=== PATIENT | female | born 1950 | race Caucasian/White ===

== ENCOUNTER → 2019-02-06 | Outpatient (REF) | payer MEDICARE ==
[~2019-02-06] MED LIST: AMLO-150; IBUP-1022 PO; LOSA50TA5 PO; NAPR-837 PO; OXYB10TA; RANI150T
[2019-02-07 12:49] LABS: PERCENT SATURATION 16.8 % (13.2-45.0)
== END ==
LOC: M LAB REF 11:21
PROVIDERS: ATTEND Internal Medicine
DX: D64.9 Anemia, unspecified (principal)

== ENCOUNTER → 2019-03-15 | Outpatient (REF) | payer MEDICARE ==
[~2019-03-15] MED LIST changes: -OXYB10TA; +OXYB10TA2
[2019-03-15 13:49] LABS: PERCENT SATURATION 17.6 % (13.2-45.0)
== END ==
LOC: M LAB REF 13:24
PROVIDERS: ATTEND Nurse Practitioner Family
DX: N18.3 Chronic kidney disease, stage 3 (moderate) (principal)

== ENCOUNTER → 2019-07-19 | Outpatient (REF) | payer MEDICARE | LOC: M LAB REF 17:18 | PROVIDERS: ATTEND Nurse Practitioner Family | DX: D64.9 Anemia, unspecified (principal) ==

== ENCOUNTER → 2020-09-03 | Outpatient (REF) | payer MEDICARE ==
[~2020-09-03] MED LIST changes: -AMLO-150; +AMLO-179; -OXYB10TA2; +OXYB10TA23
[2020-09-03 13:38] LABS: ALT/SGPT 18 U/L (12-78); BILIRUBIN,TOTAL 0.3 MG/DL (0.2-1.0); BLOOD UREA NITROGEN 45 MG/DL (7-18); C REACTIVE PROTEIN QUANTITATIV 0.36 MG/DL (0.00-0.30); CALCIUM LEVEL 9.8 MG/DL (8.8-10.2); CARBON DIOXIDE LEVEL 28 MEQ/L (21-32); CHLORIDE LEVEL 100 MEQ/L (98-107); COMPLEMENT C3 129 MG/DL (90-180); COMPLEMENT C4 27 MG/DL (10-40); CREATININE FOR GFR 1.46 MG/DL (0.55-1.30); GLUCOSE, FASTING 99 MG/DL (70-100); POTASSIUM SERUM 4.6 MEQ/L (3.5-5.1); RHEUMATOID FACTOR QUANT < 10.0 IU/ML (<15.0); SODIUM LEVEL 137 MEQ/L (136-145); TOTAL PROTEIN 7.7 GM/DL (6.4-8.2); URIC ACID 7.6 MG/DL (2.6-6.0)
[2020-09-03 13:58] LABS: HEPATITIS B SURFACE ANTIGEN NEGATIVE (NEGATIVE)
[2020-09-03 14:27] LABS: HEPATITIS C VIRUS ABY INDEX < 0.0 INDEX (<0.8)
[2020-09-05 23:09] LABS: ANA (HEP2) Positive (.); ANTI DS-DNA AB Negative (Negative); CYCLIC CITRULLINATED PEPTIDE 10 units (0-19); HEPATITIS B CORE ANTIBODY IGG Negative (Negative); SSA SJOGRENS A <0.2 AI (0.0-0.9); SSB SJOGRENS B <0.2 AI (0.0-0.9)
== END ==
LOC: M SFHCRHEU 10:13
PROVIDERS: ATTEND Internal Medicine
DX: L93.0 Discoid lupus erythematosus (principal); M35.01 Sjogren syndrome with keratoconjunctivitis; M25.50 Pain in unspecified joint; N18.32 Chronic kidney disease, stage 3b

== ENCOUNTER → 2020-09-08 | Outpatient (CLI) | payer MEDICARE ==
--- NOTE | 2020-09-09 09:44 | REP ---
INDICATION: POLYARTHRALGIA COMPARISON: None. TECHNIQUE: AP, lateral, bilateral oblique views right and left hand. FINDINGS: Right hand: Moderate arthritic changes primarily noted at the 1st and 2nd carpometacarpal joints includes subchondral sclerosis/heterogeneity with subtle subchondral cystic changes, joint space narrowing, and mild subluxation along with small amount of suspected chondrocalcinosis and heterotopic calcification. Interphalangeal joints demonstrate subchondral sclerosis with minimal joint space narrowing as well as marginal spurring primarily noted at the 1st interphalangeal and 2nd DIP joints. No acute fracture or dislocation. Left hand: Mild/early moderate arthritic changes primarily noted at the 1st and 2nd carpometacarpal joints including subchondral sclerosis, subtle heterogeneity, joint space narrowing and chondrocalcinosis as well as slight chronic subluxation. Early moderate arthritic changes at the interphalangeal joints include subchondral sclerosis with mild joint space narrowing and elements of marginal spurring primarily involving the 1st and 2nd interphalangeal joints. No evidence for acute fracture or dislocation. IMPRESSION: Mild/moderate osteoarthritic degenerative changes. <Electronically signed by Chilango Mclean > 09/09/20 [id number]
== END ==
LOC: M WUC 11:31
PROVIDERS: ATTEND Internal Medicine
DX: M25.50 Pain in unspecified joint (principal)

== ENCOUNTER → 2020-10-23 | Outpatient (REF) | payer MEDICARE ==
[2020-10-23 18:04] LABS: PERCENT SATURATION 15.8 % (13.2-45.0)
== END ==
LOC: M LAB REF 16:49
PROVIDERS: ATTEND Nurse Practitioner Family
DX: D50.9 Iron deficiency anemia, unspecified (principal)

== ENCOUNTER → 2021-03-11 | Outpatient (REF) | payer MEDICARE | LOC: M LAB REF 17:46 | PROVIDERS: ATTEND Nurse Practitioner Family | DX: N39.0 Urinary tract infection, site not specified (principal) ==

== ENCOUNTER 2021-05-18 14:21 | Inpatient (IN) | payer MEDICARE ==
[~2021-05-18] VITALS: Ht 149.9 cm; Wt 93.3 kg
[~2021-05-18 14:21] MED LIST changes: -OXYB10TA23; +OXYB10TA23 PO
[2021-05-18] MEDS ORDERED: NS 1,000 ML IV SCH ×2 (15:30→17:40)
[2021-05-18] MEDS ORDERED: NS 500 ML IV ONE (15:30)
[2021-05-18 16:01] LABS: HEMATOCRIT 30.4 % (36.0-47.0); HEMOGLOBIN 9.6 g/dl (12.0-15.5); LYMPH # 0.4 10^3/uL (1.5-5.0); LYMPH % 4.4 % (24.0-44.0); MEAN CORPUSCULAR HEMOGLOBIN 27.3 pg (27.0-33.0); MEAN CORPUSCULAR HGB CONC 31.6 g/dl (32.0-36.5); MEAN CORPUSCULAR VOLUME 86.4 fl (80.0-96.0); MONO # 0.4 10^3/uL (0.0-0.8); MONO % 4.3 % (2.0-8.0); NEUTROPHILS # 8.4 10^3/uL (1.5-8.5); NEUTROPHILS % 90.7 % (36.0-66.0); PLATELET COUNT, AUTOMATED 216 10^3/uL (150-450); RED BLOOD COUNT 3.52 10^6/uL (4.00-5.40); WHITE BLOOD COUNT 9.3 10^3/uL (4.0-10.0)
--- NOTE | 2021-05-18 16:03 | REP ---
INDICATION: cough COMPARISON: 09/19/2018 TECHNIQUE: Portable AP view of the chest FINDINGS: Considerable areas of opacity and consolidation extending from the right hilum to the right upper lobe as well as left perihilar and lower lobe areas of consolidation are noted. Visualized portions of the cardiac silhouette appears stable. No pneumothorax. No definite effusion. Skeletal structures demonstrate degenerative changes to the thoracic spine and bilateral shoulders. IMPRESSION: Significant bilateral areas of opacity/consolidation. Follow-up to resolution is required. Differential diagnosis cannot exclude malignancy. <Electronically signed by Chilango Mclean > 05/18/21 [id number]
[2021-05-18] MEDS ORDERED: dexameTHASONE 4 MG/ML 1ML VIAL (J1100 PER 1MG) IV ONE (16:10)
[2021-05-18 16:33] LABS: ALBUMIN 2.8 GM/DL (3.2-5.2); BILIRUBIN,TOTAL 0.3 MG/DL (0.2-1.0); CREATININE FOR GFR 2.17 MG/DL (0.55-1.30); POTASSIUM SERUM 3.5 MEQ/L (3.5-5.1); TOTAL PROTEIN 6.9 GM/DL (6.4-8.2)
[2021-05-18 16:58] LABS: ABG BASE EXCESS -8.3 (-2.0-2.0); ABG HCO3 18.3 MEQ/L (22.0-26.0); ABG O2 SATURATION 40.6 % (95.0-99.0); ABG PARTIAL PRESSURE CO2 41.7 mmHg (35.0-45.0); ABG STANDARD HCO3 16.8 MEQ/L (22.0-26.0); ABG TOTAL CO2 19.5 MEQ/L (23.0-31.0); ABG pH (ARTERIAL) 7.259 UNITS (7.350-7.450)
[2021-05-18 16:59] LABS: ABG PARTIAL PRESSURE O2 23.9 mmHg (75.0-100.0)
[2021-05-18] MEDS ORDERED: LOSA25TA14 PO (17:22)
[2021-05-18] MEDS ORDERED: FURO20TA2 PO (17:22)
[2021-05-18] MEDS ORDERED: ERGO500029 PO (17:27)
[2021-05-18] MEDS ORDERED: CHLO125TA PO (17:27)
[2021-05-18] MEDS ORDERED: OMEP-218 PO (17:27)
[2021-05-18] MEDS ORDERED: HOME MED LIST COMPLETE! XX SCH (17:30)
[2021-05-18] MEDS: COMBIVENT RESPIMAT 100-20MCG INHALER 4GM INH SCH ×3 (17:35→17:37)
--- NOTE | 2021-05-18 17:37 | HPEPDOC ---
[facility] Medical History & Physical Date of Admission May 18, 2021 Date of Service: May 18, 2021 History and Physical Chief complaint: Who presented to ER with lightheadedness and blurred vision; possible syncopal episode History of present illness: Patient is a 70-year-old female with a PMHx of HTN, CKD3 (Baseline Cr of 1.6), Hyperactive bladder, Seasonal allergies, who presented to the emergency room by ambulance after she was reported to have a syncopal episode. Patient reported that she was having lightheadedness and felt that she was going to pass out. However, she sat down and the next remembers her daughter mentioning that she called the ambulance. Patient denies any chest pain, shortness of breath. Reports a cough without any significant sputum production. Denies any palpitations. Patient reports that shes been experiencing these symptoms since 05/12. Patient denies any nausea, vomiting, abdominal pain, constipation. She does report some diarrhea that started this morning. Patient denies any fevers, but reports chills. She reports a poor appetite and is unsure of any changes in her weight. Past Medical History: HTN CKD3 (Baseline Cr of 1.6) Hyperactive bladder Seasonal allergies Past Surgical History: Cholecystectomy Hysterectomy Tubal ligation Allergies: See below Medications: See below Family History: - Mother with no significant past medical history - Father with a history of stroke and congestive heart failure Social History: - Denies the use of alcohol, tobacco or illicit drugs - Denies recent travel or sick contacts - Lives with , son and granddaughter - Occupation; patient is retired from [employer] Review of Systems: 10 point review of systems complete, all negative otherwise stated in HPI Physical exam: - Vitals: BP [116/65], HR [67], RR [20], Sat [95%RA], Temp [98.3F] - General: Lying in bed, Speaking in full sentences, AAOx3 - HEENT: NC, AT, PERRLA - CVS: RRR, +S1S2 - Lungs: Fair air entry bilaterally, No appreciable wheezing / rales / rhonchi - Abdomen: Soft, Non-distended, Non-tender - Extremities: LE do not have pitting edema, No calf tenderness - Neuro: 5/5 strength at bilateral LE, RUE with 5/5 strength, LUE with cast in place - Skin: No visible rashes Labs: See below Imaging: CXR 05/18: Significant bilateral areas of opacity/consolidation. Follow-up to resolution is required. Differential diagnosis cannot exclude malignancy. Duplex US 05/18: No evidence for deep venous thrombosis. EKG: See below Assessment and Plan: Elevated Cr with CKD3 - Baseline creatinine of 1.6 - Patients creatinine is 2.1 - Will hold losartan and HCTZ - Will check urine electrolytes / urinalysis - s/p NS 500c in ER - Will start IV fluid hydration Reported syncope - likely 2/2 orthostatic hypotension - 2/2 viral illness - Will check orthostatic vital signs - Will check ECHO / Telemetry - EKG reviewed - Will trend troponins - Will start IV fluids COVID19 - Patient reports a nonproductive cough and myalgia - Has not been vaccinated - Saturating well on room air - Patient has received Levofloxacin / Dexamethasone / Albuterol in the ER - Given the patient is not hypoxic; she is not a candidate for Remdesivir or Dexamethasone HTN - Will check orthostatic blood pressures - Will hold Losartan / HCTZ Left arm fracture - s/p casting at the end of April - Will have outpatient follow up with Orthopedic surgery on discharge Hyperactive bladder - c/w Oxybutynin Seasonal allergies - c/w Ranitidine DVT prophylaxis - Will start Heparin SQ Disposition: - Will keep on observation status for IV fluid hydration - Anticipate that she will require monoclonal antibodies as an outpatient infusion on discharge Vital Signs Vital Signs Date Time Temp Pulse Resp B/P (MAP) Pulse Ox O2 Delivery O2 Flow Rate FiO2 05/18/21 15:55 Room Air 05/18/21 15:54 98.3 67 20 116/65 (82) 95 Laboratory Data Labs 24H Laboratory Tests 2 05/18/21 15:39: Immature Granulocyte % (Auto) 0.6, Neutrophils (%) (Auto) 90.7H, Lymphocytes (%) (Auto) 4.4L, Monocytes (%) (Auto) 4.3, Eosinophils (%) (Auto) 0.0, Basophils (%) (Auto) 0.0, Neutrophils # (Auto) 8.4, Lymphocytes # (Auto) 0.4L, Monocytes # (Auto) 0.4, Eosinophils # (Auto) 0.0, Basophils # (Auto) 0.0, Nucleated Red Blood Cells % (auto) 0.0, Anion Gap 13, Glomerular Filtration Rate 24.0L, Calcium Level 8.0L, Total Bilirubin 0.3, Aspartate Amino Transf (AST/SGOT) 43H, Alanine Aminotransferase (ALT/SGPT) 19, Alkaline Phosphatase 68, Total Protein 6.9, Albumin 2.8L, Albumin/Globulin Ratio 0.7L 05/18/21 16:40: Blood Gas Bicarbonate Standard 16.8L, Arterial Blood pH 7.259L, Arterial Blood Partial Pressure CO2 41.7, Arterial Blood Partial Pressure O2 23.9*L, Arterial Blood Total CO2 19.5L, Arterial Blood HCO3 18.3L, Arterial Blood Base Excess - 8.3L, Arterial Blood Oxygen Saturation 40.6L CBC/BMP Laboratory Tests 05/18/21 15:39 Microbiology Microbiology 05/18/21 Respiratory Virus Panel (PCR) (ABHIJEET) - Final, Complete SARS-CoV-2 (COVID 19) Home Medications Scheduled Chlorthalidone (Chlorthalidone) 25 Mg Tablet, 25 MG PO DAILY Ergocalciferol (Vitamin D2) (Vitamin D2) 50,000 Units Cap, 50,000 UNITS PO 1XWK ON WEDNESDAYS Losartan Potassium (Losartan Potassium) 25 Mg Tablet, 25 MG PO QHS Omeprazole (Omeprazole) 20 Mg Capsule.dr, 20 MG PO DAILY Oxybutynin Chloride (Oxybutynin Chloride ER) 10 Mg Tab, 10 MG PO DAILY Allergies Coded Allergies: cephalexin (Verified Allergy, Intermediate, hives, 11/27/18) TOSHA CALDERON MD May 18, 2021 17:24
--- NOTE | 2021-05-18 17:39 | REP ---
INDICATION: shortness of breath, sedentary COMPARISON: None. TECHNIQUE: Castillo scale and color Doppler evaluation using linear high frequency transducer. FINDINGS: Ultrasound examination of the right and left lower extremity deep venous structures from the common femoral veins through the popliteal veins demonstrates normal compressibility flow and wave patterns in response to respiration and augmentation. There is no evidence for deep venous thrombosis. Evaluation of the calf veins is incomplete due to technical factors and body habitus. IMPRESSION: No evidence for deep venous thrombosis. <Electronically signed by Chilango Mclean > 05/18/21 [id number]
[2021-05-18 19:05] LABS: C REACTIVE PROTEIN QUANTITATIV 5.57 MG/DL (0.00-0.30); CALCIUM LEVEL 8.7 MG/DL (8.8-10.2); CK-MB VALUE MASS 5.5 NG/ML (<3.6); CREATININE FOR GFR 2.11 MG/DL (0.55-1.30); GLOMERULAR FILTRATION RATE 24.8 (>45); MB/CK RELATIVE INDEX 2.63 (< OR =4); POTASSIUM SERUM 3.9 MEQ/L (3.5-5.1); TROPONIN I 0.02 NG/ML (< 0.10)
--- NOTE | 2021-05-18 19:32 | ECGEPIP ---
[facility] - ED Test Date: 2021-05-18 Pat Name: GALINA GREEWNOOD Department: Room: - Gender: Female Enrollment Manager: HA : 1950 Requested By: JEANNA Abreu Order Number: [id number] Reading MD: Shonda Cameron Measurements Intervals Bovey Rate: 105 P: 12 VA: 156 QRS: -51 QRSD: 126 T: 90 QT: 374 QTc: 494 Interpretive Statements Sinus tachycardia Left axis deviation Left ventricular hypertrophy with QRS widening and repolarization abnormality ( R in aVL , Sevier product , Romhilt-Gonzalez ) Nonspecific ST T wave changes IVCD No prior ECG for comparison Electronically Signed on 05-18-2021 19:32:12 EDT by Shonda Cameron
[2021-05-18] MEDS ORDERED: LevoFLOXacin IV 750 MG in IV 1 EA IV ONE (21:00)
[2021-05-18 22:37] LABS: MB/CK RELATIVE INDEX 2.67 (< OR =4); TROPONIN I 0.02 NG/ML (< 0.10)
[2021-05-19] MEDS ORDERED: UNRESOLVED CLARIFICATION ENTRY XX SCH (00:01)
[2021-05-19] MEDS ORDERED: amLODIPine 5 MG TAB PO ONE (02:30)
[2021-05-19 03:00] VITALS: BP 121/58
[2021-05-19] MEDS: guaiFENesin ER 600 MG TAB PO SCH ×3 (03:28→20:13)
[2021-05-19] MEDS: HEPARIN SOD (PORCINE) 5000UNITS/ML 1ML VIAL/SYRINGE SC SCH ×4 (03:29→20:15)
[2021-05-19] MEDS: ACETAMINOPHEN TAB 650MG DOSE (2X325MG) PO PRN ×2 (04:49→09:23)
[2021-05-19 06:33] LABS: HEMOGLOBIN 9.2 g/dl (12.0-15.5); LYMPH # 0.4 10^3/uL (1.5-5.0); LYMPH % 6.3 % (24.0-44.0); MEAN CORPUSCULAR HEMOGLOBIN 27.6 pg (27.0-33.0); MEAN CORPUSCULAR HGB CONC 32.9 g/dl (32.0-36.5); MEAN CORPUSCULAR VOLUME 84.1 fl (80.0-96.0); MONO # 0.2 10^3/uL (0.0-0.8); MONO % 2.4 % (2.0-8.0); NEUTROPHILS # 5.7 10^3/uL (1.5-8.5); NEUTROPHILS % 90.5 % (36.0-66.0); PLATELET COUNT, AUTOMATED 202 10^3/uL (150-450); RED BLOOD COUNT 3.33 10^6/uL (4.00-5.40); WHITE BLOOD COUNT 6.3 10^3/uL (4.0-10.0)
[2021-05-19 06:50] LABS: CALCIUM LEVEL 8.2 MG/DL (8.8-10.2); CREATININE FOR GFR 1.65 MG/DL (0.55-1.30); GLOMERULAR FILTRATION RATE 32.9 (>45); MAGNESIUM LEVEL 1.8 MG/DL (1.8-2.4); POTASSIUM SERUM 3.3 MEQ/L (3.5-5.1)
[2021-05-19 07:03] LABS: CK-MB VALUE MASS 7.5 NG/ML (<3.6); MB/CK RELATIVE INDEX 2.63 (< OR =4); TROPONIN I 0.04 NG/ML (< 0.10)
[2021-05-19 08:00] VITALS: BP 113/59
[2021-05-19] MEDS ORDERED: POTASSIUM CHLORIDE 10MEQ SR TABLET PO ONE (08:05)
[2021-05-19] MEDS: OMEPRAZOLE 20 MG CAP PO SCH (09:21)
[2021-05-19] MEDS: amLODIPine 5 MG TAB PO SCH ×2 (09:21→20:14)
[2021-05-19] MEDS: oxyBUTYnin *DITROPAN XL* 5 MG TABCR PO SCH (09:22)
[2021-05-19 12:00] VITALS: BP 115/60
--- NOTE | 2021-05-19 13:24 | IPNPDOC ---
Date Seen The patient was seen on 05/19/21. Progress Note SUBJECTIVE: seen at bedside. Requires 6L to sat at 92%. Reports fatigue, SOB. Denies CP, palpitations, n/v/d. OBJECTIVE PHYSICAL EXAMINATION: VITAL SIGNS: please see below General: NAD, comfortable HEENT: PERRLA, EOMI, sclerae clear Neck: supple, normal ROM, no JVD Respiratory: fair air entry bilaterally, no crackles, no wheeze CVS: RRR, normal S1, S2, no murmurs Abdo: soft, no masses, no hepatosplenomegaly, BS+, no rebound tenderness Extremities: no edema, pulses 2+ MSK: no joint deformities, normal ROM Neuro: no focal neuro deficits, moving all 4 extremities, CN2-12 intact. Strength 5/5 in all 4 extremities. No nystagmus. Psych: calm, cooperative, AAO x 3 LABORATORY DATA, IMAGING STUDIES, MICROBIOLOGY: Please see below. DVT prophylaxis ordered?: heparin ASSESSMENT AND PLAN: 70-year-old female with a PMHx of HTN, CKD3 (Baseline Cr of 1.6), Hyperactive bladder, Seasonal allergies, who presented to the emergency room by ambulance after she was reported to have a syncopal episode. PROBLEMS: Elevated Cr with CKD3 - Baseline creatinine of 1.6 - Patients creatinine is 2.1 - Will hold losartan and HCTZ - Will check urine electrolytes / urinalysis - s/p NS 500c in ER - Will start IV fluid hydration Reported syncope - likely 2/2 orthostatic hypotension - 2/2 viral illness - Will check orthostatic vital signs - Will check ECHO / Telemetry - EKG reviewed - Will trend troponins - stop IVF COVID19 - Patient reports a nonproductive cough and myalgia - Has not been vaccinated - Patient has received Levofloxacin / Dexamethasone / Albuterol in the ER - requires 6L to maintain saturation. - start remdesivir, dexamethasone 6 mg IV daily. HTN - Will check orthostatic blood pressures - Will hold Losartan / HCTZ Left arm fracture - s/p casting at the end of April - Will have outpatient follow up with Orthopedic surgery on discharge Hyperactive bladder - c/w Oxybutynin Seasonal allergies - c/w Ranitidine DVT prophylaxis - Will start Heparin SQ Disposition: - Will keep on observation status for IV fluid hydration - Anticipate that she will require monoclonal antibodies as an outpatient infusion on discharge VS, I&O, 24H, Opal Vital Signs/I&O Vital Signs Date Time Temp Pulse Resp B/P (MAP) Pulse Ox O2 Delivery O2 Flow Rate FiO2 05/19/21 12:39 90 5.0 05/19/21 12:00 97.5 73 27 115/60 (78) Nasal Cannula I&O- Last 24 Hours up to 6 AM 05/19/21 06:00 Intake Total 700 ml Balance 700 ml Laboratory Data 24H LABS Laboratory Tests 2 05/18/21 15:39: Immature Granulocyte % (Auto) 0.6, Neutrophils (%) (Auto) 90.7H, Lymphocytes (%) (Auto) 4.4L, Monocytes (%) (Auto) 4.3, Eosinophils (%) (Auto) 0.0, Basophils (%) (Auto) 0.0, Neutrophils # (Auto) 8.4, Lymphocytes # (Auto) 0.4L, Monocytes # (Auto) 0.4, Eosinophils # (Auto) 0.0, Basophils # (Auto) 0.0, Nucleated Red Blood Cells % (auto) 0.0, Anion Gap 13, Glomerular Filtration Rate 24.0L, Calcium Level 8.0L, Total Bilirubin 0.3, Aspartate Amino Transf (AST/SGOT) 43H, Alanine Aminotransferase (ALT/SGPT) 19, Alkaline Phosphatase 68, Total Protein 6.9, Albumin 2.8L, Albumin/Globulin Ratio 0.7L 05/18/21 16:40: Blood Gas Bicarbonate Standard 16.8L, Arterial Blood pH 7.259L, Arterial Blood Partial Pressure CO2 41.7, Arterial Blood Partial Pressure O2 23.9*L, Arterial Blood Total CO2 19.5L, Arterial Blood HCO3 18.3L, Arterial Blood Base Excess - 8.3L, Arterial Blood Oxygen Saturation 40.6L 05/18/21 18:10: Anion Gap 12, Glomerular Filtration Rate 24.8L, Calcium Level 8.7L, Osmolality 299, Ferritin 650H, Lactate Dehydrogenase 530H, Total Creatine Kinase 209H, Creatine Kinase MB 5.5H, Creatine Kinase MB Relative Index 2.63, Troponin I 0.02, C-Reactive Protein, Quantitative 5.57H, AC-Bya-F-Type Natriuretic Peptide 3261H, Procalcitonin 0.05 05/18/21 21:37: Total Creatine Kinase 225H, Creatine Kinase MB 6.0H, Creatine Kinase MB Relative Index 2.67, Troponin I 0.02 05/19/21 06:06: Immature Granulocyte % (Auto) 0.8, Neutrophils (%) (Auto) 90.5H, Lymphocytes (%) (Auto) 6.3L, Monocytes (%) (Auto) 2.4, Eosinophils (%) (Auto) 0.0, Basophils (%) (Auto) 0.0, Neutrophils # (Auto) 5.7, Lymphocytes # (Auto) 0.4L, Monocytes # (Auto) 0.2, Eosinophils # (Auto) 0.0, Basophils # (Auto) 0.0, Nucleated Red Blood Cells % (auto) 0.0, Anion Gap 12, Glomerular Filtration Rate 32.9L, Calcium Level 8.2L, Magnesium Level 1.8, Total Creatine Kinase 285H, Creatine Kinase MB 7.5H, Creatine Kinase MB Relative Index 2.63, Troponin I 0.04# CBC/BMP Laboratory Tests 05/18/21 15:39 05/18/21 18:10 05/19/21 06:06 Microbiology Microbiology 05/18/21 Respiratory Virus Panel (PCR) (ABHIJEET) - Final, Complete SARS-CoV-2 (COVID 19) DIANA LLANOS MD May 19, 2021 13:24
[2021-05-19] MEDS: dexameTHASONE 4 MG/ML 1ML VIAL (J1100 PER 1MG) IV SCH (13:37)
[2021-05-19] MEDS: NYSTATIN 100,000 UNITS/GM TOPICAL PWD 15 GM TOP SCH ×2 (15:30→20:14)
[2021-05-19 16:00] VITALS: BP 118/68
[2021-05-19] MEDS ORDERED: REMDESIVIR 200 MG in NS 250 ML IV ONE (16:00)
[2021-05-19] MEDS: REMDESIVIR 100 MG in NS 250 ML IV SCH (17:08)
[2021-05-19] MEDS ORDERED: SODIUM CHLORIDE 0.9% INJ 10 ML SYR IV ONE (18:00)
[2021-05-19 20:00] VITALS: BP 128/72
[2021-05-20] VITALS: BP 122/79
[2021-05-20 04:00] VITALS: BP 118/56
[2021-05-20] MEDS: HEPARIN SOD (PORCINE) 5000UNITS/ML 1ML VIAL/SYRINGE SC SCH (05:49)
[2021-05-20 06:32] LABS: HEMOGLOBIN 9.6 g/dl (12.0-15.5); LYMPH # 0.7 10^3/uL (1.5-5.0); LYMPH % 8.5 % (24.0-44.0); MEAN CORPUSCULAR HEMOGLOBIN 27.4 pg (27.0-33.0); MEAN CORPUSCULAR VOLUME 85.7 fl (80.0-96.0); MONO # 0.6 10^3/uL (0.0-0.8); MONO % 8.1 % (2.0-8.0); NEUTROPHILS # 6.4 10^3/uL (1.5-8.5); NEUTROPHILS % 82.1 % (36.0-66.0); PLATELET COUNT, AUTOMATED 218 10^3/uL (150-450); WHITE BLOOD COUNT 7.8 10^3/uL (4.0-10.0)
[2021-05-20 06:40] LABS: INR 1.03; PROTHROMBIN TIME 13.9 SECONDS (12.7-14.5)
[2021-05-20 06:41] LABS: PARTIAL THROMBOPLASTIN TIME 26.6 SECONDS (25.9-37.0)
[2021-05-20 06:43] LABS: D-DIMER QUANT 1927.3 ng/ml (<500)
[2021-05-20 06:59] LABS: ALBUMIN 2.5 GM/DL (3.2-5.2); ALT/SGPT 21 U/L (12-78); BILIRUBIN,DIRECT < 0.1 MG/DL (0.0-0.2); BILIRUBIN,TOTAL 0.3 MG/DL (0.2-1.0); BLOOD UREA NITROGEN 47 MG/DL (7-18); C REACTIVE PROTEIN QUANTITATIV 3.48 MG/DL (0.00-0.30); CALCIUM LEVEL 8.6 MG/DL (8.8-10.2); CARBON DIOXIDE LEVEL 19 MEQ/L (21-32); CHLORIDE LEVEL 110 MEQ/L (98-107); CPK CREATINE PHOSPHOKINASE 397 U/L (26-192); CREATININE FOR GFR 1.54 MG/DL (0.55-1.30); FERRITIN 804 NG/ML (8-252); GLOMERULAR FILTRATION RATE 35.7 (>45); GLUCOSE, FASTING 109 MG/DL (70-100); LDH LACTATE DEHYDROGENASE 554 U/L (84-246); MAGNESIUM LEVEL 1.8 MG/DL (1.8-2.4); POTASSIUM SERUM 3.8 MEQ/L (3.5-5.1); SODIUM LEVEL 139 MEQ/L (136-145); TOTAL PROTEIN 7.2 GM/DL (6.4-8.2); TROPONIN I 0.02 NG/ML (< 0.10)
[2021-05-20 08:00] VITALS: BP 106/57
[2021-05-20] MEDS ORDERED: COMBIVENT RESPIMAT 100-20MCG INHALER 4GM INH PRN (08:05)
[2021-05-20] MEDS: NYSTATIN 100,000 UNITS/GM TOPICAL PWD 15 GM TOP SCH ×2 (09:03→20:47)
[2021-05-20] MEDS: dexameTHASONE 4 MG/ML 1ML VIAL (J1100 PER 1MG) IV SCH (09:04)
[2021-05-20] MEDS: guaiFENesin ER 600 MG TAB PO SCH ×2 (09:04→20:47)
[2021-05-20] MEDS: OMEPRAZOLE 20 MG CAP PO SCH (09:05)
[2021-05-20] MEDS: amLODIPine 5 MG TAB PO SCH ×2 (09:05→20:47)
[2021-05-20] MEDS: oxyBUTYnin *DITROPAN XL* 5 MG TABCR PO SCH (09:05)
--- NOTE | 2021-05-20 11:47 | REP ---
INDICATION: hypoxia, covid COMPARISON: 05/18/2021 TECHNIQUE: Portable AP view of the chest FINDINGS: Diffuse bilateral airspace disease appears increased from prior examination specifically involving right mid to lower lung zone and left base. Cardiac silhouette is stable. No definite effusion. No pneumothorax. Skeletal structures are stable. IMPRESSION: Increased opacities noted bilaterally. <Electronically signed by Chilango Mclean > 05/20/21 1148
[2021-05-20 11:50] VITALS: BP 111/75
--- NOTE | 2021-05-20 12:26 | IPNPDOC ---
Date Seen The patient was seen on 05/20/21. Progress Note SUBJECTIVE: Patient seen examined at bedside. Oxygen requirement has increased patient is now on Vapotherm. She was started on dexamethasone and remdesivir on 05/19/2021. She appears to be quite comfortable on Vapotherm but desaturates when it is taken off. She denies any chest pain, palpitations, nausea, vomiting and diarrhea. OBJECTIVE PHYSICAL EXAMINATION: VITAL SIGNS: please see below General: NAD, comfortable HEENT: PERRLA, EOMI, sclerae clear Neck: supple, normal ROM, no JVD Respiratory: fair air entry bilaterally, no crackles, no wheeze CVS: RRR, normal S1, S2, no murmurs Abdo: soft, no masses, no hepatosplenomegaly, BS+, no rebound tenderness Extremities: no edema, pulses 2+ MSK: no joint deformities, normal ROM Neuro: no focal neuro deficits, moving all 4 extremities, CN2-12 intact. Strength 5/5 in all 4 extremities. No nystagmus. Psych: calm, cooperative, AAO x 3 LABORATORY DATA, IMAGING STUDIES, MICROBIOLOGY: Please see below. DVT prophylaxis ordered?: Heparin has been switched to weightbase prophylactic dosing of Lovenox per Covid guidelines to 0.5 mg/kg every 12. ASSESSMENT AND PLAN: 70-year-old female with a PMHx of HTN, CKD3 (Baseline Cr of 1.6), Hyperactive bladder, Seasonal allergies, who presented to the emergency room by ambulance after she was reported to have a syncopal episode. She was found to have COVID-19. Patient's oxygen requirements have increased from room air to nasal cannula to now Vapotherm. PROBLEMS: TRINA on CKD3 - Creatinine has now improved to baseline this morning it is 1.54. - BP appropriate, can resume losartan and HCTZ as BP rises. - urine lytes were not sent. Reported syncope - likely 2/2 orthostatic hypotension - 2/2 viral illness - ordered orthostatic vital signs., - 2D echo pending. - no events on telemetry - Troponin remains in normal limits. COVID19 - Patient reports a nonproductive cough and myalgia - Has not been vaccinated - Patient has received Levofloxacin / Dexamethasone / Albuterol in the ER - requires 6L to maintain saturation. - Remdesivir (Day #2), Dexamethasone 6 mg IV (Day #2) - Start Baricitinib. D/w Dr. Medina of pulmonology, agrees with plan. HTN - Will check orthostatic blood pressures - Will hold Losartan / HCTZ Left arm fracture - s/p casting at the end of April - Will have outpatient follow up with Orthopedic surgery on discharge Hyperactive bladder - c/w Oxybutynin Seasonal allergies - c/w Ranitidine DVT prophylaxis - Will start Heparin SQ Disposition: - change to inpatient status, as now on vapotherm - admission will span > 2 midnights. DVT ppx: lovenox 0.5 mg q12h. VS, I&O, 24H, Fishbone Vital Signs/I&O Vital Signs Date Time Temp Pulse Resp B/P (MAP) Pulse Ox O2 Delivery O2 Flow Rate FiO2 05/20/21 12:00 96 HVNI-Vapotherm 40.0 100 05/20/21 11:50 97.5 98 22 111/75 (87) I&O- Last 24 Hours up to 6 AM 05/20/21 05:59 Intake Total 2300 ml Output Total 350 ml Balance 1950 ml Laboratory Data 24H LABS Laboratory Tests 2 05/20/21 06:12: Immature Granulocyte % (Auto) 1.3, Neutrophils (%) (Auto) 82.1H, Lymphocytes (%) (Auto) 8.5L, Monocytes (%) (Auto) 8.1H, Eosinophils (%) (Auto) 0.0, Basophils (%) (Auto) 0.0, Neutrophils # (Auto) 6.4, Lymphocytes # (Auto) 0.7L, Monocytes # (Auto) 0.6, Eosinophils # (Auto) 0.0, Basophils # (Auto) 0.0, Nucleated Red Blood Cells % (auto) 0.0, Prothrombin Time 13.9, Prothromb Time International Ratio 1.03, Activated Partial Thromboplast Time 26.6, Fibrinogen 436, D-Dimer, Quantitative 1927.30H, Anion Gap 10, Glomerular Filtration Rate 35.7L, Calcium Level 8.6L, Magnesium Level 1.8, Ferritin 804H, Total Bilirubin 0.3, Direct Bilirubin < 0.1, Aspartate Amino Transf (AST/SGOT) 52H, Alanine Aminotransferase (ALT/SGPT) 21, Alkaline Phosphatase 67, Lactate Dehydrogenase 554H, Total Creatine Kinase 397H, Troponin I 0.02#, C-Reactive Protein, Quantitative 3.48H, Total Protein 7.2, Albumin 2.5L, Albumin/Globulin Ratio 0.5L CBC/BMP Laboratory Tests 05/20/21 06:12 Microbiology Microbiology 05/18/21 Respiratory Virus Panel (PCR) (ABHIJEET) - Final, Complete SARS-CoV-2 (COVID 19) DIANA LLANOS MD May 20, 2021 12:26
[2021-05-20] MEDS: BARICITINIB 2MG TABLET (OLUMIANT) FOR EUA PO SCH (14:07)
[2021-05-20 16:00] VITALS: BP 106/60
[2021-05-20] MEDS: SODIUM CHLORIDE 0.9% INJ 10 ML SYR IV SCH (16:03)
[2021-05-20 20:00] VITALS: BP 116/69
[2021-05-21] VITALS: BP 109/60
[2021-05-21 04:00] VITALS: BP 137/62
[2021-05-21 06:03] LABS: HEMATOCRIT 30.1 % (36.0-47.0); HEMOGLOBIN 9.6 g/dl (12.0-15.5); LYMPH # 1.1 10^3/uL (1.5-5.0); LYMPH % 15.7 % (24.0-44.0); MEAN CORPUSCULAR HEMOGLOBIN 27.2 pg (27.0-33.0); MEAN CORPUSCULAR HGB CONC 31.9 g/dl (32.0-36.5); MEAN CORPUSCULAR VOLUME 85.3 fl (80.0-96.0); MONO # 0.9 10^3/uL (0.0-0.8); MONO % 12.7 % (2.0-8.0); NEUTROPHILS # 4.9 10^3/uL (1.5-8.5); PLATELET COUNT, AUTOMATED 268 10^3/uL (150-450); RED BLOOD COUNT 3.53 10^6/uL (4.00-5.40)
[2021-05-21 06:23] LABS: CALCIUM LEVEL 8.5 MG/DL (8.8-10.2); CREATININE FOR GFR 1.38 MG/DL (0.55-1.30); GLOMERULAR FILTRATION RATE 40.5 (>45); MAGNESIUM LEVEL 1.9 MG/DL (1.8-2.4)
[2021-05-21] MEDS ORDERED: FLUBLOK(EGG FREE)(QUAD)INFLUENZA VACC 0.5ML SYRINGE 18YRS & OLDER IM ONE (09:00)
[2021-05-21] MEDS: dexameTHASONE 4 MG/ML 1ML VIAL (J1100 PER 1MG) IV SCH (09:29)
[2021-05-21] MEDS: amLODIPine 5 MG TAB PO SCH ×2 (09:30→20:22)
[2021-05-21] MEDS: BARICITINIB 2MG TABLET (OLUMIANT) FOR EUA PO SCH (09:30)
[2021-05-21] MEDS: NYSTATIN 100,000 UNITS/GM TOPICAL PWD 15 GM TOP SCH ×2 (09:30→20:24)
[2021-05-21] MEDS: oxyBUTYnin *DITROPAN XL* 5 MG TABCR PO SCH (09:30)
[2021-05-21] MEDS: guaiFENesin ER 600 MG TAB PO SCH ×2 (09:31→20:23)
[2021-05-21] MEDS: OMEPRAZOLE 20 MG CAP PO SCH (09:31)
[2021-05-21 16:00] VITALS: BP 112/64
[2021-05-21] MEDS: SODIUM CHLORIDE 0.9% INJ 10 ML SYR IV SCH (16:43)
[2021-05-21] MEDS: REMDESIVIR 100 MG in NS 250 ML IV SCH (16:43)
[2021-05-21] MEDS: ENOXAPARIN 60MG/0.6ML SYRINGE (J1650 PER 10MG) SC SCH (17:50)
[2021-05-21] MEDS ORDERED: FUROSEMIDE 40MG/4ML VIAL (J1940) IV ONE (18:30)
[2021-05-21 20:22] VITALS: BP 114/70
[2021-05-22] VITALS (7 sets, daily range): BP systolic 110–128; BP diastolic 57–67
[2021-05-22 06:54] LABS: HEMATOCRIT 31.5 % (36.0-47.0); HEMOGLOBIN 10.1 g/dl (12.0-15.5); MEAN CORPUSCULAR HEMOGLOBIN 27.2 pg (27.0-33.0); MEAN CORPUSCULAR HGB CONC 32.1 g/dl (32.0-36.5); MEAN CORPUSCULAR VOLUME 84.9 fl (80.0-96.0); PLATELET COUNT, AUTOMATED 283 10^3/uL (150-450); RED BLOOD COUNT 3.71 10^6/uL (4.00-5.40); WHITE BLOOD COUNT 7.3 10^3/uL (4.0-10.0)
[2021-05-22] MEDS: ENOXAPARIN 60MG/0.6ML SYRINGE (J1650 PER 10MG) SC SCH ×2 (06:55→18:29)
[2021-05-22 07:17] LABS: CALCIUM LEVEL 8.4 MG/DL (8.8-10.2); CREATININE FOR GFR 1.53 MG/DL (0.55-1.30); GLOMERULAR FILTRATION RATE 35.9 (>45); POTASSIUM SERUM 3.7 MEQ/L (3.5-5.1)
[2021-05-22 08:10] LABS: ATYPICAL LYMPH 1 % (0-5); LYMPHOCYTES 21 % (16-44); METAMYELOCYTES 1 % (0-0); MONOCYTES 3 % (0-5); NEUTROPHILS 73 % (28-66)
[2021-05-22 08:11] LABS: ANISOCYTOSIS 1+; MICROCYTOSIS 1+; PLATELET ESTIMATE NORMAL (NORMAL)
[2021-05-22] MEDS: dexameTHASONE 4 MG/ML 1ML VIAL (J1100 PER 1MG) IV SCH (09:19)
[2021-05-22] MEDS: guaiFENesin ER 600 MG TAB PO SCH ×2 (09:19→20:12)
[2021-05-22] MEDS: amLODIPine 5 MG TAB PO SCH ×2 (09:19→20:13)
[2021-05-22] MEDS: OMEPRAZOLE 20 MG CAP PO SCH (09:19)
[2021-05-22] MEDS: NYSTATIN 100,000 UNITS/GM TOPICAL PWD 15 GM TOP SCH ×2 (09:19→20:14)
[2021-05-22] MEDS: oxyBUTYnin *DITROPAN XL* 5 MG TABCR PO SCH (09:20)
[2021-05-22] MEDS: BARICITINIB 2MG TABLET (OLUMIANT) FOR EUA PO SCH (09:20)
[2021-05-22] MEDS: SODIUM CHLORIDE 0.9% INJ 10 ML SYR IV SCH (17:00)
[2021-05-22] MEDS: REMDESIVIR 100 MG in NS 250 ML IV SCH (18:29)
[2021-05-22] MEDS ORDERED: LOSARTAN 25 MG TAB PO SCH (21:00)
--- NOTE | 2021-05-22 21:06 | IPNPDOC ---
Date Seen The patient was seen on 05/21/21. Progress Note SUBJECTIVE: Patient seen examined at bedside. Oxygen requirement has increased patient is now on Vapotherm. She was started on dexamethasone and remdesivir on 05/19/2021. She appears to be quite comfortable on Vapotherm but desaturates when it is taken off. She denies any chest pain, palpitations, nausea, vomiting and diarrhea. OBJECTIVE PHYSICAL EXAMINATION: VITAL SIGNS: please see below General: NAD, comfortable HEENT: PERRLA, EOMI, sclerae clear Neck: supple, normal ROM, no JVD Respiratory: fair air entry bilaterally, no crackles, no wheeze CVS: RRR, normal S1, S2, no murmurs Abdo: soft, no masses, no hepatosplenomegaly, BS+, no rebound tenderness Extremities: no edema, pulses 2+ MSK: no joint deformities, normal ROM Neuro: no focal neuro deficits, moving all 4 extremities, CN2-12 intact. Strength 5/5 in all 4 extremities. No nystagmus. Psych: calm, cooperative, AAO x 3 LABORATORY DATA, IMAGING STUDIES, MICROBIOLOGY: Please see below. DVT prophylaxis ordered?: Heparin has been switched to weightbase prophylactic dosing of Lovenox per Covid guidelines to 0.5 mg/kg every 12. ASSESSMENT AND PLAN: 70-year-old female with a PMHx of HTN, CKD3 (Baseline Cr of 1.6), Hyperactive bladder, Seasonal allergies, who presented to the emergency room by ambulance after she was reported to have a syncopal episode. She was found to have COVID-19. Patient's oxygen requirements have increased from room air to nasal cannula to now Vapotherm. PROBLEMS: TRINA on CKD3 - Creatinine has now improved to baseline this morning it is 1.54. - BP appropriate, can resume losartan and HCTZ as BP rises. - urine lytes were not sent. Reported syncope - likely 2/2 orthostatic hypotension - 2/2 viral illness - ordered orthostatic vital signs., - 2D echo pending. - no events on telemetry - Troponin remains in normal limits. COVID19 - Patient reports a nonproductive cough and myalgia - Has not been vaccinated - Patient has received Levofloxacin / Dexamethasone / Albuterol in the ER - requires 6L to maintain saturation. - Remdesivir (Day #2), Dexamethasone 6 mg IV (Day #2) - Start Baricitinib. D/w Dr. Medina of pulmonology, agrees with plan. HTN - Will check orthostatic blood pressures - Will hold Losartan / HCTZ Left arm fracture - s/p casting at the end of April - Will have outpatient follow up with Orthopedic surgery on discharge Hyperactive bladder - c/w Oxybutynin Seasonal allergies - c/w Ranitidine DVT prophylaxis - Will start Heparin SQ Disposition: - change to inpatient status, as now on vapotherm - admission will span > 2 midnights. DVT ppx: lovenox 0.5 mg q12h. VS, I&O, 24H, Fishbone Vital Signs/I&O Vital Signs Date Time Temp Pulse Resp B/P (MAP) Pulse Ox O2 Delivery O2 Flow Rate FiO2 05/22/21 20:13 76 128/65 05/22/21 20:11 98.7 20 93 HVNI-Vapotherm 35.0 80 I&O- Last 24 Hours up to 6 AM 05/22/21 06:00 Intake Total 0 ml Output Total 425 ml Balance -425 ml Laboratory Data 24H LABS Laboratory Tests 2 05/22/21 06:36: Neutrophils (%) (Auto) , Nucleated Red Blood Cells % (auto) 0.0, Neutrophils 73H, Band Neutrophils 1, Lymphocytes (Manual) 21, Monocytes (Manual) 3, Metamyelocytes 1H, Atypical Lymphocytes 1, Anisocytosis 1+, Microcytosis 1+, Platelet Estimate NORMAL 05/22/21 06:37: Anion Gap 9, Glomerular Filtration Rate 35.9L, Calcium Level 8.4L, Magnesium Level 2.0 CBC/BMP Laboratory Tests 05/22/21 06:36 05/22/21 06:37 Microbiology Microbiology 05/18/21 Respiratory Virus Panel (PCR) (ABHIJEET) - Final, Complete SARS-CoV-2 (COVID 19) DIANA LLANOS MD May 22, 2021 21:06
--- NOTE | 2021-05-22 21:07 | IPNPDOC ---
Date Seen The patient was seen on 05/22/21. Progress Note SUBJECTIVE: Patient seen examined at bedside. reduced vapotherm settings. FiO2 80% OBJECTIVE PHYSICAL EXAMINATION: VITAL SIGNS: please see below General: NAD, comfortable HEENT: PERRLA, EOMI, sclerae clear Neck: supple, normal ROM, no JVD Respiratory: fair air entry bilaterally, no crackles, no wheeze CVS: RRR, normal S1, S2, no murmurs Abdo: soft, no masses, no hepatosplenomegaly, BS+, no rebound tenderness Extremities: no edema, pulses 2+ MSK: no joint deformities, normal ROM Neuro: no focal neuro deficits, moving all 4 extremities, CN2-12 intact. Strength 5/5 in all 4 extremities. No nystagmus. Psych: calm, cooperative, AAO x 3 LABORATORY DATA, IMAGING STUDIES, MICROBIOLOGY: Please see below. DVT prophylaxis ordered?: Heparin has been switched to weightbase prophylactic dosing of Lovenox per Covid guidelines to 0.5 mg/kg every 12. ASSESSMENT AND PLAN: 70-year-old female with a PMHx of HTN, CKD3 (Baseline Cr of 1.6), Hyperactive bladder, Seasonal allergies, who presented to the emergency room by ambulance after she was reported to have a syncopal episode. She was found to have COVID-19. Patient's oxygen requirements have increased from room air to nasal cannula to now Vapotherm. PROBLEMS: TRINA on CKD3 - Creatinine has now improved to baseline this morning it is 1.54. - resume losartan and HCTZ as BP rises. - urine lytes were not sent. Reported syncope - likely 2/2 orthostatic hypotension - 2/2 viral illness - ordered orthostatic vital signs., - 2D echo pending. - no events on telemetry - Troponin remains in normal limits. COVID19 - Patient reports a nonproductive cough and myalgia - Has not been vaccinated - Patient has received Levofloxacin / Dexamethasone / Albuterol in the ER - requires 6L to maintain saturation. - Remdesivir (Day #4), Dexamethasone 6 mg IV (Day #4) - B aricitinib (Day #2). D/w Dr. Medina of pulmonology, agrees with plan. HTN - Will check orthostatic blood pressures - Will hold Losartan / HCTZ Left arm fracture - s/p casting at the end of April - Will have outpatient follow up with Orthopedic surgery on discharge Hyperactive bladder - c/w Oxybutynin Seasonal allergies - c/w Ranitidine DVT prophylaxis - Will start Heparin SQ Disposition: - change to inpatient status, as now on vapotherm - admission will span > 2 midnights. DVT ppx: lovenox 0.5 mg q12h. VS, I&O, 24H, Fishbone Vital Signs/I&O Vital Signs Date Time Temp Pulse Resp B/P (MAP) Pulse Ox O2 Delivery O2 Flow Rate FiO2 05/22/21 20:13 76 128/65 05/22/21 20:11 98.7 20 93 HVNI-Vapotherm 35.0 80 I&O- Last 24 Hours up to 6 AM 05/22/21 06:00 Intake Total 0 ml Output Total 425 ml Balance -425 ml Laboratory Data 24H LABS Laboratory Tests 2 05/22/21 06:36: Neutrophils (%) (Auto) , Nucleated Red Blood Cells % (auto) 0.0, Neutrophils 73H, Band Neutrophils 1, Lymphocytes (Manual) 21, Monocytes (Manual) 3, Metamyelocytes 1H, Atypical Lymphocytes 1, Anisocytosis 1+, Microcytosis 1+, Platelet Estimate NORMAL 05/22/21 06:37: Anion Gap 9, Glomerular Filtration Rate 35.9L, Calcium Level 8.4L, Magnesium Level 2.0 CBC/BMP Laboratory Tests 05/22/21 06:36 05/22/21 06:37 Microbiology Microbiology 05/18/21 Respiratory Virus Panel (PCR) ([facility]HIJEET) - Final, Complete SARS-CoV-2 (COVID 19) DIANA LLANOS MD May 22, 2021 21:06
[2021-05-22] MEDS ORDERED: FUROSEMIDE 20MG/2ML VIAL (J1940) IV ONE (21:10)
[2021-05-23 04:06] VITALS: BP 115/63
[2021-05-23] MEDS: ENOXAPARIN 60MG/0.6ML SYRINGE (J1650 PER 10MG) SC SCH ×2 (06:27→17:18)
[2021-05-23 08:05] LABS: HEMATOCRIT 31.9 % (36.0-47.0); HEMOGLOBIN 10.4 g/dl (12.0-15.5); MEAN CORPUSCULAR HEMOGLOBIN 27.4 pg (27.0-33.0); MEAN CORPUSCULAR HGB CONC 32.6 g/dl (32.0-36.5); MEAN CORPUSCULAR VOLUME 83.9 fl (80.0-96.0); PLATELET COUNT, AUTOMATED 323 10^3/uL (150-450); WHITE BLOOD COUNT 10.8 10^3/uL (4.0-10.0)
[2021-05-23 08:29] LABS: CREATININE FOR GFR 1.38 MG/DL (0.55-1.30); GLOMERULAR FILTRATION RATE 40.5 (>45); MAGNESIUM LEVEL 1.9 MG/DL (1.8-2.4); POTASSIUM SERUM 3.7 MEQ/L (3.5-5.1)
[2021-05-23 08:42] VITALS: BP 111/67
[2021-05-23] MEDS: dexameTHASONE 4 MG/ML 1ML VIAL (J1100 PER 1MG) IV SCH (08:45)
[2021-05-23] MEDS: oxyBUTYnin *DITROPAN XL* 5 MG TABCR PO SCH (08:45)
[2021-05-23] MEDS: guaiFENesin ER 600 MG TAB PO SCH ×2 (08:45→20:24)
[2021-05-23] MEDS: CHLORTHALIDONE 25 MG TAB PO SCH (08:45)
[2021-05-23] MEDS: OMEPRAZOLE 20 MG CAP PO SCH (08:45)
[2021-05-23] MEDS: BARICITINIB 2MG TABLET (OLUMIANT) FOR EUA PO SCH (08:46)
[2021-05-23] MEDS: NYSTATIN 100,000 UNITS/GM TOPICAL PWD 15 GM TOP SCH ×2 (08:46→20:25)
[2021-05-23] MEDS: amLODIPine 5 MG TAB PO SCH ×2 (08:46→20:24)
[2021-05-23 09:08] LABS: LYMPHOCYTES 14 % (16-44); METAMYELOCYTES 2 % (0-0); MONOCYTES 15 % (0-5); MYELOCYTES 1 % (0-0); NEUTROPHILS 67 % (28-66)
[2021-05-23 09:09] LABS: PLATELET ESTIMATE NORMAL (NORMAL)
[2021-05-23 09:11] LABS: SCHISTOCYTES 1+
[2021-05-23 12:03] VITALS: BP 114/66
[2021-05-23 16:25] VITALS: BP 116/66
[2021-05-23] MEDS: SODIUM CHLORIDE 0.9% INJ 10 ML SYR IV SCH (17:18)
[2021-05-23] MEDS: REMDESIVIR 100 MG in NS 250 ML IV SCH (17:18)
--- NOTE | 2021-05-23 18:39 | IPNPDOC ---
Date Seen The patient was seen on 05/23/21. Progress Note SUBJECTIVE: Patient seen examined at bedside. reduced vapotherm settings. FiO2 80% OBJECTIVE PHYSICAL EXAMINATION: VITAL SIGNS: please see below General: NAD, comfortable HEENT: PERRLA, EOMI, sclerae clear Neck: supple, normal ROM, no JVD Respiratory: fair air entry bilaterally, no crackles, no wheeze CVS: RRR, normal S1, S2, no murmurs Abdo: soft, no masses, no hepatosplenomegaly, BS+, no rebound tenderness Extremities: no edema, pulses 2+ MSK: no joint deformities, normal ROM Neuro: no focal neuro deficits, moving all 4 extremities, CN2-12 intact. Strength 5/5 in all 4 extremities. No nystagmus. Psych: calm, cooperative, AAO x 3 LABORATORY DATA, IMAGING STUDIES, MICROBIOLOGY: Please see below. DVT prophylaxis ordered?: Heparin has been switched to weightbase prophylactic dosing of Lovenox per Covid guidelines to 0.5 mg/kg every 12. ASSESSMENT AND PLAN: 70-year-old female with a PMHx of HTN, CKD3 (Baseline Cr of 1.6), Hyperactive bladder, Seasonal allergies, who presented to the emergency room by ambulance after she was reported to have a syncopal episode. She was found to have COVID-19. Patient's oxygen requirements have increased from room air to nasal cannula to now Vapotherm. PROBLEMS: TRINA on CKD3 - Creatinine has now improved to baseline this morning it is 1.54. - resume losartan and HCTZ as BP rises. - urine lytes were not sent. Reported syncope - likely 2/2 orthostatic hypotension - 2/2 viral illness - ordered orthostatic vital signs., - 2D echo pending. - no events on telemetry - Troponin remains in normal limits. COVID19 - Patient reports a nonproductive cough and myalgia - Has not been vaccinated - Patient has received Levofloxacin / Dexamethasone / Albuterol in the ER - requires 6L to maintain saturation. - Remdesivir (Day #4), Dexamethasone 6 mg IV (Day #4) - B aricitinib (Day #2). D/w Dr. Medina of pulmonology, agrees with plan. HTN - Will check orthostatic blood pressures - Will hold Losartan / HCTZ Left arm fracture - s/p casting at the end of April - Will have outpatient follow up with Orthopedic surgery on discharge Hyperactive bladder - c/w Oxybutynin Seasonal allergies - c/w Ranitidine DVT prophylaxis - Will start Heparin SQ Disposition: - change to inpatient status, as now on vapotherm - admission will span > 2 midnights. DVT ppx: lovenox 0.5 mg q12h. VS, I&O, 24H, Fishbone Vital Signs/I&O Vital Signs Date Time Temp Pulse Resp B/P (MAP) Pulse Ox O2 Delivery O2 Flow Rate FiO2 05/23/21 16:25 95 HVNI-Vapotherm 25.0 70 05/23/21 16:25 98.5 71 20 116/66 (83) I&O- Last 24 Hours up to 6 AM 05/23/21 06:00 Intake Total 840 ml Output Total 550 ml Balance 290 ml Laboratory Data 24H LABS Laboratory Tests 2 05/23/21 06:39: Immature Granulocyte % (Auto) , Neutrophils (%) (Auto) , Nucleated Red Blood Cells % (auto) 0.0, Neutrophils 67H, Band Neutrophils 1, Lymphocytes (Manual) 14L, Monocytes (Manual) 15H, Metamyelocytes 2H, Myelocytes 1H, Schistocytes 1+, Platelet Estimate NORMAL, Anion Gap 9, Glomerular Filtration Rate 40.5L, Calcium Level 9.0, Magnesium Level 1.9 CBC/BMP Laboratory Tests 05/23/21 06:39 Microbiology Microbiology 05/18/21 Respiratory Virus Panel (PCR) ([facility]HIJEET) - Final, Complete SARS-CoV-2 (COVID 19) DIANA LLANOS MD May 23, 2021 18:39
[2021-05-23 19:25] VITALS: BP 120/70
[2021-05-23] MEDS: LOSARTAN 25 MG TAB PO SCH (20:25)
[2021-05-24] VITALS (7 sets, daily range): BP systolic 85–109; BP diastolic 53–91
[2021-05-24] MEDS: ENOXAPARIN 60MG/0.6ML SYRINGE (J1650 PER 10MG) SC SCH ×2 (05:03→17:19)
[2021-05-24 06:40] LABS: HEMATOCRIT 32.4 % (36.0-47.0); HEMOGLOBIN 10.6 g/dl (12.0-15.5); MEAN CORPUSCULAR HEMOGLOBIN 27.5 pg (27.0-33.0); MEAN CORPUSCULAR HGB CONC 32.7 g/dl (32.0-36.5); MEAN CORPUSCULAR VOLUME 84.2 fl (80.0-96.0); PLATELET COUNT, AUTOMATED 351 10^3/uL (150-450); RED BLOOD COUNT 3.85 10^6/uL (4.00-5.40); WHITE BLOOD COUNT 15.2 10^3/uL (4.0-10.0)
[2021-05-24 07:14] LABS: CALCIUM LEVEL 8.3 MG/DL (8.8-10.2); CREATININE FOR GFR 1.37 MG/DL (0.55-1.30); GLOMERULAR FILTRATION RATE 40.8 (>45); MAGNESIUM LEVEL 1.9 MG/DL (1.8-2.4); POTASSIUM SERUM 3.9 MEQ/L (3.5-5.1)
[2021-05-24 08:00] LABS: LYMPHOCYTES 13 % (16-44); METAMYELOCYTES 1 % (0-0); MONOCYTES 13 % (0-5); MYELOCYTES 2 % (0-0); NEUTROPHILS 71 % (28-66)
[2021-05-24 08:02] LABS: PLATELET ESTIMATE NORMAL (NORMAL)
[2021-05-24] MEDS: amLODIPine 5 MG TAB PO SCH (09:00)
[2021-05-24] MEDS: guaiFENesin ER 600 MG TAB PO SCH ×2 (09:35→19:45)
[2021-05-24] MEDS: OMEPRAZOLE 20 MG CAP PO SCH (09:35)
[2021-05-24] MEDS: oxyBUTYnin *DITROPAN XL* 5 MG TABCR PO SCH (09:35)
[2021-05-24] MEDS: BARICITINIB 2MG TABLET (OLUMIANT) FOR EUA PO SCH (09:35)
[2021-05-24] MEDS: CHLORTHALIDONE 25 MG TAB PO SCH (09:36)
[2021-05-24] MEDS: dexameTHASONE 4 MG/ML 1ML VIAL (J1100 PER 1MG) IV SCH (09:36)
[2021-05-24] MEDS: NYSTATIN 100,000 UNITS/GM TOPICAL PWD 15 GM TOP SCH ×2 (09:37→19:45)
--- NOTE | 2021-05-24 14:56 | IPNPDOC ---
Date Seen The patient was seen on 05/24/21. Progress Note SUBJECTIVE: Patient was seen and examined at bedside. Doing better this morning. Weaning down Vapotherm flow rate to 20 L/min and FiO2 down to 50%. Patient is motivated to return home. She denies any chest pain palpitations nausea vomiting diarrhea fevers or chills. OBJECTIVE PHYSICAL EXAMINATION: VITAL SIGNS: please see below General: NAD, comfortable HEENT: PERRLA, EOMI, sclerae clear Neck: supple, normal ROM, no JVD Respiratory: fair air entry bilaterally, no crackles, no wheeze CVS: RRR, normal S1, S2, no murmurs Abdo: soft, no masses, no hepatosplenomegaly, BS+, no rebound tenderness Extremities: 1+ nonpitting edema no cyanosis. Cap refill less than 2 seconds MSK: no joint deformities, normal ROM Neuro: no focal neuro deficits, moving all 4 extremities, CN2-12 intact. Stre ngth 5/5 in all 4 extremities. No nystagmus. Psych: calm, cooperative, AAO x 3 LABORATORY DATA, IMAGING STUDIES, MICROBIOLOGY: Please see below. DVT prophylaxis ordered?: Heparin has been switched to weightbase prophylactic dosing of Lovenox per Covid guidelines to 0.5 mg/kg every 12. ASSESSMENT AND PLAN: 70-year-old female with a PMHx of HTN, CKD3 (Baseline Cr of 1.6), Hyperactive bladder, Seasonal allergies, who presented to the emergency room by ambulance after she was reported to have a syncopal episode. She was found to have COVID-19. Presently on vaportherm. PROBLEMS: TRINA on CKD3 - Cr at baseline 1.37. - resumed chlorthalidone 25 mg PO daily, losartan 25 mg qhs. Amlodipine decreased to 5 mg PO daily. Reported syncope - likely 2/2 orthostatic hypotension - 2/2 viral illness - ordered orthostatic vital signs., - 2D echo pending. - no events on telemetry COVID19 - Patient reports a nonproductive cough and myalgia - Has not been vaccinated - Patient has received Levofloxacin / Dexamethasone / Albuterol in the ER - Remdesivir (Day #6), Dexamethasone 6 mg IV (Day #6) - Baricitinib (Day #5). D/w Dr. Medina of pulmonology, agrees with plan. - weaning down Vapotherm, 25LPM at 50% FiO2 HTN - resumed chlorthalindone, losartan, amlodipine - hold parameters Left arm fracture - s/p casting at the end of April - Will have outpatient follow up with Orthopedic surgery on discharge Hyperactive bladder - c/w Oxybutynin Seasonal allergies - c/w Ranitidine DVT prophylaxis - lovenox 0.5 mg q12h Disposition: - change to inpatient status, as now on vapotherm - admission will span > 2 midnights. DVT ppx: lovenox 0.5 mg q12h. Dispo: PT adria reviewed from 05/22. Patient may need rehab. She is motivated to return home as her granddaughter is home alone. We will ask case management to assist us in this regard. Re-eval by PT to help determine if safe for DC home with services. VS, I&O, 24H, Fishbone Vital Signs/I&O Vital Signs Date Time Temp Pulse Resp B/P (MAP) Pulse Ox O2 Delivery O2 Flow Rate FiO2 05/24/21 14:42 96.9 63 18 94/53 (67) 99 HVNI-Vapotherm 20.0 50 I&O- Last 24 Hours up to 6 AM 05/24/21 05:59 Intake Total 360 ml Balance 360 ml Laboratory Data 24H LABS Laboratory Tests 2 05/24/21 05:59: Immature Granulocyte % (Auto) , Neutrophils (%) (Auto) , Nucleated Red Blood Cells % (auto) 0.0, Neutrophils 71H, Lymphocytes (Manual) 13L, Monocytes (Manual) 13H, Metamyelocytes 1H, Myelocytes 2H, Platelet Estimate NORMAL, Anion Gap 8, Glomerular Filtration Rate 40.8L, Calcium Level 8.3L, Magnesium Level 1.9 CBC/BMP Laboratory Tests 05/24/21 05:59 Microbiology Microbiology 05/18/21 Respiratory Virus Panel (PCR) ([facility]HIJEET) - Final, Complete SARS-CoV-2 (COVID 19) DIANA LLANOS MD May 24, 2021 14:56
[2021-05-24] MEDS: LOSARTAN 25 MG TAB PO SCH (19:45)
[2021-05-25] MEDS: ENOXAPARIN 60MG/0.6ML SYRINGE (J1650 PER 10MG) SC SCH ×2 (04:39→17:50)
[2021-05-25 04:56] VITALS: BP 109/61
[2021-05-25] MEDS: amLODIPine 5 MG TAB PO SCH (09:00)
[2021-05-25] MEDS: dexameTHASONE 4 MG/ML 1ML VIAL (J1100 PER 1MG) IV SCH (09:06)
[2021-05-25] MEDS: OMEPRAZOLE 20 MG CAP PO SCH (09:06)
[2021-05-25] MEDS: guaiFENesin ER 600 MG TAB PO SCH ×2 (09:06→21:31)
[2021-05-25] MEDS: oxyBUTYnin *DITROPAN XL* 5 MG TABCR PO SCH (09:06)
[2021-05-25] MEDS: NYSTATIN 100,000 UNITS/GM TOPICAL PWD 15 GM TOP SCH ×2 (09:07→21:31)
[2021-05-25] MEDS: CHLORTHALIDONE 25 MG TAB PO SCH (09:07)
[2021-05-25] MEDS: BARICITINIB 2MG TABLET (OLUMIANT) FOR EUA PO SCH (11:24)
--- NOTE | 2021-05-25 11:55 | IPNPDOC ---
Date Seen The patient was seen on 05/25/21. Progress Note SUBJECTIVE: Patient was seen and examined at bedside. Respirations are doing better she is off Vapotherm and is now transitioned to high flow cannula at 8 L/min. She is saturating at 94%. Patient denies any chest pain palpitations nausea vomiting diarrhea. Physically she remains deconditioned. Physical therapy recommending rehab prior to discharge. OBJECTIVE PHYSICAL EXAMINATION: VITAL SIGNS: please see below General: NAD, comfortable HEENT: PERRLA, EOMI, sclerae clear Neck: supple, normal ROM, no JVD Respiratory: fair air entry bilaterally, no crackles, no wheeze CVS: RRR, normal S1, S2, no murmurs Abdo: soft, no masses, no hepatosplenomegaly, BS+, no rebound tenderness Extremities: 1+ nonpitting edema no cyanosis. Cap refill less than 2 seconds MSK: no joint deformities, normal ROM Neuro: no focal neuro deficits, moving all 4 extremities, CN2-12 intact. Strength 5/5 in all 4 extremities. No nystagmus. Psych: calm, cooperative, AAO x 3 LABORATORY DATA, IMAGING STUDIES, MICROBIOLOGY: Please see below. DVT prophylaxis ordered?: Heparin has been switched to weightbase prophylactic dosing of Lovenox per Covid guidelines to 0.5 mg/kg every 12. ASSESSMENT AND PLAN: 70-year-old female with a PMHx of HTN, CKD3 (Baseline Cr of 1.6), Hyperactive bladder, Seasonal allergies, who presented to the emergency room by ambulance after she was reported to have a syncopal episode. She was found to have COVID-19. Presently on vaportherm. PROBLEMS: TRINA on CKD3 - Cr at baseline 1.37. - resumed chlorthalidone 25 mg PO daily, losartan 25 mg qhs. Amlodipine decreased to 5 mg PO daily. Reported syncope - likely 2/2 orthostatic hypotension - 2/2 viral illness - ordered orthostatic vital signs., - 2D echo pending. - no events on telemetry COVID19 - Patient reports a nonproductive cough and myalgia - Has not been vaccinated - Patient has received Levofloxacin / Dexamethasone / Albuterol in the ER - Remdesivir (Day #7), Dexamethasone 6 mg IV (Day #7) - Baricitinib (Day #6). D/w Dr. Medina of pulmonology, agrees with plan. - weaned off vapotherm. Now on HF NC at 8L/min saturating 94%. HTN - resumed chlorthalindone, losartan, amlodipine - hold parameters Left arm fracture - s/p casting at the end of April - Will have outpatient follow up with Orthopedic surgery on discharge Hyperactive bladder - c/w Oxybutynin Seasonal allergies - c/w Ranitidine DVT prophylaxis - lovenox 0.5 mg q12h Disposition: - change to inpatient status, as now on vapotherm - admission will span > 2 midnights. DVT ppx: lovenox 0.5 mg q12h. Dispo: PT ambreenres reviewed from 05/22. Patient may need rehab. Patient wishes to return home as soon as possible, as her 15 year old granddonna is at home, currently in quarantine from COVID-19. Her father works two jobs and is home late typically. I spoke to PFS Kyle Stallings, as asked for help in assisting patient in this matter. VS, I&O, 24H, Fishbone Vital Signs/I&O Vital Signs Date Time Temp Pulse Resp B/P (MAP) Pulse Ox O2 Delivery O2 Flow Rate FiO2 05/25/21 09:00 74 97/50 05/25/21 04:56 97.1 20 94 High Flow Cannula 8.0 05/24/21 21:00 55 I&O- Last 24 Hours up to 6 AM 05/25/21 06:00 Intake Total 360 ml Output Total 200 ml Balance 160 ml Laboratory Data Microbiology Microbiology 05/18/21 Respiratory Virus Panel (PCR) ([facility]HIJEET) - Final, Complete SARS-CoV-2 (COVID 19) DIANA LLANOS MD May 25, 2021 11:55
[2021-05-25 13:59] LABS: HEMATOCRIT 35.3 % (36.0-47.0); HEMOGLOBIN 11.2 g/dl (12.0-15.5); MEAN CORPUSCULAR HGB CONC 31.7 g/dl (32.0-36.5); MEAN CORPUSCULAR VOLUME 85.1 fl (80.0-96.0); PLATELET COUNT, AUTOMATED 433 10^3/uL (150-450); RED BLOOD COUNT 4.15 10^6/uL (4.00-5.40); WHITE BLOOD COUNT 23.8 10^3/uL (4.0-10.0)
[2021-05-25 14:00] VITALS: BP 94/55
[2021-05-25 14:13] LABS: INR 1.06; PROTHROMBIN TIME 14.2 SECONDS (12.7-14.5)
[2021-05-25 14:14] LABS: PARTIAL THROMBOPLASTIN TIME 36.7 SECONDS (25.9-37.0)
[2021-05-25 14:17] LABS: D-DIMER QUANT 3529.77 ng/ml (<500)
[2021-05-25 14:27] LABS: ATYPICAL LYMPH 1 % (0-5); LYMPHOCYTES 1 % (16-44); METAMYELOCYTES 5 % (0-0); MONOCYTES 2 % (0-5); NEUTROPHILS 90 % (28-66); PLATELET ESTIMATE NORMAL (NORMAL)
[2021-05-25 14:42] LABS: C REACTIVE PROTEIN QUANTITATIV 0.39 MG/DL (0.00-0.30); CALCIUM LEVEL 8.4 MG/DL (8.8-10.2); CREATININE FOR GFR 1.53 MG/DL (0.55-1.30); GLOMERULAR FILTRATION RATE 35.9 (>45); POTASSIUM SERUM 4.5 MEQ/L (3.5-5.1); TROPONIN I 0.03 NG/ML (< 0.10)
[2021-05-25] MEDS: LOSARTAN 25 MG TAB PO SCH (21:00)
[2021-05-26] MEDS: ENOXAPARIN 60MG/0.6ML SYRINGE (J1650 PER 10MG) SC SCH ×2 (05:56→11:29)
[2021-05-26 06:00] VITALS: BP 101/55
[2021-05-26] MEDS: amLODIPine 5 MG TAB PO SCH (09:00)
[2021-05-26 10:55] LABS: HEMATOCRIT 35.3 % (36.0-47.0); HEMOGLOBIN 10.8 g/dl (12.0-15.5); MEAN CORPUSCULAR HEMOGLOBIN 27.3 pg (27.0-33.0); MEAN CORPUSCULAR HGB CONC 30.6 g/dl (32.0-36.5); MEAN CORPUSCULAR VOLUME 89.4 fl (80.0-96.0); PLATELET COUNT, AUTOMATED 336 10^3/uL (150-450); RED BLOOD COUNT 3.95 10^6/uL (4.00-5.40); WHITE BLOOD COUNT 20.4 10^3/uL (4.0-10.0)
[2021-05-26 11:19] LABS: CALCIUM LEVEL 8.4 MG/DL (8.8-10.2); CREATININE FOR GFR 1.36 MG/DL (0.55-1.30); GLOMERULAR FILTRATION RATE 41.2 (>45); MAGNESIUM LEVEL 1.9 MG/DL (1.8-2.4); POTASSIUM SERUM 4.1 MEQ/L (3.5-5.1)
[2021-05-26] MEDS: NYSTATIN 100,000 UNITS/GM TOPICAL PWD 15 GM TOP SCH ×2 (11:28→20:22)
[2021-05-26] MEDS: guaiFENesin ER 600 MG TAB PO SCH ×2 (11:29→20:22)
[2021-05-26] MEDS: dexameTHASONE 4 MG/ML 1ML VIAL (J1100 PER 1MG) IV SCH (11:29)
[2021-05-26] MEDS: BARICITINIB 2MG TABLET (OLUMIANT) FOR EUA PO SCH (11:30)
[2021-05-26] MEDS: CHLORTHALIDONE 25 MG TAB PO SCH (11:30)
[2021-05-26] MEDS: OMEPRAZOLE 20 MG CAP PO SCH (11:30)
[2021-05-26] MEDS: oxyBUTYnin *DITROPAN XL* 5 MG TABCR PO SCH (11:32)
[2021-05-26 14:00] VITALS: BP 102/52
[2021-05-26 16:24] VITALS: BP 105/78
[2021-05-26 16:25] VITALS: BP 101/71
[2021-05-26 16:27] VITALS: BP 102/74
--- NOTE | 2021-05-26 18:20 | IPNPDOC ---
Text Note Date of Service The patient was seen on 05/26/21. NOTE Subjective: Patient stated that she feels better today, but she continues to have high oxygen requirements up to 10 L via nasal cannula. Objective: GENERAL APPEARANCE: NAD HEENT: no scleral icterus, no JVD, EOMI CARDIOVASCULAR: S1S2 LUNGS: Diminished lung sounds bilaterally ABDOMEN: soft & not tender w palpation MUSCULOSKELETAL: no cyanosis, +1 lower extremity swelling bilaterally INTEGUMENT: no generalized pallor NEUROLOGICAL: cranial nerve function from 2-12 intact, follows commands, speech not dysarthric Assessment and plan 70-year-old female with a PMHx of HTN, CKD3 (Baseline Cr of 1.6), Hyperactive bladder, Seasonal allergies, who presented to the emergency room by ambulance after she was reported to have a syncopal episode. She was found to have COVID-19 Acute hypoxemic respiratory failure/ARDS Secondary COVID-19 Patient continues to have high oxygen requirements I will check BNP and procalcitonin Syncope Vasovagal Patient received IV fluid Telemetry shows sinus rhythm COVID-19 pneumonia Patient completed course of remdesivir Continue with dexamethasone day 8 and baricitinib day 7 Hypertension Blood pressure under control Continue home meds I stopped chlorthalidone due to hypotension in the morning TRINA Improved Continue to monitor Left arm fracture - s/p casting at the end of April - Will have outpatient follow up with Orthopedic surgery on discharge Deconditioning PT/OT Most likely she will need rehab after discharge Hyperactive bladder - c/w Oxybutynin Seasonal allergies - c/w Ranitidine DVT prophylaxis - lovenox 0.5 mg q12h VS,Fishbone, I+O VS, Fishbone, I+O Laboratory Tests 05/26/21 10:31 Vital Signs Date Time Temp Pulse Resp B/P (MAP) Pulse Ox O2 Delivery O2 Flow Rate FiO2 05/26/21 16:57 High Flow Cannula 13.0 05/26/21 16:27 102/74 (83) 05/26/21 14:00 95.8 85 18 91 05/24/21 21:00 55 I&O- Last 24 Hours up to 6 AM 05/26/21 06:00 Intake Total 360 ml Output Total 100 ml Balance 260 ml KARMEN IVERSON DO May 26, 2021 18:19
[2021-05-26] MEDS: LOSARTAN 25 MG TAB PO SCH (20:21)
[2021-05-26 22:00] VITALS: BP 103/60
[2021-05-27 05:26] VITALS: BP 105/66
[2021-05-27] MEDS: ENOXAPARIN 60MG/0.6ML SYRINGE (J1650 PER 10MG) SC SCH ×2 (06:22→17:26)
[2021-05-27 07:17] LABS: HEMATOCRIT 36.7 % (36.0-47.0); HEMOGLOBIN 11.8 g/dl (12.0-15.5); MEAN CORPUSCULAR HEMOGLOBIN 27.1 pg (27.0-33.0); MEAN CORPUSCULAR HGB CONC 32.2 g/dl (32.0-36.5); MEAN CORPUSCULAR VOLUME 84.4 fl (80.0-96.0); PLATELET COUNT, AUTOMATED 252 10^3/uL (150-450); RED BLOOD COUNT 4.35 10^6/uL (4.00-5.40)
[2021-05-27 09:00] VITALS: BP 103/59
[2021-05-27] MEDS: amLODIPine 5 MG TAB PO SCH (09:00)
[2021-05-27] MEDS: NYSTATIN 100,000 UNITS/GM TOPICAL PWD 15 GM TOP SCH ×2 (09:00→20:33)
[2021-05-27] MEDS ORDERED: FUROSEMIDE 40MG/4ML VIAL (J1940) IV SCH (09:00)
[2021-05-27] MEDS: OMEPRAZOLE 20 MG CAP PO SCH (09:46)
[2021-05-27] MEDS: oxyBUTYnin *DITROPAN XL* 5 MG TABCR PO SCH (09:47)
[2021-05-27] MEDS: BARICITINIB 2MG TABLET (OLUMIANT) FOR EUA PO SCH (09:47)
[2021-05-27] MEDS: dexameTHASONE 4 MG/ML 1ML VIAL (J1100 PER 1MG) IV SCH (09:47)
[2021-05-27] MEDS: guaiFENesin ER 600 MG TAB PO SCH ×2 (09:47→20:30)
[2021-05-27 12:51] LABS: CALCIUM LEVEL 8.5 MG/DL (8.8-10.2); CREATININE FOR GFR 1.38 MG/DL (0.55-1.30); GLOMERULAR FILTRATION RATE 40.5 (>45); POTASSIUM SERUM 4.1 MEQ/L (3.5-5.1)
--- NOTE | 2021-05-27 13:25 | IPNPDOC ---
Text Note Date of Service The patient was seen on 05/27/21. NOTE Subjective: Patient stated that she feels better today, but she continues to have high oxygen requirements up to 8 L via nasal cannula. Objective: GENERAL APPEARANCE: NAD HEENT: no scleral icterus, no JVD, EOMI CARDIOVASCULAR: S1S2 LUNGS: Diminished lung sounds bilaterally ABDOMEN: soft & not tender w palpation MUSCULOSKELETAL: no cyanosis, +1 lower extremity swelling bilaterally INTEGUMENT: no generalized pallor NEUROLOGICAL: cranial nerve function from 2-12 intact, follows commands, speech not dysarthric Assessment and plan 70-year-old female with a PMHx of HTN, CKD3 (Baseline Cr of 1.6), Hyperactive bladder, Seasonal allergies, who presented to the emergency room by ambulance after she was reported to have a syncopal episode. She was found to have COVID-19 Acute hypoxemic respiratory failure/ARDS Secondary COVID-19 Patient continues to have high oxygen requirements BNP elevated to 3305 and procalcitonin negative Acute diastolic CHF Most likely secondary to volume overload Lasix 40 mg IV daily I's and O's Fluid restriction to 1500 cc Syncope Vasovagal Patient received IV fluid Telemetry shows sinus rhythm COVID-19 pneumonia Patient completed course of remdesivir Continue with dexamethasone day 9 and baricitinib day 8 Hypertension Blood pressure under control Continue home meds I stopped chlorthalidone due to hypotension in the morning TRINA Improved Continue to monitor Left arm fracture - s/p casting at the end of April - Will have outpatient follow up with Orthopedic surgery on discharge Deconditioning PT/OT Most likely she will need rehab after discharge Hyperactive bladder - c/w Oxybutynin Seasonal allergies - c/w Ranitidine DVT prophylaxis - lovenox 0.5 mg q12h VS,Fishbone, I+O VS, Fishbone, I+O Laboratory Tests 05/27/21 07:06 05/27/21 12:07 Vital Signs Date Time Temp Pulse Resp B/P (MAP) Pulse Ox O2 Delivery O2 Flow Rate FiO2 05/27/21 12:07 8.0 05/27/21 09:00 103/59 05/27/21 06:00 High Flow Cannula 05/27/21 05:26 96.6 70 18 99 05/24/21 21:00 55 I&O- Last 24 Hours up to 6 AM 05/27/21 06:00 Intake Total 780 ml Balance 780 ml KARMEN IVERSON DO May 27, 2021 13:25
[2021-05-27 14:00] VITALS: BP 105/57
[2021-05-27] MEDS: FUROSEMIDE 40MG/4ML VIAL (J1940) IV SCH (20:32)
[2021-05-27 22:00] VITALS: BP 97/56
[2021-05-28 02:00] VITALS: BP 100/58
[2021-05-28 04:49] VITALS: BP 105/65
[2021-05-28] MEDS: ENOXAPARIN 60MG/0.6ML SYRINGE (J1650 PER 10MG) SC SCH ×2 (07:24→17:17)
[2021-05-28] MEDS: guaiFENesin ER 600 MG TAB PO SCH ×2 (08:48→19:57)
[2021-05-28] MEDS: OMEPRAZOLE 20 MG CAP PO SCH (08:48)
[2021-05-28] MEDS: FUROSEMIDE 40MG/4ML VIAL (J1940) IV SCH (08:49)
[2021-05-28] MEDS: BARICITINIB 2MG TABLET (OLUMIANT) FOR EUA PO SCH (08:49)
[2021-05-28] MEDS: predniSONE 20 MG TAB PO SCH (08:49)
[2021-05-28] MEDS: oxyBUTYnin *DITROPAN XL* 5 MG TABCR PO SCH (08:49)
[2021-05-28] MEDS: NYSTATIN 100,000 UNITS/GM TOPICAL PWD 15 GM TOP SCH ×2 (08:50→19:58)
[2021-05-28 10:57] LABS: HEMOGLOBIN 10.9 g/dl (12.0-15.5); MEAN CORPUSCULAR HEMOGLOBIN 27.7 pg (27.0-33.0); MEAN CORPUSCULAR HGB CONC 32.1 g/dl (32.0-36.5); MEAN CORPUSCULAR VOLUME 86.3 fl (80.0-96.0); PLATELET COUNT, AUTOMATED 479 10^3/uL (150-450); RED BLOOD COUNT 3.94 10^6/uL (4.00-5.40); WHITE BLOOD COUNT 23.9 10^3/uL (4.0-10.0)
[2021-05-28 11:17] LABS: CALCIUM LEVEL 8.7 MG/DL (8.8-10.2); CREATININE FOR GFR 1.54 MG/DL (0.55-1.30); GLOMERULAR FILTRATION RATE 35.7 (>45); MAGNESIUM LEVEL 1.8 MG/DL (1.8-2.4); POTASSIUM SERUM 3.9 MEQ/L (3.5-5.1)
--- NOTE | 2021-05-28 13:13 | IPNPDOC ---
Text Note Date of Service The patient was seen on 05/28/21. NOTE Subjective: Patient continues to have high oxygen requirements up to 8 L via nasal cannula. Patient developed dizziness during physical therapy today Objective: GENERAL APPEARANCE: NAD HEENT: no scleral icterus, no JVD, EOMI CARDIOVASCULAR: S1S2 LUNGS: Diminished lung sounds bilaterally ABDOMEN: soft & not tender w palpation MUSCULOSKELETAL: no cyanosis, +1 lower extremity swelling bilaterally INTEGUMENT: no generalized pallor NEUROLOGICAL: cranial nerve function from 2-12 intact, follows commands, speech not dysarthric Assessment and plan 70-year-old female with a PMHx of HTN, CKD3 (Baseline Cr of 1.6), Hyperactive bladder, Seasonal allergies, who presented to the emergency room by ambulance after she was reported to have a syncopal episode. She was found to have COVID-19 Acute hypoxemic respiratory failure/ARDS Secondary COVID-19 Patient continues to have high oxygen requirements up to 8 L via nasal cannula BNP elevated to 3305 and procalcitonin negative Acute diastolic CHF Most likely secondary to volume overload Lasix 40 mg IV daily I's and O's Fluid restriction to 1500 cc Syncope/dizziness Vasovagal Patient received IV fluid Telemetry shows sinus rhythm I stopped oxybutynin COVID-19 pneumonia Patient completed course of remdesivir Stopped dexamethasone, start prednisone taper and baricitinib day 9 Hypertension Blood pressure under control Continue home meds I stopped chlorthalidone due to hypotension in the morning TRINA Improved Continue to monitor Kidney function at baseline Left arm fracture - s/p casting at the end of April - Will have outpatient follow up with Orthopedic surgery on discharge Deconditioning PT/OT Most likely she will need rehab after discharge Hyperactive bladder Stopped oxybutynin due to history syncope and dizziness Seasonal allergies - c/w Ranitidine DVT prophylaxis - lovenox 0.5 mg q12h VS,Fishbone, I+O VS, Fishbone, I+O Laboratory Tests 05/28/21 10:23 Vital Signs Date Time Temp Pulse Resp B/P (MAP) Pulse Ox O2 Delivery O2 Flow Rate FiO2 05/28/21 13:00 99 Nasal Cannula 6.0 05/28/21 04:49 97.0 82 20 105/65 (78) 05/24/21 21:00 55 I&O- Last 24 Hours up to 6 AM 05/28/21 06:00 Intake Total 1200 ml Output Total 525 ml Balance 675 ml KARMEN IVERSON DO May 28, 2021 13:13
[2021-05-28 15:30] VITALS: BP 106/61
[2021-05-28 20:00] VITALS: BP 101/60
[2021-05-28 22:12] VITALS: BP 101/60
[2021-05-29] VITALS (9 sets, daily range): BP systolic 70–96; BP diastolic 48–62
[2021-05-29] MEDS: ENOXAPARIN 60MG/0.6ML SYRINGE (J1650 PER 10MG) SC SCH ×2 (05:45→17:57)
[2021-05-29] MEDS ORDERED: NS 500 ML IV ONE ×3 (06:20→21:35)
[2021-05-29 07:31] LABS: HEMATOCRIT 31.7 % (36.0-47.0); HEMOGLOBIN 9.9 g/dl (12.0-15.5); MEAN CORPUSCULAR HEMOGLOBIN 27.3 pg (27.0-33.0); MEAN CORPUSCULAR HGB CONC 31.2 g/dl (32.0-36.5); MEAN CORPUSCULAR VOLUME 87.6 fl (80.0-96.0); PLATELET COUNT, AUTOMATED 382 10^3/uL (150-450); RED BLOOD COUNT 3.62 10^6/uL (4.00-5.40); WHITE BLOOD COUNT 20.1 10^3/uL (4.0-10.0)
[2021-05-29 07:51] LABS: CALCIUM LEVEL 7.9 MG/DL (8.8-10.2); CREATININE FOR GFR 1.58 MG/DL (0.55-1.30); GLOMERULAR FILTRATION RATE 34.6 (>45); POTASSIUM SERUM 4.4 MEQ/L (3.5-5.1)
[2021-05-29] MEDS: BARICITINIB 2MG TABLET (OLUMIANT) FOR EUA PO SCH (08:43)
[2021-05-29] MEDS: NYSTATIN 100,000 UNITS/GM TOPICAL PWD 15 GM TOP SCH ×2 (08:44→20:16)
[2021-05-29] MEDS: predniSONE 20 MG TAB PO SCH (08:44)
[2021-05-29] MEDS: OMEPRAZOLE 20 MG CAP PO SCH (08:44)
[2021-05-29] MEDS: FUROSEMIDE 40MG/4ML VIAL (J1940) IV SCH ×2 (08:44→09:00)
[2021-05-29] MEDS: guaiFENesin ER 600 MG TAB PO SCH ×2 (08:44→20:16)
[2021-05-29] MEDS: POLYSPORIN TOPICAL OINTMENT 15GM TOP SCH ×2 (14:35→20:16)
--- NOTE | 2021-05-29 17:56 | IPNPDOC ---
Text Note Date of Service The patient was seen on 05/29/21. NOTE Subjective: Patient high oxygen requirements significantly improved to 3 L. Patient developed dizziness and hypotension in the morning Objective: GENERAL APPEARANCE: NAD HEENT: no scleral icterus, no JVD, EOMI CARDIOVASCULAR: S1S2 LUNGS: Diminished lung sounds bilaterally ABDOMEN: soft & not tender w palpation MUSCULOSKELETAL: no cyanosis, +1 lower extremity swelling bilaterally INTEGUMENT: no generalized pallor NEUROLOGICAL: cranial nerve function from 2-12 intact, follows commands, speech not dysarthric Assessment and plan 70-year-old female with a PMHx of HTN, CKD3 (Baseline Cr of 1.6), Hyperactive bladder, Seasonal allergies, who presented to the emergency room by ambulance after she was reported to have a syncopal episode. She was found to have COVID-19 Acute hypoxemic respiratory failure/ARDS Secondary COVID-19 Patient breathing status significantly improved. She currently on the 3 L of oxygen Acute diastolic CHF Most likely secondary to volume overload Patient developed hypotension in the morning of 75/40. I discontinued fluid restriction and IV Lasix, subsequently blood pressure improved to 96/60. Patient could develop hypotension secondary to adrenal insufficiency I transferred patient from dexamethasone to prednisone 40 mg daily. We will give her a trial of hydrocortisone 100 mg once Syncope/dizziness Vasovagal Patient received IV fluid Telemetry shows sinus rhythm I stopped oxybutynin COVID-19 pneumonia Patient completed course of remdesivir Stopped dexamethasone, start prednisone taper and baricitinib day 10 Hypertension Blood pressure under control Continue home meds I stopped chlorthalidone due to hypotension in the morning TRINA Improved Continue to monitor Kidney function at baseline Left arm fracture - s/p casting at the end of April - Will have outpatient follow up with Orthopedic surgery on discharge Deconditioning PT/OT Most likely she will need rehab after discharge Hyperactive bladder Stopped oxybutynin due to history syncope and dizziness Seasonal allergies - c/w Ranitidine DVT prophylaxis - lovenox 0.5 mg q12h VS,Fishbone, I+O VS, Fishbone, I+O Laboratory Tests 05/29/21 06:54 Vital Signs Date Time Temp Pulse Resp B/P (MAP) Pulse Ox O2 Delivery O2 Flow Rate FiO2 05/29/21 14:00 98.2 114 18 96/55 (69) 95 Nasal Cannula 3.0 05/24/21 21:00 55 I&O- Last 24 Hours up to 6 AM 05/29/21 06:00 Intake Total 960 ml Output Total 1300 ml Balance -340 ml KARMEN IVERSON DO May 29, 2021 17:56
[2021-05-29] MEDS ORDERED: HYDROCORTISONE 100 MG/2 ML VIAL (J1720 PER 1) IV ONE (18:00)
[2021-05-30 03:23] VITALS: BP 102/58
[2021-05-30] MEDS: ENOXAPARIN 60MG/0.6ML SYRINGE (J1650 PER 10MG) SC SCH (07:09)
[2021-05-30 07:54] LABS: HEMATOCRIT 24.2 % (36.0-47.0); MEAN CORPUSCULAR HEMOGLOBIN 27.4 pg (27.0-33.0); MEAN CORPUSCULAR HGB CONC 32.2 g/dl (32.0-36.5); MEAN CORPUSCULAR VOLUME 84.9 fl (80.0-96.0); PLATELET COUNT, AUTOMATED 345 10^3/uL (150-450); RED BLOOD COUNT 2.85 10^6/uL (4.00-5.40); WHITE BLOOD COUNT 23.4 10^3/uL (4.0-10.0)
[2021-05-30 08:05] LABS: HEMOGLOBIN 7.8 g/dl (12.0-15.5)
[2021-05-30] MEDS: OMEPRAZOLE 20 MG CAP PO SCH (08:18)
[2021-05-30] MEDS: BARICITINIB 2MG TABLET (OLUMIANT) FOR EUA PO SCH (08:18)
[2021-05-30] MEDS: predniSONE 20 MG TAB PO SCH (08:18)
[2021-05-30] MEDS: guaiFENesin ER 600 MG TAB PO SCH (08:18)
[2021-05-30] MEDS: POLYSPORIN TOPICAL OINTMENT 15GM TOP SCH (08:19)
[2021-05-30] MEDS: NYSTATIN 100,000 UNITS/GM TOPICAL PWD 15 GM TOP SCH (08:19)
[2021-05-30 08:20] LABS: CREATININE FOR GFR 1.49 MG/DL (0.55-1.30); MAGNESIUM LEVEL 1.9 MG/DL (1.8-2.4)
[2021-05-30] MEDS ORDERED: PRED10TA2 PO ×2 (11:03→17:05)
--- NOTE | 2021-05-30 16:02 | DS.PDOC ---
Discharge Summary General Date of Admission May 20, 2021 at 11:50 Date of Discharge 05/30/21 Discharge Summary PROCEDURES PERFORMED DURING STAY: [None]. ADMITTING DIAGNOSES: Acute hypoxemic respiratory failure/ARDS Acute diastolic CHF Syncope/dizziness COVID-19 pneumonia Hypertension ANANTH Left arm fracture Deconditioning Hyperactive bladder Seasonal allergies DISCHARGE DIAGNOSES: Acute hypoxemic respiratory failure/ARDS Acute diastolic CHF Syncope/dizziness COVID-19 pneumonia Hypertension ANANTH Left arm fracture Deconditioning Hyperactive bladder Seasonal allergies COMPLICATIONS/CHIEF COMPLAINT: Ananth, Covid-19. HISTORY OF PRESENT ILLNESS: 70-year-old female with a PMHx of HTN, CKD3 (Baseline Cr of 1.6), Hyperactive bladder, Seasonal allergies, who presented to the emergency room by ambulance after she was reported to have a syncopal episode. She was found to have COVID-19 HOSPITAL COURSE: During her hospital stay the following issue addressed Patient developed acute hypoxemic respiratory failure/ARDS Secondary COVID-19. Patient received course of treatment with remdesivir and, baricitinib, dexamethasone Patient breathing status significantly improved. She currently on the 3 L of oxygen Also patient developed acute diastolic CHF Most likely secondary to volume overload Patient received a course of diuretics. Currently resolved and improved Syncope/dizziness Vasovagal secondary to dehydration and COVID-19 pneumonia COVID-19 pneumonia Patient will be discharged with prednisone taper Left arm fracture - s/p casting at the end of April - Will have outpatient follow up with Orthopedic surgery on discharge Deconditioning PT/OT Patient declined rehab after discharge DISCHARGE MEDICATIONS: Please see below. ALLERGIES: Please see below. PHYSICAL EXAMINATION ON DISCHARGE: VITAL SIGNS: Please see below. GENERAL APPEARANCE: NAD HEENT: no scleral icterus, no JVD, EOMI CARDIOVASCULAR: S1S2 LUNGS: Diminished lung sounds bilaterally ABDOMEN: soft & not tender w palpation MUSCULOSKELETAL: no cyanosis, +1 lower extremity swelling bilaterally INTEGUMENT: no generalized pallor NEUROLOGICAL: cranial nerve function from 2-12 intact, follows commands, speech not dysarthric LABORATORY DATA: Please see below. IMAGING: COMPARISON: 05/18/2021 TECHNIQUE: Portable AP view of the chest FINDINGS: Diffuse bilateral airspace disease appears increased from prior examination specifically involving right mid to lower lung zone and left base. Cardiac silhouette is stable. No definite effusion. No pneumothorax. Skeletal structures are stable. IMPRESSION: Increased opacities noted bilaterally. PROGNOSIS: Fair ACTIVITY: [As tolerated]. DIET: Cardiac DISPOSITION: Home, Self-Care. ITEMS TO FOLLOWUP ON ON OUTPATIENT: Follow-up with PCP in 3 to 5 days DISCHARGE CONDITION: [Stable]. TIME SPENT ON DISCHARGE: 50 minutes. Vital Signs/I&Os Vital Signs Date Time Temp Pulse Resp B/P (MAP) Pulse Ox O2 Delivery O2 Flow Rate FiO2 05/30/21 08:19 3.0 05/30/21 06:35 97.0 78 18 96 Nasal Cannula 05/30/21 03:23 102/58 (73) 05/24/21 21:00 55 I&O- Last 24 Hours up to 6 AM 05/30/21 06:00 Intake Total 840 ml Balance 840 ml Laboratory Data Labs 24H Laboratory Tests 2 05/30/21 07:14: Nucleated Red Blood Cells % (auto) 0.0, Anion Gap 8, Glomerular Filtration Rate 37.0L, Calcium Level 8.0L, Magnesium Level 1.9 CBC/BMP Laboratory Tests 05/30/21 07:14 Discharge Medications Scheduled Ergocalciferol (Vitamin D2) (Vitamin D2) 50,000 Units Cap, 50,000 UNITS PO 1XWK, (Reported) ON WEDNESDAYS Omeprazole (Omeprazole) 20 Mg Capsule.dr, 20 MG PO DAILY, (Reported) Oxybutynin Chloride (Oxybutynin Chloride ER) 10 Mg Tab, 10 MG PO DAILY, (Reported) Prednisone (Prednisone) 10 Mg Tablet, 10 MG PO TAPER Take 4 tabs daily x 3 days, then 3 tabs daily x 3 days, then 2 tabs daily x 3 days, then 1 tab daily x 3 days and stop Allergies Coded Allergies: cephalexin (Verified Allergy, Intermediate, hives, 11/27/18) KARMEN IVERSON DO May 30, 2021 16:02
== END 2021-05-30 12:33 | disposition home or self-care (01) | DRG 177 ==
LOC: M ED 14:21 → M ED INP 14:22 → M 4MAIN 05-19 02:56 → OBSVTOIN 05-20 11:50
PROVIDERS: ADMIT Internal Medicine; ATTEND Internal Medicine
PROC: 3E0333Z Introduction of Anti-inflammatory into Peripheral Vein, Percutaneous Approach (ICD-10-PCS; principal; 2021-05-18)
PROC: XW033E5 Introduction of Remdesivir Anti-infective into Peripheral Vein, Percutaneous Approach, New Technology Group 5 (ICD-10-PCS; 2021-05-19)
DX: U07.1 COVID-19 (principal); J96.01 Acute respiratory failure with hypoxia; J12.82 Pneumonia due to coronavirus disease 2019; I50.31 Acute diastolic (congestive) heart failure; N17.9 Acute kidney failure, unspecified; I13.0 Hypertensive heart and chronic kidney disease with heart failure and stage 1 through stage 4 chronic kidney disease, or unspecified chronic kidney disease; N18.30 Chronic kidney disease, stage 3 unspecified; Z90.49 Acquired absence of other specified parts of digestive tract; Z90.79 Acquired absence of other genital organ(s); S42.302D Unspecified fracture of shaft of humerus, left arm, subsequent encounter for fracture with routine healing; X58.XXXD Exposure to other specified factors, subsequent encounter; Z79.899 Other long term (current) drug therapy; Z88.1 Allergy status to other antibiotic agents; I95.1 Orthostatic hypotension; Z72.3 Lack of physical exercise

== ENCOUNTER 2021-05-30 15:12 | Inpatient (IN) | payer MEDICARE ==
[~2021-05-30] VITALS: Ht 149.9 cm; Wt 102.4 kg
[~2021-05-30 15:12] MED LIST changes: +CHLO125TA PO; +ERGO500029 PO; +FURO20TA2 PO; +LOSA25TA14 PO; +OMEP-218 PO; +PRED10TA2 PO
[2021-05-30] MEDS ORDERED: NS 1,000 ML IV ONE (16:10)
[2021-05-30 16:14] LABS: VENOUS BASE EXCESS -6.7 (-2.0-2.0); VENOUS HCO3 18.4 MEQ/L (23.0-27.0); VENOUS O2 SATURATION 63.6 % (60.0-80.0); VENOUS PARTIAL PRESSURE O2 37.4 mmHg (30.0-50.0); VENOUS PH 7.339 UNITS (7.330-7.430); VENOUS STANDARD HCO3 18.5 MEQ/L; VENOUS TOTAL CO2 19.5 MEQ/L (24.0-28.0)
--- OUTSIDE RECORDS SUMMARY | 2021-05-30 16:14 | CCD ---
Author Author [facility] Organization [facility] Address Unknown Phone Unavailable Care Team Providers Care Manager Building Name Role Phone Ema Patel Unavailable PROBLEMS Type Condition ICD9-CM Code [id number] Code Onset Dates Condition S tatus W/U Status Risk SNOMED Code Notes Problem Lupus erythematosus, unspecified form L93.0 Ac tive confirmed 644174630 Problem Anemia, unspecified type D64.9 Active confirmed 859872280 Problem Non-pressure chronic ulcer o f other part of right lower leg with fat layer exposed L97.812 Active confirmed 829102015 Problem History of systemic lupus erythematosus M32.9 Active confirmed 527434285 Problem Inflammatory arthritis M19.90 Active confirmed 2087055 Problem Chronic venous hypertension (idiopathic) with ulcer of right lower extremity I87.311 Active confirmed 315257876 Problem Primary osteoarthritis involving multiple joints M 89.49 Active confirmed 172711755 Problem Sjogren's syndrome with keratoconjunctivitis sicca M35.01 Active confirmed 17237489 Problem 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 Code:[address]-38) Hives Drug Allergy Active ENCOUNTERS from 1950 to 2021-04-08 Encounter Location Date Provider Diagnosis [facility] Rheumatology [address] [place] [address] [place] [address] Apr, Ema Patel IMMUNIZATIONS No Information SOCIAL HISTORY Tobacco Use: Social History Observation Description Date Details (start date - stop date) Never Smoker Sex Assigned At : Social History Observation Description Sex Assigned At Unknown Alcohol Screening: Question Answer Notes Did you have a drink containing alcohol in the past year? No Points 0 Interpretation Negative Tobacco Use: Question Answer Notes Are you a: never smoker REASON FOR REFERRAL No Information VITAL SIGNS No information MEDICATIONS Medication SIG (Take, Route, Frequency, Duration) Notes Start Da te End Date Status Chlorthalidone 25 MG 1 tablet in the morning with food Orally Once a day for 30 day(s) Active Exforge 5-160 MG 1 tablet Orally Once a day Not-Taking Oxybutynin Chloride 5 MG 1 tablet Orally Twice a day Not-Taking Drisdol 27937 UNIT 1 capsule Orally weekly Active Mupirocin Calcium 2 % 1 application to affected ar ea Externally every other day as directed Active Omeprazole 20 MG 1 capsule 30 minutes before morning meal Oral Once a day Active Tylenol Extra Strength 500 MG 1 tablet as needed Orally ever y 6 hrs Takes 2 tabs daily Active Oxybutynin Chloride ER 10 MG 1 tablet Orally Once a day Active Hydroxychloroquine 200 mg 1 tablet orally Daily for 30 day(s) Jun, Not-Taking Calcium 600+D 600-400 MG-UNIT 1 tablet Orally Twice a day for 30 day( s) Active Acyclovir 200 MG 1 capsule Orally five times a day as needed Not-Taking Plaquenil 200 MG 1 tab Orally Daily for 90 days Aug, Active Losartan Potassium 25 MG 1 tablet Orally Once a day Active PROCEDURES No Information RESULTS No Results REASON FOR VISIT NS appt 04/01/21 MEDICAL (GENERAL) HISTORY Type Description Date Medical History Systemic Lupus Medical History Sjogren's Syndrome Medical History Essential Primary Hypertension Medical History IBS with diarrhea Medical History Kidney Disease Medical History Arthritis Surgical History 1976 Surgical History 1977 Surgical History Hysterectomy 1979 Surgical History Bilateral Oopherectomy 1999 Surgical History Right Knee Replacement 11/2006 Surgical History Cholecystectomy 03/1991 Hospitalization History childbirth Hospitalization History Surgery related only Goals Section No Information Health Concerns No Information MEDICAL EQUIPMENT No Information MENTAL STATUS No Information FUNCTIONAL STATUS No Information ASSESSMENTS No Information PLAN OF TREATMENT Medication Medication Name Sig Start Date Stop Date Plaquenil 200 MG 1 tab Orally Daily for 90 days Aug, Next Appt Details Provider Name:Ema Patel 2021-06- 10:45:00 AM, [address] [place] [address], , [place], [address], Insurance Providers Payer Name Payer Address Payer Phone Insured Name Patient Relati onship to Insured Coverage Start Date Coverage End Date [facility] [address] [address] [facility] [id number] GALINA GREENWOOD self
--- OUTSIDE RECORDS SUMMARY | 2021-05-30 16:14 | CCD | Continuity of Care Document ---
Author Author Dana HALE PA Organization Unknown Address [address] [place] [address], [address] [place] [address] Phone [phone] Care Team Providers Care Leaf Conditioner Helper Name Role Phone Milagro Fonseca MD [facility] [phone] Problems Active Problems Provider Date Sprain of foot Onset: 05/29/1999 Social History Type Date Description Comments Sex Unknown ETOH Use Denies alcohol use Tobacco Use Start: Unknown Denies Smoking Allergies, Adverse Reactions, Alerts Active Allergies Criticality Reaction | Severity Comments Date Keflex Unable to assess criticality 01/23/2018 Medications Active Medications SIG Qnty Indications Ordering Provide r Date Oxybutynin Chloride ER 10mg Tablets ER 24HR take one tablet by mouth every morning for urinary symptoms 30ta bs Anna Kinney MD 07/12/2016 Exforge 5-160mg Tablets take one tablet by mouth every day 30tabs Tom Londono MD 8 Ranitidine HCL 150mg Tablets 1 by mouth twice a day 180tabs Anna Kinney MD Plaquenil 200mg Tablets 1 tab po bid Unknown Immunizations Description No Information Available Vital Signs Date Vital Result Comment 01/23/2018 11:14am Body Temperature 97.3 F Height 59 inches 4'11" Weight 220.00 lb BMI (Body Mass Index) 44.4 kg/m2 Results Description No Information Available Procedures Date Code Description Status 05/04/2021 40295 X-Ray Forearm Ap & Lateral 2 Vie ws Completed 05/04/2021 05771 X-Ray Elbow Complete Completed Medical Devices Description No Information Available Encounters Description No Information Available Assessments Date Code Description Provider 05/04/2021 S52.225A Nondisplaced transve rse fracture of shaft of left ulna, initial encounter for closed fracture CHACHA Herndon Plan of Treatment Future Appointment(s):* 05/15/2021 10:30 am - CHACHA Herndon at [place] 05/04/2021 - CHACHA Herndon* S52.225A Nondisplaced transverse fracture of shaft of left ulna, initial encounter for closed fracture* New Orders:* Long arm fiberglass cast, Ordered: 05/04/21 * Follow up:* 1 week lt forearm xray thru cast with iid Functional Status Description No Information Available Mental Status Description No Information Available Referrals Refer to Dr Reason for Referral Status Appt Date Jose Enrique Hale Pac DME Sh[facility] Shoulder Immobili zer - Left PER CESS @ [facility] NO AUTH REQUIRED REF # [id number]. LS Created [address] [facility] [address] [place] [address] [phone]
--- OUTSIDE RECORDS SUMMARY | 2021-05-30 16:14 | CCD | Continuity of Care Document ---
Author Author Dana Fonseca M.D. Organization Unknown Address [address] [facility] [address] [place] [address] Phone [phone] Care Team Providers Care Loader Name Role Phone Milagro Fonseca MD [facility] [phone] Josephine Strickland MD [facility] [phone] Jack Kang DPM [facility] [phone] [facility] [employer] [facility] [phone] Problems Active Problems Provider Date Hypertensive chronic kidney disease with stage 1 through stage 4 chronic kidney disease, or unspecified chronic kidney disease Milagro Fonseca M.D. Onset: 01/11/2019 Chronic kidney disease stage 3 Milagro Fonseca M.D. Onset : 01/11/2019 Anemia Milagro Fonseca M.D. Onset: 9 Vitamin D deficiency Milagro Fonseca M.D. Onset: 01/12/20 19 Syncope and collapse Milagro Fonseca M.D. Onset: 01/12/20 19 Stress incontinence (female) (male) Milagro Fonseca M.D. Onset: 01/11/2019 Gastroesophageal reflux disease Kimberlee Wilson t: 01/11/2019 Unspecified osteoarthritis, unspecified site Milagro rodriguez M.D. Onset: 01/11/2019 Peripheral venous insufficiency Kimebrlee Wilson t: 01/11/2019 Morbid obesity Milagro Fonseca M.D. Onset: 9 Systemic lupus erythematosus Milagro Fonseca M.D. Onset: 01/11/2019 Sjogren's syndrome Milagro Fonseca M.D. Onset: 9 Social History Type Date Description Comments Sex Unknown ETOH Use Denies alcohol use Tobacco Use Start: Unknown Patient has never smoked Allergies and adverse reactions Active Allergies Criticality Reaction | Severity Comments Date Keflex Unable to assess criticality Hives 07/24/2018 Medications Active Medications SIG Qnty Indications Ordering Provide r Date Losartan Potassium 25mg Tablets 1 by mouth qhs 90tabs Milagro Fonseca M.D. 09/17/19 [address] 1 by mouth every day 90caps Milagro Fonseca M.D. 08/14/19 21 Tums 500mg Chewtabs 2 po qpm Milagro Fonseca M.D. 08/14/2020 Clotrimazole/Betamethasone Dipropionate 1-0.05% Cream twice a day x 14 d as directed, then as needed Bila teral Axilla 30gm Milagro Fonseca M.D. 04/17/2019 Ferrous Sulfate 324(65Fe) mg Table ts DR 1 by mouth every other day 45tabs Milagro Fonseca M.D. 02/12/2019 Chlorthalidone 25mg Tablets take one tablet by mouth every morning 90tabs Milagro Fonseca M.D. 02/01/2019 Oxybutynin Chloride ER 10mg Tablets ER 24HR 1 by mouth every day prn 90tabs Milagro reynolds M.D. 07/24/2018 Acyclovir 200mg Capsules 1 tab 5 times daily prn Sara Munson FNP 07/24/2018 Mupirocin 2% Ointment Apply Every Other Day X1 To Abd Fold 44gm Milagro Fonseca M.D. 07/24 Drisdol 1.25mg (53956 Ut) Capsules 1 tab every week po Unknown Hydroxychloroquine Sulfate 200mg T ablets 1 by mouth every day Unknown Medications Administered in Office Medication SIG Qnty Indications Ordering Provider Date Immunization Adminstration,1 Vaccine/Tox oid Injection Milagro Fonseca M.D. 09/2019 Immunizations CPT Code Status Date Vaccine Lot # [id number] Given 02/07/2020 Tetanus/Diptheria(Td)Toxoids Preservative Free [id number] U-PneuC Given 05/01/2018 Prevnar 13 33261 Given 07/01/2010 Adacel- Tetanus Diphtheria P ertussis U-Pneum Given 04/15/2010 Pneumococcal,Unspecified 92174 Refused 01/11/2019 Shingrix Zoster Vaccine (HZV), Recombinant, Subunit, Adjuvanted 67819 Refused 01/11/2019 Zoster Vaccine 56720 Refused 07/24/2018 Influenza Virus Vaccine, Quadrivalent (Cciiv4), Derived From Cell Vital Signs Date Vital Result Comment 01/15/2021 10:48am BP Systolic 158 mmHg RT Arm BP Diastolic 82 mmHg RT Arm BP Systolic Recheck 144 mmHg BP Diastolic Recheck 84 mmHg Heart Rate 68 /min Height 58.50 inches 4'10.50" Weight 226.38 lb BMI (Body Mass Index) 46.5 kg/m2 09/17/2020 9:44am BP Systolic 148 mmHg RT Arm BP Diastolic 76 mmHg RT Arm BP Systolic Recheck 130 mmHg BP Diastolic Recheck 86 mmHg Heart Rate 60 /min Height 58.50 inches 4'10.50" Weight 219.00 lb BMI (Body Mass Index) 45.0 kg/m2 Results Test Acquired Date Facility Test Result H/L Range Note CBC With Differential 05/18/2021 [place] [id number] [phone] White Blood Count 9.3 10 Normal 4.0-10.0 Red Blood Count 3.52 10 Low 4.00-5.40 Hemoglobin 9.6 g/dL Low 12.0-15.5 Hematocrit 30.4 % Low 36.0-47.0 Mean Corpuscular Volume 86.4 fl Normal 80.0-96.0 Mean Corpuscular Hemoglobin 27.3 pg Normal 27.0-33.0 Mean Corpuscular HGB Conc 31.6 g/dL Low 32.0-36.5 Red Cell Distribution Width 15.1 % High 11.5-14.5 Platelet Count, Automated 216 10 Normal 150-450 Neutrophils % 90.7 % High 36.0-66.0 Lymph % 4.4 % Low 24.0-44.0 [place] % 4.3 % Normal 2.0-8.0 Eos % 0.0 % Normal 0.0-3.0 Baso % 0.0 % Normal 0.0-1.0 Immature Granulocyte % 0.6 % Normal 0-3.0 Nucleated Red Blood Cell % 0.0 % Normal 0-0 Neutrophils # 8.4 10 Normal 1.5-8.5 Lymph # 0.4 10 Low 1.5-5.0 [place] # 0.4 10 Normal 0.0-0.8 Eos # 0.0 10 Normal 0.0-0.5 Baso # 0.0 10 Normal 0.0-0.2 Comprehensive Metabolic Profil 05/18/2021 [facility] [address] [place] [address] [phone] Glucose, Fasting 109 mg/dL High 70-100 Blood Urea Nitrogen 51 mg/dL High 7-18 Creatinine For GFR 2.17 mg/dL High 0.55-1.30 Glomerular Filtration Rate 24.0 Low >45 1 Sodium Level 136 mEq/L Normal 136-145 Potassium Serum 3.5 mEq/L Normal 3.5-5.1 Chloride Level 104 mEq/L Normal 98-107 Carbon Dioxide Level 19 mEq/L Low 21-32 Anion Gap 13 mEq/L Normal 8-16 Calcium Level 8.0 mg/dL Low 8.8-10.2 Ast/Sgot 43 U/L High 7-37 Alt/SGPT 19 U/L Normal 12-78 Alkaline Phosphatase 68 U/L Normal 45-117 Bilirubin,Total 0.3 mg/dL Normal 0.2-1.0 Total Protein 6.9 GM/DL Normal 6.4-8.2 Albumin 2.8 GM/DL Low 3.2-5.2 Albumin/Globulin Ratio 0.7 Low 1.2-2.2 Respiratory Panel 05/18/2021 [facility] nter [address] [place] [address] [phone] Respiratory Panel This respiratory <SEE NOTE> 2 1 Units are mL/min/1.73 m2 Chronic Kidney Disease Staging per NKF: Stage I & II GFR >=60 Normal to Mildly Decreased Stage III GFR 30-59 Moderately Decreased Stage IV GFR 15-29 Severely Decreased Stage V GFR <15 Very Little GFR Left ESRD GFR <15 on HARBOR ENGINEER 2 This respiratory PCR panel d etects Influenza A H1, H3 and 2009 H1 viruses, Influenza B virus, Resp iratory Syncytial Virus, Human metapneumovirus, Parainfluenza virus 1, 2, 3 and 4, Adenovirus, Rhinovirus/Enterovirus, Coronavirus HKU1, NL63, OC43, 229E and SARS-CoV-2 (COVID 19), Bordetella pertussis, Bordetella parapertussis, Mycoplasma pneumoniae and Chlamydia pneumoniae. POSITIVE by MULTIPLEXED NUCLEIC ACID PCR SARS-CoV-2 (COVID 19) POSITIVE - SARS-CoV-2 (COVID19) ORGANISM 1: SARS-CoV-2 (COVID 19) Procedures Date Code Description Status 01/15/2021 08324 Office/Outpatient Established Mo d MDM 30-39 Min Completed 03/16/2018 980874726 Bone Mineral Density Test Comple mee 03/14/2018 05432315 Mammogram Completed 11/29/2014 62626006 Colonoscopy Completed Medical Devices Description No Information Available Encounters Type Date Location Provider Dx Diagnosis Office Visit 01/15/2021 10:45a [facility] Kaiser Fonseca M.D. M06.4 Inflammatory polyarthropathy I13.0 Hyp hrt & chr kdny dis w hrt fail and stg 1-4/unsp chr kdny N18.30 Chronic kidney disease, stag e 3 unspecified I50.32 Chronic diastolic (congestiv e) heart failure D63.1 Anemia in chronic kidney dis ease I87.2 Venous insufficiency (chroni c) (peripheral) N39.46 Mixed incontinence I35.0 Nonrheumatic aortic (valve) stenosis K30 Functional dyspepsia N25.81 Secondary hyperparathyroidis m of renal origin E66.01 Morbid (severe) obesity due to excess calories Z68.42 Body mass index [BMI] 45.0-4 9.9, adult M15.9 Polyosteoarthritis, unspecif ied Assessments Date Code Description Provider 01/15/2021 M06.4 Inflammatory polyarthropathy Kaiser Fonseca M.D. 01/15/2021 I13.0 Hypertensive heart a nd chronic kidney disease with heart failure and stage 1 through stage 4 chronic kidney disease, or unspecified chronic kidney disease Milagro Fonseca M.D. 01/15/2021 N18.30 Chronic kidney disease, stage 3 unspecified Milagro Fonseca M.D. 01/15/2021 I50.32 Chronic diastolic (congestive) h eart failure Milagro Fonseca M.D. 01/15/2021 D63.1 Anemia in chronic kidney disease Milagro Fonseca M.D. 01/15/2021 I87.2 Venous insufficiency (chronic) ( peripheral) Milagro Fonseca M.D. 01/15/2021 N39.46 Mixed incontinence Milagro rogers M.D. 01/15/2021 I35.0 Nonrheumatic aortic (valve) sten osis Milagro Fonseca M.D. 01/15/2021 K30 Functional dyspepsia Milagro Godinez M.D. 01/15/2021 N25.81 Secondary hyperparathyroidism of renal origin Milagro Fonseca M.D. 01/15/2021 E66.01 Morbid (severe) obesity due to e xcess calories Milagro Fonseca M.D. 01/15/2021 Z68.42 Body mass index [BMI] 45.0-49.9, adult Milagro Fonseca M.D. 01/15/2021 M15.9 Polyosteoarthritis, unspecified Milagro Fonseca M.D. Plan of Treatment No Information Available Functional Status Description No Information Available Mental Status Description No Information Available Referrals Refer to Reason for Referral Status Appt Date [facility] CARDIAC ECHO WITH DOPPLER DX : AORTIC VALVE STENOSIS AUTH: [id number] EXP 08/10/21 Scheduled 05/25/[id number] Russ [address] [place] [address] [phone]
--- OUTSIDE RECORDS SUMMARY | 2021-05-30 16:14 | CCD ---
Continuity of Care Document (CCD) Created on: 04/13/2021 Dana Estrella External Reference #: [id number] : [id number] Sex: Female Author Author Dana SIMS DPM Organization Unknown Address [address] [place] [address], [address] [place] [address] Phone [phone] Care Team Providers Care [employer] Name Role Phone Anna Kinney M.D. [phone] Problems Active Problems Provider Date Peripheral vascular disease Jack Sims DPM Onset: 05/08 Onychomycosis Jack Sims DPM Onset: 08/04/2019 Corns and callosities Jack Sims DPM Onset: 08/04/2019 Social History Type Date Description Comments Sex Unknown ETOH Use Denies alcohol use Tobacco Use Start: Unknown Patient has never smoked Allergies, Adverse Reactions, Alerts Active Allergies Criticality Reaction | Severity Comments Date Keflex Unable to assess criticality hives 10/06/2011 Medications Active Medications SIG Qnty Indications Ordering Provide r Date Santyl 250Unit/GM Ointment apply to wound daily 30units Jack Sims DPM 05/04/2018 Exforge Unknown Ranitidine HCL Unknown Mupirocin Unknown Ranitidine HCL 150mg Tablets Nirmal Mohan,Anna Amlodipine Besylate-Valsartan 5-160mg Tablets Sofie Doe RPA 0 Oxybutynin Chloride ER 10mg Tablets ER 24HR Nirmal Mohan,Anna Hydrochlorothiazide 25mg Tablets Nirmal Mohan,Anna Vitamin D (Ergocalciferol) 51228Cgxk Capsules Nirmal Mohan,Anna Clobetasol Propionate 0.05% Cream Apply A Thin Layer To The Affected Area S Two Times A Day Unknown Hydroxychloroquine Sulfate 200mg T ablets Unknown Polymyxin B Sulfate/Trimethoprim Sulfate 00456-1.1Unit/ML-% Solution Instill 1 Drop In Both Eyes Every 4 6 Ho urs For 7 Days Unknown Mometasone Furoate 50mcg/Act Suspe nsion Use 2 Sprays In Each Nostril Once Daily Unknown Amoxicillin 875mg Tablets Take One Tablet By Mouth Every 12 Hours For 10 Days Unknown Celecoxib 200mg Capsules Unknown Immunizations Description No Information Available Vital Signs Date Vital Result Comment 12/26/2017 1:09pm Height 60 inches 5'0" Weight 230.00 lb BP Systolic 128 mmHg BP Diastolic 78 mmHg Heart Rate 80 /min BMI (Body Mass Index) 44.9 kg/m2 05/26/2017 8:56am Height 60 inches 5'0" Weight 220.00 lb BP Systolic 130 mmHg BP Diastolic 78 mmHg Heart Rate 80 /min BMI (Body Mass Index) 43.0 kg/m2 Results Description No Information Available Procedures Date Code Description Status 04/06/2021 17069 Debridement 6-10 Nails Electric Completed 04/06/2021 78284 Paring/Cut Benign Lesion 2 To 4 Completed 12/12/2020 02968 Debridement 6-10 Nails Electric Completed 12/12/2020 76429 Paring/Cut Benign Lesion 2 To 4 Completed Medical Devices Description No Information Available Encounters Description No Information Available Assessments Date Code Description Provider 04/06/2021 B35.1 Tinea unguium Jack Sims, YESSI 04/06/2021 I73.89 Other specified peripheral vascu lar diseases Jack Sims DPM 04/06/2021 L84 Corns and callosities Jack Sims DPM 12/12/2020 B35.1 Tinea unguium Jack Sims, YESSI 12/12/2020 I73.89 Other specified peripheral vascu lar diseases Jack Sims DPM 12/12/2020 L84 Corns and callosities Jack Sims DPM Plan of Treatment Future Appointment(s):* 06/16/2021 3:45 pm - Jack Sims DPM at [facility] Functional Status Description No Information Available Mental Status Description No Information Available Referrals Description No Information Available
--- OUTSIDE RECORDS SUMMARY | 2021-05-30 16:14 | CCD | Continuity of Care Document ---
Author Author Dana HALE PA Organization Unknown Address [address] [place] [address], [facility] [place] [facility] [address] [place] [address] Phone [phone] Care Team Providers Care Rawhide Bone Roller Name Role Phone Milagro Fonseca MD AUTM [phone] Problems Active Problems Provider Date Sprain of foot Onset: 05/29/1999 Social History Type Date Description Comments Sex Unknown ETOH Use Denies alcohol use Tobacco Use Start: Unknown Denies Smoking Allergies and adverse reactions Active Allergies Criticality Reaction | Severity Comments Date Keflex Unable to assess criticality 01/23/2018 Medications Active Medications SIG Qnty Indications Ordering Provide r Date Tramadol HCL 50mg Tablets 1 every 6 hours as needed pain 30tabs Surinder Parada MD 05/05/2021 Oxybutynin Chloride ER 10mg Tablets ER 24HR take one tablet by mouth every morning for urinary symptoms 30ta bs Anna Kinney MD 07/12/2016 Exforge 5-160mg Tablets take one tablet by mouth every day 30tabs Tom Londono MD Ranitidine HCL 150mg Tablets 1 by mouth twice a day 180tabs Anna Kinney MD Plaquenil 200mg Tablets 1 tab po bid Unknown Immunizations Description No Information Available Vital Signs Date Vital Result Comment 01/23/2018 11:14am Body Temperature 97.3 F Height 59 inches 4'11" Weight 220.00 lb BMI (Body Mass Index) 44.4 kg/m2 Results Description No Information Available Procedures Date Code Description Status 05/15/2021 47665 X-Ray Forearm Ap & Lateral 2 Vie ws Completed 05/04/2021 64744 Office/Outpatient New Moderate M DM 45-59 Minutes Completed 05/04/2021 92872 X-Ray Forearm Ap & Lateral 2 Vie ws Completed 05/04/2021 33971 X-Ray Elbow Ap & Lateral 2 Views Completed 05/04/2021 61262 FX Ulnar Shaft W/O Manipulation Completed Medical Devices Description No Information Available Encounters Type Date Location Provider Dx Diagnosis Office Visit 05/15/2021 10:30a [place] CHACHA Herndon S52.225D Nondisp transverse fx shaft of l ulna, 7thD Office Visit 05/04/2021 4:00p [place] CHACHA Herndon S52.225A Nondisplaced transverse fracture of shaft of left ulna, init Assessments Date Code Description Provider 05/15/2021 S52.225D Nondisplaced transve rse fracture of shaft of left ulna, subsequent encounter for closed fracture with routine healing CHACHA Herndon 05/04/2021 S52.225A Nondisplaced transve rse fracture of shaft of left ulna, initial encounter for closed fracture CHACHA Herndon 05/04/2021 S52.225A Nondisplaced transve rse fracture of shaft of left ulna, initial encounter for closed fracture CHACHA Herndon Plan of Treatment 05/15/2021 - CHACHA Herndon* S52.225D Nondisplaced transverse fracture of shaft of left ulna, subsequent encounter for closed fracture with routine healing* Follow up:* left arm recheck with xrays out of cast with IID Functional Status Description No Information Available Mental Status Description No Information Available Referrals Refer to Dr Reason for Referral Status Appt Date Jose Enrique Hale Pac DME Shure Shoulder Immobili zer - Left [facility] NO AUTH REQUIRED REF # [id number]. LS Created [facility] [address] [place] [address] [phone]
--- OUTSIDE RECORDS SUMMARY | 2021-05-30 16:14 | CCD | Continuity of Care Document ---
Author Author Dana HALE PA Organization Unknown Address [address] [place] [address], [facility] [address] [place] [address] Phone [phone] Care Team Providers Care Independent Freight Agent Name Role Phone Milagro Fonseca MD AUTM [phone] Problems Active Problems Provider Date Sprain of [...] Available Procedures Date Code Description Status 05/15/2021 39885 X-Ray Forearm Ap & Lateral 2 Vie ws Completed 05/04/2021 12148 Office/Outpatient New Moderate M DM 45-59 Minutes Completed 05/04/2021 00738 X-Ray Forearm Ap & Lateral 2 Vie ws Completed 05/04/2021 39555 X-Ray Elbow Ap & Lateral 2 Views Completed 05/04/2021 50523 FX Ulnar Shaft W/O Manipulation Completed Medical Devices Description No Information Available Encounters Type Date Location Provider Dx Diagnosis Office Visit 05/15/2021 10:30a [place] CHACHA Herndon S52.225D Nondisp transverse fx shaft of l ulna, 7thD Office Visit 05/04/2021 4:00p [place] CHACHA Herndon S52.225A Nondisplaced transverse fracture of [...] CHACHA Herndon Plan of Treatment Future Appointment(s):* 05/29/2021 10:45 am - CHACHA Herndon at [place] 05/15/2021 - CHACHA Herndon* S52.225D Nondisplaced transverse fracture of shaft of left ulna, subsequent encounter for closed fracture with routine healing* Follow up:* 2 weeks left forearm recheck with xrays out of cast with IID Functional Status Description No Information Available Mental Status Description No Information Available Referrals Refer to Dr Reason for Referral Status Appt Date Jose Enrique Hale Pac DME Shure Shoulder Immobili zer - Left PER CESS @ [facility] NO AUTH REQUIRED REF # [id number]. LS Created [address] [facility] [address] [place] [address] [phone]
--- OUTSIDE RECORDS SUMMARY | 2021-05-30 16:14 | CCD | Continuity of Care Document ---
Author Author Dana HALE PA Organization Unknown Address [address] [place] [address], [address] [place] [address] Phone [phone] Care Team Providers Care Financial Service Professional Name Role Phone Milagro Fonseca MD AUTM [phone] Problems Active Problems Provider Date Sprain of [...] Available Procedures Date Code Description Status 05/04/2021 56574 Office/Outpatient New Moderate M DM 45-59 Minutes Completed 05/04/2021 17274 X-Ray Forearm Ap & Lateral 2 Vie ws Completed 05/04/2021 19075 X-Ray Elbow Ap & Lateral 2 Views Completed 05/04/2021 83086 FX Ulnar Shaft W/O Manipulation Completed Medical Devices Description No Information Available Encounters Type Date Location Provider Dx Diagnosis Office Visit 05/04/2021 4:00p [place] CHACHA Herndon S52.225A Nondisplaced transverse fracture of shaft of left ulna, init Assessments Date Code Description Provider 05/04/2021 S52.225A Nondisplaced transve rse fracture of shaft of left ulna, initial encounter for closed fracture CHACHA Herndon 05/04/2021 S52.225A Nondisplaced transve rse fracture of shaft of left ulna, initial encounter for closed fracture CHACHA Herndon Plan of Treatment Future Appointment(s):* 05/15/2021 10:30 am - CHACHA Herndon at [place] 05/04/2021 - CHACHA Herndon* S52.225A Nondisplaced transverse fracture of shaft of left ulna, initial encounter for closed fracture* Follow up:* 1 week lt forearm xray thru cast with IID Functional Status Description No Information Available Mental Status Description No Information Available Referrals Refer to Dr Reason for Referral Status Appt Date Jose Enrique Hale Pac DME Shure Shoulder Immobili zer - Left PER CESS @ [facility] NO AUTH REQUIRED REF # [id number]. LS Created [address] [facility] [address] [place] [address] [phone]
--- OUTSIDE RECORDS SUMMARY | 2021-05-30 16:14 | CCD | Continuity of Care Document ---
Author Author Dana HALE PA Organization Unknown Address [address] [place] [address], [address] [place] [address] Phone [phone] Care Team Providers Care Callisthenics Instructor Name Role Phone Milagro Fonseca MD AUTM [phone] Problems Active Problems Provider Date Sprain of [...] Available Procedures Date Code Description Status 05/04/2021 39576 Office/Outpatient New Moderate M DM 45-59 Minutes Completed 05/04/2021 46232 X-Ray Forearm Ap & Lateral 2 Vie ws Completed 05/04/2021 67916 X-Ray Elbow Ap & Lateral 2 Views Completed 05/04/2021 08728 FX Ulnar Shaft W/O Manipulation Completed Medical Devices Description No Information Available Encounters Type Date Location Provider Dx Diagnosis Office Visit 05/04/2021 4:00p [place] CHACHA Herndon S52.225A Nondisplaced transverse fracture of [...] 05/15/2021 10:30 am - CHACHA Herndon at [place] 05/04/2021 - CHACHA Herndon* S52.225A Nondisplaced transverse [...] Immobili zer - Left PER CESS @ [facility] NO AUTH REQUIRED REF # [id number]. LS Created [address] [facility] [address] [place] [address] [phone]
--- OUTSIDE RECORDS SUMMARY | 2021-05-30 16:14 | CCD | Continuity of Care Document ---
Author Author Dana Fonseca M.D. Organization Unknown Address [address] [facility] [address] [place] [address] Phone [phone] Care Team Providers Care Soft Shoe Dancer Name Role Phone Milagro Fonseca MD AUTM [phone] Josephine Strickland MD AUTM [phone] Jack Kang DPM AUTM [phone] [facility] [employer] AUTM [phone] Problems Active Problems Provider Date Hypertensive chronic [...] rodriguez M.D. Onset: 01/11/2019 Peripheral venous insufficiency Kimberlee Wilson t: 01/11/2019 Morbid obesity Milagro Fonseca [...] 44gm Milagro Fonseca M.D. 07/24 Drisdol 1.25mg (15274 Ut) Capsules 1 tab every week po Unknown Hydroxychloroquine Sulfate 200mg T ablets 1 by mouth every day Unknown Medications Administered in Office Medication SIG Qnty Indications Ordering Provider Date Immunization Adminstration,1 Vaccine/Tox oid Injection Milagro Fonseca M.D. 09/2019 Immunizations CPT Code Status Date Vaccine Lot # [id number] Given 02/07/2020 Tetanus/Diptheria(Td)Toxoids Preservative Free [id number] U-PneuC Given 05/01/2018 Prevnar 13 22333 Given 07/01/2010 Adacel- Tetanus Diphtheria P ertussis U-Pneum Given 04/15/2010 Pneumococcal,Unspecified 68345 Refused 01/11/2019 Shingrix Zoster Vaccine (HZV), Recombinant, Subunit, Adjuvanted 53622 Refused 01/11/2019 Zoster Vaccine 11802 Refused 07/24/2018 Influenza Virus Vaccine, Quadrivalent (Cciiv4), [...] H/L Range Note CBC With Differential 05/18/2021 [place] [id number] [phone] White Blood Count 9.3 10 Normal 4.0-10.0 [...] 36.0-66.0 Lymph % 4.4 % Low 24.0-44.0 [place] % 4.3 % Normal 2.0-8.0 Eos % 0.0 % Normal 0.0-3.0 Baso % 0.0 % Normal 0.0-1.0 Immature Granulocyte % 0.6 % Normal 0-3.0 Nucleated Red Blood Cell % 0.0 % Normal 0-0 Neutrophils # 8.4 10 Normal 1.5-8.5 Lymph # 0.4 10 Low 1.5-5.0 [place] # 0.4 10 Normal 0.0-0.8 Eos # 0.0 10 Normal 0.0-0.5 Baso # 0.0 10 Normal 0.0-0.2 Comprehensive Metabolic Profil 05/18/2021 [facility] [address] [place] [address] [phone] Glucose, Fasting 109 mg/dL High 70-100 Blood [...] Ratio 0.7 Low 1.2-2.2 Respiratory Panel 05/18/2021 [facility] [address] [place] [address] [phone] Respiratory Panel This respiratory <SEE NOTE> 2 1 Units are mL/min/1.73 m2 Chronic Kidney Disease Staging per NKF: Stage I & II GFR >=60 Normal to Mildly Decreased Stage III GFR 30-59 Moderately Decreased Stage IV GFR 15-29 Severely Decreased Stage V GFR <15 Very Little GFR Left ESRD GFR <15 on RAMP JOCKEY 2 This respiratory PCR panel d etects [...] 19) Procedures Date Code Description Status 01/15/2021 78232 Office/Outpatient Established Mo d MDM 30-39 Min Completed 03/16/2018 131500164 Bone Mineral Density Test Comple mee 03/14/2018 58598437 Mammogram Completed 11/29/2014 [id number] Colonoscopy Completed Medical Devices Description No Information Available Encounters Type Date Location Provider Dx Diagnosis Office Visit 01/15/2021 10:45a [facility] Kaiser Fonseca M.D. M06.4 Inflammatory [...] to Reason for Referral Status Appt Date [facility] CARDIAC ECHO WITH DOPPLER DX : AORTIC VALVE STENOSIS AUTH: [id number] EXP 08/10/21 Scheduled 05/25/[address] Russ [address] [place] [address] [phone]
--- OUTSIDE RECORDS SUMMARY | 2021-05-30 16:14 | CCD | Continuity of Care Document ---
Author Author Dana HALE PA Organization Unknown Address [address] [place] [address], [address] [place] [address] Phone [phone] Care Team Providers Care Paper Cup Machine Operator Name Role Phone Milagro Fonseca MD [facility] [phone] Problems Active Problems Provider Date Sprain of [...] Available Procedures Date Code Description Status 05/04/2021 82684 X-Ray Forearm Ap & Lateral 2 Vie ws Completed 05/04/2021 28063 X-Ray Elbow Complete Completed Medical Devices Description No Information Available Encounters Description No Information Available Assessments Date Code Description Provider 05/04/2021 S52.225A Nondisplaced transve rse fracture of shaft of left ulna, initial encounter for closed fracture CHACHA Herndon Plan of Treatment Future Appointment(s):* 05/15/2021 10:30 am - CHACHA Herndon at [place] 05/04/2021 - CHACHA Herndon* S52.225A Nondisplaced transverse [...] Immobili zer - Left PER CESS @ [facility] NO AUTH REQUIRED REF # [id number]. LS Created [address] [facility] [address] [place] [address] [phone]
--- OUTSIDE RECORDS SUMMARY | 2021-05-30 16:15 | CCD ---
Author Author [facility] Organization [facility] Address Unknown Phone Unavailable Care Team Providers Care Extrusion Bender Name Role Phone Asad SIMS DPM Unavailable Unavailable Asad SIMS DPM Unavailable Unavailable Asad SIMS DPM Unavailable Unavailable Asad SIMS DPM Unavailable Unavailable Asad SIMS DPM Unavailable Unavailable Asad SIMS DPM Unavailable Unavailable Asad SIMS DPM Unavailable Unavailable Asad SIMS DPM Unavailable Unavailable Asad SIMS DPM Unavailable Unavailable Asad SIMS DPM Unavailable Unavailable Asad SIMS DPM Unavailable Unavailable Asad SIMS DPM Unavailable Unavailable Asad SIMS DPM Unavailable Unavailable Asad SIMS DPM Unavailable Unavailable Asad SIMS DPM Unavailable Unavailable Asad SIMS DPM Unavailable Unavailable Asad SIMS DPM Unavailable Unavailable Asad SIMS DPM Unavailable Unavailable Asad SIMS DPM Unavailable Unavailable Asad SIMS DPM Unavailable Unavailable Asad SIMS DPM Unavailable Unavailable Asad SIMS DPM Unavailable Unavailable Asad SIMS DPM Unavailable Unavailable Asad SIMS DPM Unavailable Unavailable Asad SIMS DPM Unavailable Unavailable Asad SIMS DPM Unavailable Unavailable Asad SIMS DPM Unavailable Unavailable Asad SIMS DPM Unavailable Unavailable Asad SIMS DPM Unavailable Unavailable Asad SIMS DPM Unavailable Unavailable Asad SIMS DPM Unavailable Unavailable Erna Blackmon MD Unavailable Unavailable Erna Blackmon MD Unavailable Unavailable Erna Blackmon MD Unavailable Unavailable Erna Blackmon MD Unavailable Unavailable Erna Blackmon MD Unavailable Unavailable Erna Blackmon MD Unavailable Unavailable Erna Blackmon MD Unavailable Unavailable Erna Blackmon MD Unavailable Unavailable Erna Blackmon MD Unavailable Unavailable Erna Blackmon MD Unavailable Unavailable Erna Blackmon MD Unavailable Unavailable Erna Blackmon MD Unavailable Unavailable Erna Blackmon MD Unavailable Unavailable Erna Blackmon MD Unavailable Unavailable Erna Blackmon MD Unavailable Unavailable Erna Blackmon MD Unavailable Unavailable Erna Blackmon MD Unavailable Unavailable Erna Blackmon MD Unavailable Unavailable Erna Blackmon MD Unavailable Unavailable Erna Blackmon MD Unavailable Unavailable Erna Blackmon MD Unavailable Unavailable Erna Blackmon MD Unavailable Unavailable Erna Blackmon MD Unavailable Unavailable Erna Blackmon MD Unavailable Unavailable Erna Blackmon MD Unavailable Unavailable Rosas Fonseca MD Unavailable Unavailable Rosas Fonseca MD Unavailable Unavailable Rosas Fonseca MD Unavailable Unavailable Rosas Fonseca MD Unavailable Unavailable Rosas Fonseca MD Unavailable Unavailable Rosas Fonseca MD Unavailable Unavailable Rosas Fonseca MD Unavailable Unavailable Rosas Fonseca MD Unavailable Unavailable Rosas Fonseca MD Unavailable Unavailable Rosas Fonseca MD Unavailable Unavailable Rosas Fonseca MD Unavailable Unavailable Rosas Fonseca MD Unavailable Unavailable Rosas Fonseca MD Unavailable Unavailable Rosas Fonseca MD Unavailable Unavailable Rosas Fonseca MD Unavailable Unavailable Rosas Fonseca MD Unavailable Unavailable Rosas Fonseca MD Unavailable Unavailable Rosas Fonseca MD Unavailable Unavailable Rosas Fonseca MD Unavailable Unavailable Rosas Fonseca MD Unavailable Unavailable Rosas Fonseca MD Unavailable Unavailable Rosas Fonseca MD Unavailable Unavailable Rosas Fonseca MD Unavailable Unavailable Rosas Fonseca MD Unavailable Unavailable Rosas Fonseca MD Unavailable Unavailable Rosas Fonseca MD Unavailable Unavailable Rosas Fonseca MD Unavailable Unavailable Rosas Fonseca MD Unavailable Unavailable Rosas Fonseca MD Unavailable Unavailable RaymundoRosas MD Unavailable Unavailable RaymundoRosas reynolds MD Unavailable Unavailable RaymundoRosas MD Unavailable Unavailable RaymundoRosas MD Unavailable Unavailable RaymundoRosas MD Unavailable Unavailable RaymundoRosas MD Unavailable Unavailable RaymundoRosas MD Unavailable Unavailable RaymundoRosas MD Unavailable Unavailable RaymundoRosas MD Unavailable Unavailable RaymundoRosas felix MD Unavailable Unavailable RaymundoRosas MD Unavailable Unavailable RaymundoRosas MD Unavailable Unavailable RaymundoRosas MD Unavailable Unavailable RaymundoRosas MD Unavailable Unavailable RaymundoRosas MD Unavailable Unavailable RaymundoRosas MD Unavailable Unavailable RaymundoRosas MD Unavailable Unavailable RaymundoRosas reynolds MD Unavailable Unavailable RaymundoRosas MD Unavailable Unavailable Rosas Fonseca MD Unavailable Unavailable Rosas Fonseca MD Unavailable Unavailable Rosas Fonseca MD Unavailable Unavailable RaymundoRosas reynolds MD Unavailable Unavailable Rosas Fonseca MD Unavailable Unavailable Rosas Fonseca MD Unavailable Unavailable Rosas Fonseca MD Unavailable Unavailable Rosas Fonseca MD Unavailable Unavailable Rosas Fonseca MD Unavailable Unavailable Rosas Fonseca MD Unavailable Unavailable Rosas Fonseca MD Unavailable Unavailable Rosas Fonseca MD Unavailable Unavailable Rosas Fonseca MD Unavailable Unavailable Rosas Fonseca MD Unavailable Unavailable Rosas Fonseca MD Unavailable Unavailable Rosas Fonseca MD Unavailable Unavailable Rosas Fonseca MD Unavailable Unavailable Rosas Fonseca MD Unavailable Unavailable Rosas Fonseca MD Unavailable Unavailable Rosas Fonseca MD Unavailable Unavailable Rosas Fonseca MD Unavailable Unavailable Rosas Fonseca MD Unavailable Unavailable Rosas Fonseca MD Unavailable Unavailable Rosas Fonseca MD Unavailable Unavailable Rosas Fonseca MD Unavailable Unavailable Rosas Fonseca MD Unavailable Unavailable Rosas Fonseca MD Unavailable Unavailable Rosas Fonseca MD Unavailable Unavailable Rosas Fonseca MD Unavailable Unavailable Rosas Fonseca MD Unavailable Unavailable Rosas Fonseca MD Unavailable Unavailable Raymundo M Milagro MD Unavailable Unavailable Rosas Fonseca MD Unavailable Unavailable Rosas Fonseca MD Unavailable Unavailable Rosas Fonseca MD Unavailable Unavailable Rosas Fonseca MD Unavailable Unavailable DRAZEK, I GUERRERO PA Unavailable Unavailable DRAZEK, I GUERRERO PA Unavailable Unavailable DRAZEK, I GUERRERO PA Unavailable Unavailable DRAZEK, I GUERRERO PA Unavailable Unavailable DRAZEK, I GUERRERO PA Unavailable Unavailable DRAZEK, I GUERRERO PA Unavailable Unavailable DRAZEK, I GUERRERO PA Unavailable Unavailable DRAZEK, I GUERRERO PA Unavailable Unavailable DRAZEK, I GUERRERO PA Unavailable Unavailable DRAZEK, I GUERRERO PA Unavailable Unavailable DRAZEK, I GUERRERO PA Unavailable Unavailable DRAZEK, I GUERRERO PA Unavailable Unavailable DRAZEK, I GUERRERO PA Unavailable Unavailable DRAZEK, I GUERRERO PA Unavailable Unavailable DRAZEK, I GUERRERO PA Unavailable Unavailable DRAZEK, I GUERRERO PA Unavailable Unavailable DRAZEK, I GUERRERO PA Unavailable Unavailable DRAZEK, I GUERRERO PA Unavailable Unavailable DRAZEK, I GUERRERO PA Unavailable Unavailable DRAZEK, I GUERRERO PA Unavailable Unavailable DRAZEK, I GUERRERO PA Unavailable Unavailable DRAZEK, I GUERRERO PA Unavailable Unavailable DRAZEK, I GUERRERO PA Unavailable Unavailable DRAZEK, I GUERRERO PA Unavailable Unavailable DRAZEK, I GUERRERO PA Unavailable Unavailable DRAZEK, I GUERRERO PA Unavailable Unavailable DRAZEK, I GUERRERO PA Unavailable Unavailable DRAZEK, I GUERRERO PA Unavailable Unavailable DRAZEK, I GUERRERO PA Unavailable Unavailable DRAZEK, I GUERRERO PA Unavailable Unavailable Re-disclosure Warning The records that you are about to access may contain information from federally-assisted alcohol or drug abuse programs. If such information is present, then the following federally mandated warning applies: This information has been disclosed to you from records protected by federal confidentiality rules (42 CFR part 2). The federal rules prohibit you from making any further disclosure of this information unless further disclosure is expressly permitted by the written consent of the person to whom it pertains or as otherwise permitted by 42 CFR part 2. A general authorization for the release of medical or other information is NOT sufficient for this purpose. The Federal rules restrict any use of the information to criminally investigate or prosecute any alcohol or drug abuse patient.The records that you are about to access may contain highly sensitive health information, the redisclosure of which is protected by Article 27-F of the [facility] Public Health law. If you continue you may have access to information: Regarding HIV / AIDS; Provided by facilities licensed or operated by the [facility] Office of Mental Health; or Provided by the [facility] Office for People With Developmental Disabilities. If such information is present, then the following [facility] mandated warning applies: This information has been disclosed to you from confidential records which are protected by state law. State law prohibits you from making any further disclosure of this information without the specific written consent of the person to whom it pertains, or as otherwise permitted by law. Any unauthorized further disclosure in violation of state law may result in a fine or group home sentence or both. A general authorization for the release of medical or other information is NOT sufficient authorization for further disc losure. Family History Family Member Name Family Member Gender Family Member Status Date o f Status Description Data Source(s) Unknown Unknown Problem [facility] ([facility]) Unknown Unknown Problem [facility] ([facility] Alcohol issues and drugs. No known famil y hx. of mental illness Unknown Male Problem [facility] ([facility]) Unknown Male Problem [facility] ([facility] () - at 70 Unknown Unknown Problem [facility] ([facility]) Encounters Encounter Providers Location Date Indications Data Source(s ) Office Visit Attender: GUERRERO BURNHAM Physical Therapy 2020 10:30:00 AM EDT [facility] ([facility]) Outpatient Attender: GUERRERO BURNHAM Physical Therapy 05/04/2021 0 4:00:00 PM EDT [facility] ([facility]) Unknown [address] [facility] [address] 04/08/2021 12:00:00 AM EDT eCW1 ([facility]) Outpatient Attender: Milagro Taylor 10:45:00 AM EDT MED[facility] ([facility] ) Office Visit, Est Pt., Level 4 PC [address] [place] [address] 09/23/2020 12:00:00 AM EST eCW1 ([facility]) Outpatient Attender: Milagro Taylor 08:45:00 AM EST MED[facility] ([facility] ) Office Visit, Est Pt., Level [address] [place] [address] 09/03/2020 12:00:00 AM EST eCW1 ([facility]) Outpatient Attender: Milagro Taylor 09:30:00 AM EST [facility] ([facility] ) Outpatient Attender: Jelly Blackmon MD 07/09/2020 12:00:00 AM [facility] Outpatient Attender: Jelly Blackmon MDReferrer: YAMINI SIMS DPM [id number] 05/21/2020 12:00:00 AM EDT - 05/21/2020 11:24:05 AM EDT Non-pressure chronic ulcer of left calf with fat layer exposed [facility] Non-pressure chronic ulcer of left calf with fat layer exposed Outpatient Attender: Milagro Taylor 10:30:00 AM EDT MED[facility] ([facility] ) Outpatient Attender: Jelly Blackmon MDReferrer: YAMINI SIMS DPM [id number] 04/10/2020 12:00:00 AM EDT - 04/10/2020 11:49:05 AM [facility] Outpatient Attender: Jelly Blackmon MD 04/03/2020 12:00:00 AM [facility] Medications Medication Brand Name Start Date Product Form Dose Route Admi nistrative Instructions Pharmacy Instructions Status Indications Reaction Description Data Source(s) 50 mg 05/06/2021 12:00:00 AM EDT tablet 30 TAKE ONE TABLET BY MOUTH EVERY 6 HOURS NEEDED FOR PAIN MAXIMUM DAILY DOSE = 4 TAKE ONE TABLET BY MOUTH EVERY 6 HOURS NEEDED FOR PAIN MAXIMUM DAILY DOSE = 4 SOLD: 05/17/2021 Eunice Kumar tramadol hydrochloride 50 MG Oral Tablet Tramadol HCL 05/05/2021 12:00:00 AM EDT active [facility] ([facility] ) 1,250 mcg (50,000 unit) 03/14/2021 12:00:00 AM EDT capsule 6 TAKE 1 CAPSULE BY MOUTH ONCE A WEEK FOR 6 WEEKS TAKE 1 CAPSULE BY MOUTH ONCE A WEEK FOR 6 WEEKS SOLD: 03/22/2021 [facility] 20 mg 03/12/2021 12:00:00 AM EDT tablet 90 TAKE ONE TABLET BY MOUTH EVERY DAY TAKE ONE TABLET BY MOUTH EVERY DAY SOLD: 03/13/2021 [facility] NITROFURANTOIN, MACROCRYSTALS 25 MG / Ni trofurantoin, Monohydrate 75 MG Oral Capsule 100 mg NITROFURANTOIN MONOHYD/M-CRYST 03/11/2021 12:00:00 AM EDT ca psule 10 TAKE ONE CAPSULE BY MOUTH TWICE A DAY FOR 5 DAYS TAKE ONE CAPSULE BY MOUTH TWICE A DAY FOR 5 DAYS SOLD: 03/13/2021 [facility] 20 mg 02/19/2021 12:00:00 AM EDT capsule,delayed release (DR/EC) 90 TAKE ONE CAPSULE BY MOUTH EVERY DAY TAKE ONE CAPSULE BY MOUTH EVERY DAY SOLD: 02/19/2021 [facility] 25 mg 01/15/2021 12:00:00 AM EDT tablet 90 TAKE ONE TABLET BY MOUTH EVERY MORNING TAKE ONE TABLET BY MOUTH EVERY MORNING SOLD: 01/28/2021 [facility] Hydroxychloroquine Sulfate 200 MG Oral Tablet HYDROXYCHLOROQ UINE SULFATE 09/26/2020 12:00:00 AM EST tablet 90 TAKE ONE TABLE T BY MOUTH EVERY DAY TAKE ONE TABLET BY MOUTH EVERY DAY SOLD: 10/03/2020 [facility] 25 mg 09/17/2020 12:00:00 AM EST tablet 90 TAKE ONE TABLET BY MOUTH AT BEDTIME TAKE ONE TABLET BY MOUTH AT BEDTIME SOLD: 09/25/2020 [facility] Losartan Potassium 25 MG Oral Tablet Losartan Potassium 05/2021 12:00:00 AM EST ORAL active [facility] ([facility]) 25 mg 09/17/2020 12:00:00 AM EST tablet 90 TAKE ONE TABLET BY MOUTH AT BEDTIME TAKE ONE TABLET BY MOUTH AT BEDTIME SOLD: 01/06/2021 [facility] 10 mg 09/17/2020 12:00:00 AM EST tablet extended release 24hr 90 TAKE ONE TABLET BY MOUTH EVERY DAY NEEDED TAKE ONE TABLET BY MOUTH EVERY DAY NE EDED SOLD: 12/27/2020 [facility] 25 mg 09/17/2020 12:00:00 AM EST tablet 90 TAKE ONE TABLET BY MOUTH AT BEDTIME TAKE ONE TABLET BY MOUTH AT BEDTIME SOLD: 04/09/2021 [facility] 10 mg 09/17/2020 12:00:00 AM EST tablet extended release 24hr 90 TAKE ONE TABLET BY MOUTH EVERY DAY NEEDED TAKE ONE TABLET BY MOUTH EVERY DAY NE EDED SOLD: 04/02/2021 [facility] 10 mg 09/17/2020 12:00:00 AM EST tablet extended release 24hr 90 TAKE ONE TABLET BY MOUTH EVERY DAY NEEDED TAKE ONE TABLET BY MOUTH EVERY DAY NE EDED SOLD: 09/25/2020 [facility] Hydroxychloroquine Sulfate 200 MG Oral Tablet HYDROXYCHLOROQ UINE SULFATE 09/04/2020 12:00:00 AM EST tablet 30 TAKE ONE TABLET BY MOUTH ONCE DAILY DIRECTED TAKE ONE TABLET BY MOUTH ONCE DAILY DIRECTED SOLD: 09/06/2020 [facility] Hydroxychloroquine Sulfate 200 MG Oral Tablet [Plaquen il] Plaquenil 200 MG Plaquenil 200 MG 09/03/2020 12:00:00 AM EST a ctive Plaquenil 200 MG eCW1 ([facility]) Hydroxychloroquine Sulfate 200 MG Oral Tablet [Plaquen il] Plaquenil 200 MG Plaquenil 200 MG 09/03/2020 12:00:00 AM EST a ctive Plaquenil 200 MG eCW1 ([facility]) Hydroxychloroquine Sulfate 200 MG Oral Tablet [Plaquen il] Plaquenil 200 MG Plaquenil 200 MG 09/03/2020 12:00:00 AM EST a ctive Plaquenil 200 MG eCW1 ([facility]) 20 mg 08/15/2020 12:00:00 AM EST capsule,delayed release (DR/EC) 90 TAKE ONE CAPSULE BY MOUTH EVERY DAY TAKE ONE CAPSULE BY MOUTH EVERY DAY SOLD: 08/27/2020 [facility] 20 mg 08/15/2020 12:00:00 AM EST capsule,delayed release (DR/EC) 90 TAKE ONE CAPSULE BY MOUTH EVERY DAY TAKE ONE CAPSULE BY MOUTH EVERY DAY SOLD: 11/20/2020 [facility] Calcium Carbonate 500 MG Chewable Tablet [Tums] Tums 08/14/2020 12:00:00 AM EST ORAL active [facility] ( [facility]) Omeprazole 20 MG Delayed Release Oral Capsule Omeprazole 08/14/2020 12:00:00 AM EST ORAL active [facility] ([facility]) Mupirocin 0.02 MG/MG Topical Ointment mupirocin (BACTR OBAN) 2 % ointment mupirocin (BACTROBAN) 2 % ointment 05/21/2020 11:00:00 AM EDT Topical completed Ulcer of calf, right, with fat layer exposed Topical, Once, 05/21/20 at 1100, For 1 dose
Apply to affected area as per [facility] instruction
[facility] System Ulcer of calf, right, with fat layer exp osed Medication administered onsite 40 mg 05/13/2020 12:00:00 AM EDT tablet 90 TAKE ONE TABLET BY MOUTH EVERY DAY TAKE ONE TABLET BY MOUTH EVERY DAY SOLD: 05/30/2020 [facility] Famotidine 40 MG Oral Tablet Famotidine 40 MG Oral Tab let (PEPCID) Famotidine 40 MG Oral Tablet (PEPCID) 05/12/2020 12:00:00 AM EDT 40 mg Oral active Take 40 mg by mouth daily [facility] 25 mg 03/28/2020 12:00:00 AM EDT tablet 90 TAKE ONE TABLET BY MOUTH EVERY DAY TAKE ONE TABLET BY MOUTH EVERY DAY SOLD: 04/03/2020 [facility] 25 mg 03/28/2020 12:00:00 AM EDT tablet 90 TAKE ONE TABLET BY MOUTH EVERY DAY TAKE ONE TABLET BY MOUTH EVERY DAY SOLD: 07/01/2020 [facility] 25 mg 01/29/2020 12:00:00 AM EDT tablet 90 TAKE ONE TABLET BY MOUTH EVERY DAY IN THE MORNING TAKE ONE TABLET BY MOUTH EVERY DAY IN THE MORNING SOLD : 08/07/2020 [facility] 25 mg 01/29/2020 12:00:00 AM EDT tablet 90 TAKE ONE TABLET BY MOUTH EVERY DAY IN THE MORNING TAKE ONE TABLET BY MOUTH EVERY DAY IN THE MORNING SOLD : 05/03/2020 [facility] 25 mg 01/29/2020 12:00:00 AM EDT tablet 90 TAKE ONE TABLET BY MOUTH EVERY DAY IN THE MORNING TAKE ONE TABLET BY MOUTH EVERY DAY IN THE MORNING SOLD : 11/01/2020 [facility] 2 % 10/18/2019 12:00:00 AM EDT ointment 22 APPLY TOPICALLY TO AFFECTED AREA DIRECTED BY WOUND CARE PHYSICIAN APPLY TOPICALLY TO AFFECTED AREA DIRE CTED BY WOUND CARE PHYSICIAN SOLD: 07/01/2020 [facility] 2 % 10/18/2019 12:00:00 AM EDT ointment 22 APPLY TOPICALLY TO AFFECTED AREA DIRECTED BY WOUND CARE PHYSICIAN APPLY TOPICALLY TO AFFECTED AREA DIRE CTED BY WOUND CARE PHYSICIAN SOLD: 10/03/2020 [facility] 10 mg 09/13/2019 12:00:00 AM EST tablet extended release 24hr 90 TAKE ONE TABLET BY MOUTH EVERY DAY NEEDED TAKE ONE TABLET BY MOUTH EVERY DAY NE EDED SOLD: 07/01/2020 [facility] 10 mg 09/13/2019 12:00:00 AM EST tablet extended release 24hr 90 TAKE ONE TABLET BY MOUTH EVERY DAY NEEDED TAKE ONE TABLET BY MOUTH EVERY DAY NE EDED SOLD: 04/03/2020 [facility] Insurance Providers Payer name Policy type / Coverage type Policy ID Covered democrat ID Covered democrat's relationship to werner Policy Werner Plan Information [facility] [place] FEDERAL [id number] SP [id number] [facility] Federal Plan Commercial [id number] Self [id number] EXCELLUS [facility] FEDERAL [id number] SP [id number] EXCELLUS [id number] Self [id number] [facility] FEDERAL EMPLOYEE PROGRAM [id number] SP [id number] [facility] FEDERAL EMPLOYEE PROGRAM [id number] SP [id number] [place] Federal Employee Program J [id number] SELF [id number] [facility] Plan Commercial [id number] Self [id number] Medicare [place] Medigap Part B [id number] Self [id number] Medicare [place] Medigap Part B [id number] Self [id number] [facility] O G Self Medicare [place] Medigap Part B [id number] Self [id number] [employer] Commercial [id number] Self [id number] [employer] Commercial [id number] Self [employer] Commercial [id number] Self [facility] Commercial [id number] Self ANS-Medicare Part B [id number] ANS-Medicare Part B [id number] ANS-Medicare Part B [id number] TODAYS OPTIONS [id number] ANS-Medicare Part B [id number] [facility] Part B [id number] Self [id number] Today's Option Commercial [id number] Self [id number] [facility]-Medicare Part B [id number] Today's Option Commercial [id number] Self [id number] [facility] [id number] MEDICARE [id number] SP [id number] [facility] Commercial [id number] Self [id number] WELLCARE [id number] SP [id number] [facility] Medigap Part B [id number] .[id number] [id number] [facility] [id number] .[id number] Self [id number] Medicare [place] Medicare Primary [id number] [id number] Self [id number] [facility] Health Maintenance Organization (HMO) [id number] Self [id number] BS [place] [facility] B [id number] S [id number] [facility] Health Maintenance Organization (HMO) [id number] Self [id number] BS [facility] Health Maintenance Organization ([facility]) [id number] Self [id number] BS [facility] Health Maintenance [facility] ([facility]) [id number] Self [id number] BS [place] FEDERAL B [id number] S [id number] BS [facility] Health Maintenance Organization ([facility]) [id number] Self [id number] BS [facility] Health Maintenance [facility] ([facility]) [id number] S [id number] [employer] [place] FEDERAL PLN O [id number] S [id number] BS [facility] Medigap Part B [id number] .[id number] Self [id number] [employer] [place] Medigap Part B [id number] Self [id number] [employer] [place] [employer] Medigap Part B [id number] Self [id number] [employer] Commercial [id number] Self [id number] [employer] [place] [employer] Medigap Part B [id number] Self [id number] [employer] Commercial [id number] Self [id number] [employer] [place] [employer] Medigap Part B [id number] Self [id number] MEDICARE [id number] [employer] [place] [employer] Medigap Part B [id number] Self [id number] [employer] [place] [employer] Medigap Part B [id number] Self [id number] TODAYS OPTIONS [id number] MEDICARE [id number] A ANSI-Medicare Part B [id number] Todays Option Medicare Commercial [id number] Self [id number] [employer] [place] [employer] Commercial [id number] Self [id number] ANSI-Medicare Part B [id number] ANSI-Medicare Part B [id number] Problems, Conditions, and Diagnoses Code Display Name Description Problem Type Effective Dates Data Source(s) L30.9 Dermatitis, unspecified Dermatitis, unspecified Diagno sis 05/21/2020 10:00:09 AM [facility] L97.212 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 Diagnosis 05/21/2020 10:00:09 AM [facility] L97.222 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 Diagnosis 05/21/2020 10:00:09 AM [facility] M19.90 [id number] Inflammatory arthritis Problem 09/23/2020 12 :00:00 AM EST eCW1 ([facility]) M32.9 [id number] History of systemic lupus erythematosus P roblem 09/23/2020 12:00:00 AM EST eCW1 ([facility]) M35.00 [id number] Sicca syndrome Problem 09/03/2020 12:00:00 A M EST eCW1 ([facility]) M35.01 [id number] Sjogren's syndrome with keratoconjunctivi tis sicca Problem 09/03/2020 12:00:00 AM EST eCW1 ([facility]) M89.49 [id number] Primary osteoarthritis involving multiple joints Problem 09/03/2020 12:00:00 AM EST eCW1 ([facility]) Surgeries/Procedures Procedure Description Date Indications Data Source(s) RADEX FOREARM 2 VIEWS 05/15/2021 12:00:00 AM EDT MEDENT ([facility] ) FX Ulnar Shaft W/O Manipulation 05/04/2021 12:00:00 AM EDT MEDENT ([facility] ) X-Ray Elbow Ap & Lateral 2 Views 05/04/2021 12:00:00 A M EDT MEDENT ([facility] ) RADEX FOREARM 2 VIEWS 05/04/2021 12:00:00 AM EDT MEDENT ([facility] ) OFFICE OUTPATIENT NEW 45 MINUTES 05/04/2021 12:00:00 A M EDT MEDENT ([facility] ) RADEX ELBOW COMPLETE MINIMUM 3 VIEWS 05/04/2021 12:00: 00 AM EDT MEDENT ([facility]) PARING/CUTTING BENIGN HYPERKERATOTIC LESION 2-4 2020 12:00:00 AM EDT MED[facility] ([facility] DEBRIDEMENT NAIL ANY METHOD 04/06/2021 12:00:00 AM EDT MEDENT ([facility] OFFICE OUTPATIENT VISIT 25 MINUTES 01/15/2021 12:00:00 AM EDT MEDENT ([facility]) PARING/CUTTING BENIGN HYPERKERATOTIC LESION 2-4 2020 12:00:00 AM EDT MEDENT ([facility] DEBRIDEMENT NAIL ANY METHOD 12/12/2020 12:00:00 AM EDT MEDENT ([facility] PARING/CUTTING BENIGN HYPERKERATOTIC LESION 2-4 2020 12:00:00 AM EST MEDENT ([facility] DEBRIDEMENT NAIL ANY METHOD 09/18/2020 12:00:00 AM EST MEDENT ([facility] PARING/CUTTING BENIGN HYPERKERATOTIC LESION 2-4 2019 12:00:00 AM EST MEDENT ([facility] DEBRIDEMENT NAIL ANY METHOD 07/11/2020 12:00:00 AM EST MEDENT ([facility] WOUND CARE <td>WOUND CARE</td><td>Routi ne</td><td>05/21/2020</td><td> Ulcer of calf, right, with fat layer exposed Ulcer of calf, left, with fat layer exposed Lymphedema of both lower extremities Dermatitis</td><td></td> 05/21/2020 12:00:00 AM EDT DermatitisLymphedema of bot h lower extremitiesUlcer of calf, left, with fat layer exposedUlcer of calf, right, with fat layer exposed [facility] Dermatitis Lymphedema of both lower extremities Ulcer of calf, left, with fat layer expo sed Ulcer of calf, right, with fat layer exp osed PARING/CUTTING BENIGN HYPERKERATOTIC LESION 2-4 2019 12:00:00 AM EDT MEDENT ([facility] DEBRIDEMENT NAIL ANY METHOD 6/> 05/02/2020 12:00:00 AM EDT MEDENT ([facility] Results ID Date Data Source [id number] 05/18/2021 03:39:00 PM EDT [facility] Name Value Range Interpretation Code Description Data Sheba rce(s) Supporting Document(s) Respiratory pathogens identified [Type] in Nasopharynx by Probe and target amplification method SARS-CoV-2 (COVID 19) [facility] This lab was ordered by [facility] a nd reported by [facility]. ID Date Data Source [id number] 05/18/2021 03:39:00 PM EDT MEDENT ([facility]) Name Value Range Interpretation Code Description Data Sheba rce(s) Supporting Document(s) Respiratory Panel Laboratory test result [facility] ([facility] This respiratory PCR panel detects Influ [place] A H1, H3 and 2009 H1 viruses, Influenza B virus, Resp iratory Syncytial Virus, Human metapneumovirus, Parainfluenza virus 1, 2, 3 and 4, Adenovirus, Rhinovirus/Enterovirus, Coronavirus HKU1, NL63, OC43, 229E and SARS-CoV-2 (COVID 19), Bordetella pertussis, Bordetella parapertussis, Mycoplasma pneumoniae and Chlamydia pneumoniae. POSITIVE by MULTIPLEXED NUCLEIC ACID PCR SARS-CoV-2 (COVID 19) POSITIVE - SARS-CoV-2 (COVID19) ORGANISM 1: SARS-CoV-2 (COVID 19) ID Date Data Source [id number] 05/18/2021 03:39:00 PM EDT MEDENT ([facility]) Name Value Range Interpretation Code Description Data Sheba rce(s) Supporting Document(s) Glucose, Fasting 109 mg/dL 70-100 MEDENT ([facility]) Blood Urea Nitrogen 51 mg/dL 7-18 [facility] Creatinine For GFR 2.17 mg/dL 0.55-1.30 MEDENT ([facility]) Glomerular Filtration Rate 24.0 MED ENT ([facility]) <content>Units are mL/min/1.73 m2</content>
<content></content>
<content>Chronic Kidney Disease Staging per NKF:</content>
<content></content>
<content>Stage I & II GFR >=60 Normal to Mildly Decreased</content>
<content>Stage III GFR 30- 59 Moderately Decreased</content>
<content>Stage IV GFR 15-29 Severely Decreased</content>
<content>Stage V GFR <15 Very Little GFR Left</content>
<content>ESRD GFR <15 on SENIOR PROJECT LEADER/TEAM LEAD</content>
<content></content> Sodium Level 136 meq/L 136-145 MEDENT ([facility]) Potassium Serum 3.5 meq/L 3.5-5.1 MEDENT ([facility]) Chloride Level 104 meq/L 98-107 MEDENT ([facility]) Carbon Dioxide Level 19 meq/L 21-32 MEDENT ([facility]) Anion Gap 13 meq/L 8-16 MEDENT ([facility]) Calcium Level 8.0 mg/dL 8.8-10.2 MEDENT ([facility]) Alt/SGPT 19 U/L 12-78 MEDENT ([facility]) Ast/Sgot 43 U/L 7-37 MEDENT ([facility]) Bilirubin,Total 0.3 mg/dL 0.2-1.0 MEDENT ([facility]) Alkaline Phosphatase 68 U/L 45-117 [facility] Albumin 2.8 GM/DL 3.2-5.2 MEDENT ([facility]) Total Protein 6.9 GM/DL 6.4-8.2 MEDENT ([facility]) Albumin/Globulin Ratio 0.7 1.2-2.2 MEDENT ([facility]) ID Date Data Source [id number] 05/18/2021 03:39:00 PM EDT MEDENT ([facility]) Name Value Range Interpretation Code Description Data Sheba rce(s) Supporting Document(s) White Blood Count 9.3 10 4.0-10.0 MEDENT ([facility]) Red Blood Count 3.52 10 4.00-5.40 MEDENT ([facility]) Hemoglobin 9.6 g/dL 12.0-15.5 [facility] Hematocrit 30.4 % 36.0-47.0 MEDENT ([facility]) Mean Corpuscular Volume 86.4 fl 80.0-96.0 MEDENT ([facility]) Mean Corpuscular Hemoglobin 27.3 pg 27.0-33.0 ME DENT ([facility]) Red Cell Distribution Width 15.1 % 11.5-14.5 ME DENT ([facility]) Mean Corpuscular HGB Conc 31.6 g/dL 32.0-36.5 MEDE NT ([facility]) Neutrophils % 90.7 % 36.0-66.0 MEDENT ([facility]) Platelet Count, Automated 216 10 150-450 MEDE NT ([facility]) Lymph % 4.4 % 24.0-44.0 [facility]) [place] % 4.3 % 2.0-8.0 [facility] Eos % 0.0 % 0.0-3.0 [facility] Immature Granulocyte % 0.6 % 0-3.0 MED[facility] ([facility]) Baso % 0.0 % 0.0-1.0 [facility] Nucleated Red Blood Cell % 0.0 % 0-0 MED ENT ([facility]) Neutrophils # 8.4 10 1.5-8.5 MEDENT ([facility]) [place] # 0.4 10 0.0-0.8 [facility]) Lymph # 0.4 10 1.5-5.0 [facility]) Eos # 0.0 10 0.0-0.5 [facility]) Baso # 0.0 10 0.0-0.2 [facility]) ID Date Data Source NAYELI TITER & PATTERN 09/03/2020 12:00:00 AM EST eCW1 ([facility]) Name Value Range Interpretation Code Description Data Sheba rce(s) Supporting Document(s) Positive . eCW1 ([facility]) ID Date Data Source ANTI-SJOGRENS A&B ANTIBODIES 09/03/2020 12:00:00 AM EST eCW1 ([facility]) Name Value Range Interpretation Code Description Data Sheba rce(s) Supporting Document(s) <0.2 0.0-0.9 eCW1 ([facility]) <0.2 0.0-0.9 eCW1 ([facility]) ID Date Data Source CYCLIC CITRULLINATED PEPTIDE 09/03/2020 12:00:00 AM EST eCW1 ([facility]) Name Value Range Interpretation Code Description Data Sheba rce(s) Supporting Document(s) 10 0-19 eCW1 ([facility]) ID Date Data Source HEPATITIS B CORE ANTIBODY IGG 09/03/2020 12:00:00 AM EST eCW 1 ([facility]) Name Value Range Interpretation Code Description Data Sheba rce(s) Supporting Document(s) Negative Negative eCW1 ([facility]) ID Date Data Source ANTI DOUBLE STRAND DNA TREY 09/03/2020 12:00:00 AM EST eCW1 ( [facility]) Name Value Range Interpretation Code Description Data Sheba rce(s) Supporting Document(s) eCW1 ([facility]) ID Date Data Source RHEUMATOID FACTOR QUANT 09/03/2020 12:00:00 AM EST eCW1 ([facility]) Name Value Range Interpretation Code Description Data Sheba rce(s) Supporting Document(s) < 10.0 <15.0 eCW1 ([facility]) ID Date Data Source URIC ACID 09/03/2020 12:00:00 AM EST eCW1 ([facility]) Name Value Range Interpretation Code Description Data Sheba rce(s) Supporting Document(s) 7.6 2.6-6.0 eCW1 ([facility]) ID Date Data Source HEPATITIS C ANTIBODY INDEX 09/03/2020 12:00:00 AM EST eCW1 ( [facility]) Name Value Range Interpretation Code Description Data Sheba rce(s) Supporting Document(s) < 0.0 <0.8 eCW1 ([facility]) ID Date Data Source ERYTHROCYTE SEDIMENTATION RATE 09/03/2020 12:00:00 AM EST eC W1 ([facility]) Name Value Range Interpretation Code Description Data Sheba rce(s) Supporting Document(s) 60 0-30 eCW1 ([facility]) ID Date Data Source HEPATITIS B SURFACE ANTIGEN 09/03/2020 12:00:00 AM EST eCW1 ([facility]) Name Value Range Interpretation Code Description Data Sheba rce(s) Supporting Document(s) NEGATIVE NEGATIVE eCW1 ([facility]) ID Date Data Source C REACTIVE PROTEIN QUANTITATIV (At [facility]) 09/03/2020 12:00 :00 AM EST eCW1 ([facility]) Name Value Range Interpretation Code Description Data Sheba rce(s) Supporting Document(s) 0.36 0.00-0.30 eCW1 ([facility]) ID Date Data Source Comprehensive Metabolic Profile (CMP) 09/03/2020 12:00:00 AM EST eCW1 ([facility]) Name Value Range Interpretation Code Description Data Sheba rce(s) Supporting Document(s) 99 70-100 eCW1 ([facility]) 45 7-18 eCW1 ([facility]) 137 136-145 eCW1 ([facility]) 1.46 0.55-1.30 eCW1 ([facility]) 38.0 >45 eCW1 ([facility]) 4.6 3.5-5.1 eCW1 ([facility]) 100 98-107 eCW1 ([facility]) 18 12-78 eCW1 ([facility]) 9.8 8.8-10.2 eCW1 ([facility]) 16 7-37 eCW1 ([facility]) 28 21-32 eCW1 ([facility]) 74 45-117 eCW1 ([facility]) 4.0 3.2-5.2 eCW1 ([facility]) 7.7 6.4-8.2 eCW1 ([facility]) 0.3 0.2-1.0 eCW1 ([facility]) 1.1 1.2-2.2 eCW1 ([facility]) ID Date Data Source COMPLEMENT C4 09/03/2020 12:00:00 AM EST eCW1 ([facility]) Name Value Range Interpretation Code Description Data Sheba rce(s) Supporting Document(s) 27 10-40 eCW1 ([facility]) ID Date Data Source COMPLEMENT C3 09/03/2020 12:00:00 AM EST eCW1 ([facility]) Name Value Range Interpretation Code Description Data Sheba rce(s) Supporting Document(s) 129 90-180 eCW1 ([facility]) ID Date Data Source [id number] 05/21/2020 05:40:59 PM [facility] Name Value Range Interpretation Code Description Data Sheba rce(s) Supporting Document(s) Progress Note [facility] BUEBDd1uTbENRmKy80/FFJpmZKZfg1LrVKrdOTe2HZxdNKDqR2PdAMH7kC2dXAY9JZbNZvUnQjXbTUC5 [facility] [file] AxOTgxNyAwMDAwMCBuDQowMDAwMDIwMDIzIDAwMDAw ES0UEjPoFKTfSkG9FYMpEQTfYSYqpq1BVAJjBOOnEBS7TZRsRGWuRPWxJWnwWTPhYUYoXmKjIWZwZWPz JA9JLzPzYLYcCwYcZnJuXHUcNFMwwa2QRJYjJUJgTlFgKWFbEEGwFAHePBouWLTdMHPnFjPtJTBzEYOp GT0PFsRaSFDkFJN1EMHfESQwCQPjhl2ETRGgGGC4QG T3BJIoMTDxTLBpSYlcUAIsDLD1Tgm4KUPcHDHaVR2EIxIpYDUhBUP6KTEnCTXjTYCfvc7BPYHtPSV0QO VsFiVkQHIiWFGyCKgtAEGqJZT5QTh0PYZxQNPiVM7YBeYsFJFxTWR9BeHsXIYsIPLbxm4MHALjCYC4Ni p2JwTvWUFwNNDsCTjkOSKqDCD3QjN4BUTvPKXbJA6E ZhMkWQWyWHo0GxvxLWCzYPSwlv1XKUMiPFZ5JSvrEVAtNZOuGPYsRMzoOEUyCKX4XYP6XDTiZOPrVM0D XqMnYWgiKESEJtl8GYroL0u0BEUmYk6AC7Eil3LmQyPmMZNEWLctFE7bbgDiFESxTk6EJ1dGDor8WZLo EDD2WqGiNqU4KmMbCWYzFqKqJMFbLudaTDinCA6bIZ StT2H8CUwiROVdAwRnCdZkH2LzZeY4MVAnO4R7GXBfIhIqWV3UMt6KIkS2CMG4ySXkZg2YBRokLPLQKa QyYD3DDHh= ID Date Data Source [id number] 04/10/2020 02:35:15 PM EDT [facility] Name Value Range Interpretation Code Description Data Sheba rce(s) Supporting Document(s) Progress Note [facility] BXADPw1vAnMCKnFt50/ENDxiANDub2AbDWvxFEp7RUhdPBIzO9TqPPT0oF5uRYH1EUgSPvOdJkAbJKDm lbm [file] Rg4QYvM1PXR1gLUmZh0NTCliCWGQQcWeKL1WQAo= Procedure Social History Code Duration Value Status Description Data Source(s ) Smoking 09/23/2020 12:00:00 AM EST Never Smoker completed Never S moker eCW1 ([facility]) Smoking 09/23/2020 12:00:00 AM EST Never Smoker completed Never S moker eCW1 ([facility]) Smoking 09/03/2020 12:00:00 AM EST Never Smoker completed Never S moker eCW1 ([facility]) Alcohol intake 05/21/2020 12:00:00 AM EDT Current non-d maggi of alcohol (finding) completed Current non-drinker of alcohol (finding) [facility] Tobacco use and exposure 05/21/2020 12:00:00 AM EDT Never used co mpleted Never used [facility] Smoking 05/21/2020 12:00:00 AM EDT Never smoker completed Never s [facility] Alcohol intake 04/10/2020 12:00:00 AM EDT Current non-d maggi of alcohol (finding) completed Current non-drinker of alcohol (finding) [facility] Vital Signs ID Date Data Source UNK Name Value Range Interpretation Code Description Data Source(s) Systolic blood pressure 158 mm[Hg] 158 mm[Hg] M EDENT ([facility]) RT Arm Systolic blood pressure 144 mm[Hg] 144 mm[Hg] M EDENT ([facility]) Diastolic blood pressure 84 mm[Hg] 84 mm[Hg] MEDENT ([facility]) Heart rate 68 /min 68 /min MEDENT ([facility]) Body height 58.50 [in_i] 58.50 [in_i] MED[facility] ([facility]) " Body weight 226.38 [lb_av] 226.38 [lb_av] MEDEN T ([facility]) Body mass index (BMI) [Ratio] 46.5 kg/m2 46.5 k g/m2 MEDENT ([facility]) Diastolic blood pressure 82 mm[Hg] 82 mm[Hg] MEDENT ([facility]) RT Arm Body weight 218.8 [lb_av] 218.8 [lb_av] W1 ([facility]) Body weight 99.2 kg 99.2 kg W1 ([facility]) Body height 59 [in_i] 59 [in_i] eCW1 ([facility]) Body mass index (BMI) [Ratio] 44.19 kg/m2 44.19 kg/m2 [facility] ([facility]) Heart rate 86 /min 86 /min eCW1 ([facility]) Respiratory rate 18 /min 18 /min eCW1 ([facility]) Body temperature 96.1 [degF] 96.1 [degF] eCW1 ( [facility]) Systolic blood pressure 122 mm[Hg] 122 mm[Hg] e CW1 ([facility]) Diastolic blood pressure 62 mm[Hg] 62 mm[Hg] eCW1 ([facility]) Systolic blood pressure 148 mm[Hg] 148 mm[Hg] M EDENT ([facility]) RT Arm Heart rate 60 /min 60 /min MEDENT ([facility]) Body height 58.50 [in_i] 58.50 [in_i] MEDENT ([facility]) 4'10.50" Body weight 219.00 [lb_av] 219.00 [lb_av] MEDEN T ([facility]) Diastolic blood pressure 86 mm[Hg] 86 mm[Hg] MEDENT ([facility]) Body mass index (BMI) [Ratio] 45.0 kg/m2 45.0 k g/m2 MEDENT ([facility]) Diastolic blood pressure 76 mm[Hg] 76 mm[Hg] MEDENT ([facility]) RT Arm Systolic blood pressure 130 mm[Hg] 130 mm[Hg] M EDENT ([facility]) Body weight 216.6 [lb_av] 216.6 [lb_av] eCW1 ([facility]) Body weight 98.2 kg 98.2 kg W1 ([facility]) Heart rate 87 /min 87 /min eCW1 ([facility]) Body temperature 96.7 [degF] 96.7 [degF] eCW1 ( [facility]) Respiratory rate 18 /min 18 /min eCW1 ([facility]) Body height 59 [in_i] 59 [in_i] eCW1 ([facility]) Body mass index (BMI) [Ratio] 43.74 kg/m2 43.74 kg/m2 W1 ([facility]) Diastolic blood pressure 68 mm[Hg] 68 mm[Hg] eCW1 ([facility]) Systolic blood pressure 126 mm[Hg] 126 mm[Hg] e CW1 ([facility]) Body mass index (BMI) [Ratio] 44.2 kg/m2 44.2 k g/m2 MEDENT ([facility]) Systolic blood pressure 122 mm[Hg] 122 mm[Hg] M EDENT ([facility]) RT Arm Diastolic blood pressure 82 mm[Hg] 82 mm[Hg] MEDENT ([facility]) RT Arm Heart rate 76 /min 76 /min MEDENT ([facility]) Body height 58.50 [in_i] 58.50 [in_i] MEDENT ( [facility]) '10.50" Body weight 215.38 [lb_av] 215.38 [lb_av] AMINAHEN T ([facility]) Heart rate 56 /min 56 /min [facility] ([facility]) Diastolic blood pressure 60 mm[Hg] 60 mm[Hg] [facility] ([facility]) RT Arm Systolic blood pressure 140 mm[Hg] 140 mm[Hg] M [facility] ([facility]) Systolic blood pressure 164 mm[Hg] 164 mm[Hg] M [facility] ([facility]) RT Arm Diastolic blood pressure 70 mm[Hg] 70 mm[Hg] [facility] ([facility]) Body height 58.50 [in_i] 58.50 [in_i] [facility] ( [facility] 4'10.50" Body mass index (BMI) [Ratio] 44.8 kg/m2 44.8 k g/m2 [facility] ([facility]) Body weight 218.00 [lb_av] 218.00 [lb_av] KATLYN Hand ([facility]) Patient Treatment Plan of Care Planned Activity Planned Date Details Description Data Source (s) Hydroxychloroquine Sulfate 200 MG Oral Tablet [[place]] 09/03/2020 12:00:00 AM EST eCW1 ([facility]) Hydroxychloroquine Sulfate 200 MG Oral Tablet [[place]] 09/03/2020 12:00:00 AM EST eCW1 ([facility]) Hydroxychloroquine Sulfate 200 MG Oral Tablet [[place]] 09/03/2020 12:00:00 AM EST eCW1 ([facility]) Mupirocin 0.02 MG/MG Topical Ointment 05/21/2020 11:00:00 AM [facility] Famotidine 40 MG Oral Tablet 05/12/2020 12:00:00 AM [facility]
--- OUTSIDE RECORDS SUMMARY | 2021-05-30 16:15 | CCD | Continuity of Care Document ---
Author Author Dana SIMS DPM Organization Unknown Address [address] [place] [address], [address] [place] [address] Phone [phone] Care Team Providers Care Core Inspector Name Role Phone Anna Kinney M.D. [phone] Problems Active Problems Provider Date Peripheral vascular [...] 25mg Tablets Nirmal Mohan,Anna Vitamin D (Ergocalciferol) 99715Kwgi Capsules Nirmal Mohan,Anna Clobetasol Propionate 0.05% Cream Apply A Thin Layer To The Affected Area S Two Times A Day Unknown Hydroxychloroquine Sulfate 200mg T ablets Unknown Polymyxin B Sulfate/Trimethoprim Sulfate 73924-5.1Unit/ML-% Solution Instill 1 Drop In Both Eyes [...] Information Available Procedures Date Code Description Status 12/12/2020 62595 Debridement 6-10 Nails Electric Completed 12/12/2020 06322 Paring/Cut Benign Lesion 2 To 4 Completed Medical Devices Description No Information Available Encounters Description No Information Available Assessments Date Code Description Provider 12/12/2020 B35.1 Tinea unguium Jack Sims DPM 12/12/2020 I73.89 Other specified peripheral vascu lar diseases Jack Sims DPM 12/12/2020 L84 Corns and callosities Jack Sims DPM Plan of Treatment Future Appointment(s):* 06/16/2021 3:45 pm - Jack Sims DPM at [place] [facility] Functional Status Description No Information Available Mental Status Description No Information Available Referrals Description No Information Available
--- OUTSIDE RECORDS SUMMARY | 2021-05-30 16:15 | CCD | Continuity of Care Document ---
Author Author Dana SIMS DPM Organization Unknown Address [address] [place] [address], [facility] [address] [place] [address] Phone [phone] Care Team Providers Care Photo Finish Photographer Name Role Phone Anna Kinney M.D. [phone] Problems Active Problems Provider Date Peripheral vascular [...] 25mg Tablets Nirmal Mohan,Anna Vitamin D (Ergocalciferol) 48460Slar Capsules Nirmal Mohan,Anna Clobetasol Propionate 0.05% Cream Apply A Thin Layer To The Affected Area S Two Times A Day Unknown Hydroxychloroquine Sulfate 200mg T ablets Unknown Polymyxin B Sulfate/Trimethoprim Sulfate 25282-3.1Unit/ML-% Solution Instill 1 Drop In Both Eyes [...] Available Procedures Date Code Description Status 12/12/2020 48743 Debridement 6-10 Nails Electric Completed 12/12/2020 97573 Paring/Cut Benign Lesion 2 To 4 Completed Medical Devices Description No Information Available Encounters Description No Information Available Assessments Date Code Description Provider 12/12/2020 B35.1 Tinea unguium Jack Sims DPM 12/12/2020 I73.89 Other specified peripheral vascu lar diseases Jack Sims DPM 12/12/2020 L84 Corns and callosities Jack Sims DPM Plan of Treatment Future Appointment(s):* 06/16/2021 3:45 pm - Jack Sims DPM at [place] [facility] Functional Status Description No Information Available Mental Status Description No Information Available Referrals Description No Information Available
[2021-05-30 16:25] LABS: BASO % 0.1 % (0.0-1.0); HEMATOCRIT 23.4 % (36.0-47.0); HEMOGLOBIN 7.6 g/dl (12.0-15.5); LYMPH # 1.3 10^3/uL (1.5-5.0); LYMPH % 5.3 % (24.0-44.0); MEAN CORPUSCULAR HEMOGLOBIN 27.3 pg (27.0-33.0); MEAN CORPUSCULAR HGB CONC 32.5 g/dl (32.0-36.5); MEAN CORPUSCULAR VOLUME 84.2 fl (80.0-96.0); MONO # 0.9 10^3/uL (0.0-0.8); MONO % 3.5 % (2.0-8.0); NEUTROPHILS # 21.5 10^3/uL (1.5-8.5); NEUTROPHILS % 86.8 % (36.0-66.0); RED BLOOD COUNT 2.78 10^6/uL (4.00-5.40); WHITE BLOOD COUNT 24.8 10^3/uL (4.0-10.0)
[2021-05-30 16:26] LABS: PLATELET COUNT, AUTOMATED 468 10^3/uL (150-450)
[2021-05-30 16:30] LABS: INR 1.08; PROTHROMBIN TIME 14.4 SECONDS (12.7-14.5)
[2021-05-30] MEDS ORDERED: LevoFLOXacin IV 750 MG in IV 1 EA IV ONE (16:40)
[2021-05-30] MEDS ORDERED: NS 2,790 ML in IV 1 EA IV ONE (16:40)
[2021-05-30 16:46] LABS: CALCIUM LEVEL 7.9 MG/DL (8.8-10.2); CK-MB VALUE MASS 7.8 NG/ML (<3.6); CREATININE FOR GFR 1.81 MG/DL (0.55-1.30); FREE T4 1.27 NG/DL (0.76-1.46); GLOMERULAR FILTRATION RATE 29.6 (>45); POTASSIUM SERUM 4.6 MEQ/L (3.5-5.1); THYROID STIMULATING HORMONE 1.09 uIU/ML (0.358-3.740); TROPONIN I 0.17 NG/ML (< 0.10)
--- NOTE | 2021-05-30 16:53 | REP ---
INDICATION: trauma. COMPARISON: None. TECHNIQUE: 5 mm contiguous transaxial sections were obtained from the skull base to the cerebral convexities. FINDINGS: The ventricles and sulci are consistent with the patient's age. There are no extra-axial fluid collections. There is no mass effect. The deep cerebral white matter is consistent with the patient's age. The orbital and petrous structures, cerebellopontine angles, and posterior fossa are unremarkable. The sella turcica, cavernous, and paracavernous structures are essentially unremarkable. The visualized portions of the paranasal sinuses shows soft tissue densities in the imaged portion of the left maxillary sinus and in multiple left ethmoid bulla. Soft tissue density is also seen in the sphenoid sinuses. The right mastoid air cells are clear. There is evidence of chronic change seen in the left mastoid air cells which appear chronically opacified. Images of the skull base show no gross abnormality. IMPRESSION: Paranasal sinus soft tissue densities and other chronic changes as described above. There is no evidence of acute intracranial pathology. <Electronically signed by Iban Sierra > 05/30/21 [id number]
[2021-05-30] MEDS ORDERED: PRED10TA2 PO (17:05)
--- NOTE | 2021-05-30 17:23 | REP ---
INDICATION: leukocytosis. COMPARISON: 05/20/2021 the latest prior also portable TECHNIQUE: Portable FINDINGS: The technique utilized in obtaining the radiograph has magnified the cardiac silhouette and attenuated the interstitial markings. The cardiomediastinal silhouette is unchanged. The bilateral airspace opacities have improved. There are no new abnormal opacities. The pleural angles remain sharp. IMPRESSION: Improved lung olson <Electronically signed by Iban Sierra > 05/30/21 [id number]
[2021-05-30] MEDS ORDERED: MIRALAX *UNIT DOSE* 17GM PACKET PO PRN (17:40)
--- OUTSIDE RECORDS SUMMARY | 2021-05-30 18:20 | CCD ---
Author Author [facility] Organization [facility] Address Unknown Phone Unavailable Care Team Providers Care Hyperion Developer Name Role Phone Asad SIMS DPM Unavailable [...] Unavailable Rosas Fonseca MD Unavailable Unavailable Rosas Fonseac MD Unavailable Unavailable Rosas Fonseca MD Unavailable [...] is protected by Article 27-F of the [facility] Public Health law. If you continue you may have access to information: Regarding HIV / AIDS; Provided by facilities licensed or operated by the [facility] Office of Mental Health; or Provided by the [facility] Office for People With Developmental Disabilities. If such information is present, then the following [facility] mandated warning applies: This information has [...] law may result in a fine or senior living sentence or both. A general authorization for [...] of mental illness Unknown Male Problem MEDENT ([facility]) Unknown Male Problem MEDENT ([facility] () - at 70 Unknown Unknown Problem MEDENT ([facility]) Encounters Encounter Providers Location Date Indications Data Source(s ) Office Visit Attender: GUERRERO BURNHAM Physical Therapy 2020 10:30:00 AM EDT MEDENT ([facility]) Outpatient Attender: GUERRERO BURNHAM Physical Therapy 05/04/2021 0 4:00:00 PM EDT MEDENT ([facility]) [place] [address] [facility] [address] 04/08/2021 12:00:00 AM EDT eCW1 ([facility]) Outpatient Attender: Milagro Taylor 10:45:00 AM EDT MEDENT ([facility] ) Office Visit, Est Pt., Level 4 PC [address] [place] [address] 09/23/2020 12:00:00 AM EST eCW1 ([facility]) Outpatient Attender: Milagro Taylor 08:45:00 AM EST MEDENT ([facility] ) Office Visit, Est Pt., Level [address] PC [address] [place] [address] 09/03/2020 12:00:00 AM EST eCW1 ([facility]) Outpatient Attender: Milagro Taylor 09:30:00 AM EST MEDENT ([facility] ) Outpatient Attender: Jelly Blackmon MD 07/09/2020 12:00:00 AM [facility] Outpatient Attender: Jelly Blackmon MDReferrer: YAMINI SIMS DPM [id number] 05/21/2020 12:00:00 AM EDT - 05/21/2020 11:24:05 AM EDT Non-pressure chronic ulcer of left calf with fat layer exposed [facility] Non-pressure chronic ulcer of left calf with fat layer exposed Outpatient Attender: Milagro Taylor 10:30:00 AM EDT MEDENT ([facility] ) Outpatient Attender: Jelly Blackmon MDReferrer: YAMINI SIMS DPM [id number] 04/10/2020 12:00:00 AM EDT - 04/10/2020 11:49:05 AM [facility] Outpatient Attender: Jelly Blackmon MD 04/03/2020 12:00:00 AM [facility] Medications Medication Brand Name Start Date [...] 05/05/2021 12:00:00 AM EDT active MEDENT ([facility] ) 1,250 mcg (50,000 unit) [...] EST a ctive Plaquenil 200 MG eCW1 ([facility]) Hydroxychloroquine Sulfate 200 MG Oral Tablet [Plaquen il] Plaquenil 200 MG Plaquenil 200 MG 09/03/2020 12:00:00 AM EST a ctive Plaquenil 200 MG eCW1 ([facility]) Hydroxychloroquine Sulfate 200 MG Oral Tablet [Plaquen il] Plaquenil 200 MG Plaquenil 200 MG 09/03/2020 12:00:00 AM EST a ctive Plaquenil 200 MG eCW1 ([facility]) 20 mg 08/15/2020 12:00:00 AM EST [...] dose
Apply to affected area as per [facility] instruction
[facility] Ulcer of calf, right, with fat layer [...] active Take 40 mg by mouth daily [facility] 25 mg 03/28/2020 12:00:00 AM EDT tablet [...] type / Coverage type Policy ID Covered green party ID Covered green party's relationship to werner Policy Werner Plan Information [facility] [place] FEDERAL [id number] SP [id number] [facility] Federal Plan Commercial [id number] Self [id number] EXCELLUS [facility] FEDERAL [id number] SP [id number] EXCELLUS [id number] Self [id number] [facility] FEDERAL EMPLOYEE PROGRAM [id number] SP [id number] [facility] FEDERAL EMPLOYEE PROGRAM [id number] SP [id number] [employer] Federal Employee Program J [id number] SELF [id number] [facility] Plan Commercial [id number] Self [id number] Medicare [place] Medigap Part B [id number] Self [id number] Medicare [place] Medigap Part B [id number] Self [id number] [facility] O G Self Medicare [place] Medigap Part B [id number] Self [id number] [employer] Commercial [id number] Self [id number] [employer] Commercial [id number] [id number] Self [employer] Commercial [id number] Self [facility] Commercial [id number] Self ANS-Medicare Part B [id number] ANS-Medicare Part B [id number] ANS-Medicare Part B [id number] TODAYS OPTIONS [id number] ANS-Medicare Part B [id number] [facility] Part B [id number] Self [id number] Today's Option Commercial [id number] Self [id number] [facility]-Medicare Part B [id number] Today's Option Commercial [id number] [facility] [id number] MEDICARE [id number] SP [id number] [facility] Commercial [id number] [id number] Self [id number] WELLCARE [id number] SP [id number] [facility] Medigap Part B [id number] [id number] .[id number] Self [id number] [facility] [id number] [id number] .[id number] Self [id number] Medicare [place] Medicare Primary [id number] [id number] Self [id number] [facility] Health Maintenance Organization (HMO) [id number] Self [id number] BS [place] [facility] B [id number] S [id number] [facility] Health Maintenance Organization (HMO) [id number] [id number] Self [id number] BS [facility] Health Maintenance Organization ([facility]) [id number] [id number] Self [id number] BS [facility] Health Maintenance [facility] ([facility]) [id number] [id number] Self [id number] BS [place] [employer] B [id number] S [id number] BS [facility] Health Maintenance Organization ([facility]) [id number] [id number] Self [id number] BS [facility] Health Maintenance [facility] ([facility]) [id number] S elf [id number] [employer] [place] FEDERAL PLN O [id number] S [id number] BS [facility] Medigap Part B [id number] [id number] .2809.72390.0 Self [id number] [place] Medigap Part B [id number] Self [id number] [place] Medigap Part B [id number] Self [id number] [employer] Commercial [id number] Self [id number] [place] Medigap Part B [id number] Self [id number] [employer] Commercial [id number] [id number] Self [id number] [place] Medigap Part B [id number] Self [id number] MEDICARE [id number] [place] Medigap Part B [id number] Self [id number] [place] Medigap Part B [id number] Self [id number] TODAYS OPTIONS [id number] MEDICARE [id number] A ANSI-Medicare Part B [id number] Todays Option Medicare Commercial [id number] Self [id number] [place] Commercial [id number] Self [id number] ANSI-Medicare Part B [id number] ANSI-Medicare Part B [id number] Problems, Conditions, and Diagnoses Code Display Name Description Problem Type Effective Dates Data Source(s) L30.9 Dermatitis, unspecified Dermatitis, unspecified Diagno sis 05/21/2020 10:00:09 AM [facility] L97.212 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 Diagnosis 05/21/2020 10:00:09 AM [facility] L97.222 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 Diagnosis 05/21/2020 10:00:09 AM [facility] M19.90 [id number] Inflammatory arthritis Problem 09/23/2020 12 :00:00 AM EST eCW1 ([facility]) M32.9 [id number] History of systemic lupus erythematosus P roblem 09/23/2020 12:00:00 AM EST eCW1 ([facility]) M35.00 [id number] Sicca syndrome Problem 09/03/2020 12:00:00 A M EST eCW1 ([facility]) M35.01 [id number] Sjogren's syndrome with keratoconjunctivi tis sicca Problem 09/03/2020 12:00:00 AM EST eCW1 ([facility]) M89.49 [id number] Primary osteoarthritis involving multiple joints Problem 09/03/2020 12:00:00 AM EST eCW1 ([facility]) Surgeries/Procedures Procedure Description Date Indications Data Source(s) RADEX FOREARM 2 VIEWS 05/15/2021 12:00:00 AM EDT MEDENT ([facility] ) FX Ulnar Shaft W/O Manipulation 05/04/2021 12:00:00 AM EDT MEDENT ([facility] ) X-Ray Elbow Ap & Lateral 2 Views 05/04/2021 12:00:00 A M EDT MEDENT ([facility] ) RADEX FOREARM 2 VIEWS 05/04/2021 12:00:00 AM EDT MEDENT ([facility] ) OFFICE OUTPATIENT NEW 45 MINUTES 05/04/2021 12:00:00 A M EDT MEDENT ([facility] ) RADEX ELBOW COMPLETE MINIMUM 3 VIEWS 05/04/2021 12:00: 00 AM EDT MEDENT ([facility]) PARING/CUTTING BENIGN HYPERKERATOTIC LESION 2-4 2020 [...] of calf, right, with fat layer exposed [facility] Dermatitis Lymphedema of both lower extremities Ulcer of calf, left, with fat layer expo sed Ulcer of calf, right, with fat layer exp osed PARING/CUTTING BENIGN HYPERKERATOTIC LESION 2-4 2019 12:00:00 AM EDT MEDENT ([facility] DEBRIDEMENT NAIL ANY METHOD 6/> 05/02/2020 12:00:00 AM EDT MEDENT ([facility] Results ID Date Data Source [id number] 05/18/2021 03:39:00 PM EDT [facility] Name Value Range Interpretation Code Description Data Sheba rce(s) Supporting Document(s) Respiratory pathogens identified [Type] in Nasopharynx by Probe and target amplification method SARS-CoV-2 (COVID 19) [facility] This lab was ordered by [facility] a nd reported by [facility]. ID Date Data Source [id number] 05/18/2021 03:39:00 PM EDT MEDENT ([facility]) Name Value Range Interpretation Code Description Data Sheba rce(s) Supporting Document(s) Respiratory Panel Laboratory test result [email or web address] This respiratory PCR panel detects Influ pho[place] [...] SARS-CoV-2 (COVID 19) ID Date Data Source [id number] 05/18/2021 03:39:00 PM EDT MEDENT ([facility]) Name Value Range Interpretation Code Description Data Sheba rce(s) Supporting Document(s) Glucose, Fasting 109 mg/dL 70-100 MEDENT ([facility]) Blood Urea Nitrogen 51 mg/dL 7-18 MED[facility] ([email or web address] Creatinine For GFR 2.17 mg/dL 0.55-1.30 MEDENT ([facility]) Glomerular Filtration Rate 24.0 MED ENT ([facility]) <content>Units are mL/min/1.73 m2</content>
<content></content>
<content>Chronic Kidney Disease Staging per NKF:</content>
<content></content>
<content>Stage I & II GFR >=60 Normal to Mildly Decreased</content>
<content>Stage III GFR 30- 59 Moderately Decreased</content>
<content>Stage IV GFR 15-29 Severely Decreased</content>
<content>Stage V GFR <15 Very Little GFR Left</content>
<content>ESRD GFR <15 on BODY TECHNICIAN</content>
<content></content> Sodium Level 136 meq/L 136-145 MEDENT ([facility]) Potassium Serum 3.5 meq/L 3.5-5.1 MEDENT ([facility]) Chloride Level 104 meq/L 98-107 MEDENT ([facility]) Carbon Dioxide Level 19 meq/L 21-32 MEDENT ([facility]) Anion Gap 13 meq/L 8-16 [facility] Calcium Level 8.0 mg/dL 8.8-10.2 MEDENT ([facility]) Alt/SGPT 19 U/L 12-78 MED[facility] ([facility] Ast/Sgot 43 U/L 7-37 MEDENT ([facility] Bilirubin,Total 0.3 mg/dL 0.2-1.0 MEDENT ([facility]) Alkaline Phosphatase 68 U/L 45-117 MEDENT ([email or web address] Albumin 2.8 GM/DL 3.2-5.2 MEDENT ([facility] Total Protein 6.9 GM/DL 6.4-8.2 MEDENT ([facility]) Albumin/Globulin Ratio 0.7 1.2-2.2 MEDENT ([facility]) ID Date Data Source [id number] 05/18/2021 03:39:00 PM EDT MEDENT ([facility]) Name Value Range Interpretation Code Description Data Sheba rce(s) Supporting Document(s) White Blood Count 9.3 10 4.0-10.0 MEDENT ([facility]) Red Blood Count 3.52 10 4.00-5.40 MEDENT ([facility]) Hemoglobin 9.6 g/dL 12.0-15.5 [facility] Hematocrit 30.4 % 36.0-47.0 MEDENT ([facility]) Mean Corpuscular Volume 86.4 fl 80.0-96.0 MEDENT ([facility]) Mean Corpuscular Hemoglobin 27.3 pg 27.0-33.0 ME DENT ([facility]) Red Cell Distribution Width 15.1 % 11.5-14.5 ME DENT ([facility]) Mean Corpuscular HGB Conc 31.6 g/dL 32.0-36.5 MEDE NT ([facility]) Neutrophils % 90.7 % 36.0-66.0 MEDENT ([facility]) Platelet Count, Automated 216 10 150-450 MEDE NT ([facility]) Lymph % 4.4 % 24.0-44.0 [facility] Eddy % 4.3 % 2.0-8.0 [facility] Eos % 0.0 % 0.0-3.0 [facility] Immature Granulocyte % 0.6 % 0-3.0 MEDENT ([facility]) Baso % 0.0 % 0.0-1.0 [facility] Nucleated Red Blood Cell % 0.0 % 0-0 MED ENT ([facility]) Neutrophils # 8.4 10 1.5-8.5 MEDENT ([facility]) Eddy # 0.4 10 0.0-0.8 [facility] Lymph # 0.4 10 1.5-5.0 [facility] Eos # 0.0 10 0.0-0.5 [facility]) Baso # 0.0 10 0.0-0.2 [facility]) ID Date Data Source NAYELI TITER & PATTERN 09/03/2020 12:00:00 AM EST eCW1 ([facility]) Name Value Range Interpretation Code Description Data Sheba rce(s) Supporting Document(s) Positive . eCW1 ([facility]) ID Date Data Source ANTI-SJOGRENS A&B ANTIBODIES 09/03/2020 12:00:00 AM EST eCW1 ([facility]) Name Value Range Interpretation Code Description Data Sheba rce(s) Supporting Document(s) <0.2 0.0-0.9 eCW1 ([facility]) <0.2 0.0-0.9 eCW1 ([facility]) ID Date Data Source CYCLIC CITRULLINATED PEPTIDE 09/03/2020 12:00:00 AM EST eCW1 ([facility]) Name Value Range Interpretation Code Description Data Sheba rce(s) Supporting Document(s) 10 0-19 eCW1 ([facility]) ID Date Data Source HEPATITIS B CORE ANTIBODY IGG 09/03/2020 12:00:00 AM EST eCW 1 ([facility]) Name Value Range Interpretation Code Description Data Sheba rce(s) Supporting Document(s) Negative Negative eCW1 ([facility]) ID Date Data Source ANTI DOUBLE STRAND DNA TREY 09/03/2020 12:00:00 AM EST eCW1 ( [facility]) Name Value Range Interpretation Code Description Data Sheba rce(s) Supporting Document(s) eCW1 ([facility]) ID Date Data Source RHEUMATOID FACTOR QUANT 09/03/2020 12:00:00 AM EST eCW1 [facility] Name Value Range Interpretation Code Description Data Sheba rce(s) Supporting Document(s) < 10.0 <15.0 eCW1 ([facility]) ID Date Data Source URIC ACID 09/03/2020 12:00:00 AM EST eCW1 ([facility]) Name Value Range Interpretation Code Description Data Sheba rce(s) Supporting Document(s) 7.6 2.6-6.0 eCW1 ([facility]) ID Date Data Source HEPATITIS C ANTIBODY INDEX 09/03/2020 12:00:00 AM EST eCW1 ( [facility]) Name Value Range Interpretation Code Description Data Sheba rce(s) Supporting Document(s) < 0.0 <0.8 eCW1 ([facility]) ID Date Data Source ERYTHROCYTE SEDIMENTATION RATE 09/03/2020 12:00:00 AM EST eC W1 ([facility]) Name Value Range Interpretation Code Description Data Sheba rce(s) Supporting Document(s) 60 0-30 eCW1 ([facility]) ID Date Data Source HEPATITIS B SURFACE ANTIGEN 09/03/2020 12:00:00 AM EST eCW1 ([facility]) Name Value Range Interpretation Code Description Data Sheba rce(s) Supporting Document(s) NEGATIVE NEGATIVE eCW1 ([facility]) ID Date Data Source C REACTIVE PROTEIN QUANTITATIV (At [facility]) 09/03/2020 12:00 :00 AM EST eCW1 ([facility]) Name Value Range Interpretation Code Description Data Sheba rce(s) Supporting Document(s) 0.36 0.00-0.30 eCW1 ([facility]) ID Date Data Source Comprehensive Metabolic Profile (CMP) 09/03/2020 12:00:00 AM EST eCW1 ([facility]) Name Value Range Interpretation Code Description Data Sheba rce(s) Supporting Document(s) 99 70-100 eCW1 ([facility]) 45 7-18 eCW1 ([facility]) 137 136-145 eCW1 ([facility]) 1.46 0.55-1.30 eCW1 ([facility]) 38.0 >45 eCW1 ([facility]) 4.6 3.5-5.1 eCW1 ([facility]) 100 98-107 eCW1 ([facility]) 18 12-78 eCW1 ([facility]) 9.8 8.8-10.2 eCW1 ([facility]) 16 7-37 eCW1 ([facility]) 28 21-32 eCW1 ([facility]) 74 45-117 eCW1 ([facility]) 4.0 3.2-5.2 eCW1 ([facility]) 7.7 6.4-8.2 eCW1 ([facility]) 0.3 0.2-1.0 eCW1 ([facility]) 1.1 1.2-2.2 eCW1 ([facility]) ID Date Data Source COMPLEMENT C4 09/03/2020 12:00:00 AM EST eCW1 ([facility]) Name Value Range Interpretation Code Description Data Sheba rce(s) Supporting Document(s) 27 10-40 eCW1 ([facility]) ID Date Data Source COMPLEMENT C3 09/03/2020 12:00:00 AM EST eCW1 ([facility]) Name Value Range Interpretation Code Description Data Sheba rce(s) Supporting Document(s) 129 90-180 eCW1 ([facility]) ID Date Data Source [id number] 05/21/2020 05:40:59 PM [facility] Name Value Range Interpretation Code Description Data Sheba rce(s) Supporting Document(s) Progress Note [facility] MBYVQn9wBxUCMkUv11/IDTxoZHTab8MmFYkaXDd6QBkeRTDdU1OvHXE5pU8gVDR5ISnAQgUdXyEjPCU8 [facility] [file] AxOTgxNyAwMDAwMCBuDQowMDAwMDIwMDIzIDAwMDAw CB4WIbKhDUPkSkF9KRQnSOWaWLGiag0KICXkNTAjFJM6HLZxVTSwJNXuXIzoJNMrSSGhOoReEWDoRGPi JO9CXpIxTNTzUzWkEaBlNIOsJSPvkj4VOJVkGMZnYrHkKIDdSGJrAMNmZBjdCPAsVPMjErYeHPBoXQFg SR5DJsGyQJMzVSX9PHGiEDKnISNfhl8IWMXpZQM3HM U0QRAtGMZoSTGcYWezWRTuUSI9Psb4KSPrPWKcGB9MZpIdGSRgHLO6YIOgFMYyFLEgkd0TIITuNTX6XG QgGaUcUUCfSKXySUrqQJNpUHR6WJm8FGMtYLUmBX0KEzOwKAJzQRU9QpIyOZRzZZTosa5XUPIxWRN3Fk v1SyCoWEUdNMYzCSjqQICgZLQ1VkA1SJWqQSMgUR6W XsPpZPUdZVu8RtxiOGIvKWOncp5GGYWkIYF4KHymNRUlSIHwUTQtDNnyKUEkQYB5GGI5ATWxSCYfMY0L ClMwMSkbYODKQxc0KXieU7z0WMCdZj4KE7Lzo9GaJoOtSIYHASmdPO6clfNjKNDeZe4JA5zSOyz3JZVd MKP7XzNvViP2SvLsLDXaFeLyXIUpHhjyEVrnPO9mCE YnM5Z4CYylQMOeAqPrHrAxD9ZsLjS4ABDwX1S5OEJzRxAqCK2WUt3HTnI6KDT3gVYjCm7CPFsbJPMEAs HcMW2HXNw= ID Date Data Source [id number] 04/10/2020 02:35:15 PM EDT [facility] Name Value Range Interpretation Code Description Data Sheba rce(s) Supporting Document(s) Progress Note [facility] CABZGd4vSoGTTwVk54/OCHhyCKTwv8OnMBvtBZb8ZKahHUWgD9RdKBS2eM0cQUI4WDaMPyYdCxFoHTWs lbm [file] ICAgICAgICAgICAgICAgICAgICAgICAgICAgICAgICAgICAgICAgICAgICAgICAgICAgICAgICAgICAg ICAgICAgICAgICAgICAgICAgICAgICAgICAgDQogICAgICAgICAgICAgICAgICAgICAgICAgICAgICAg ICAgICAgICAgICAgICAgICAgICAgICAgICAgICAgIC AgICAgICAgICAgICAgICAgICAgICAgICAgICAgICAgICAgICAgDQogICAgICAgICAgICAgICAgICAgIC AgICAgICAgICAgICAgICAgICAgICAgICAgICAgICAgICAgICAgICAgICAgICAgICAgICAgICAgICAgIC AgICAgICAgICAgICAgICAgICAgDQogICAgICAgICAg ICAgICAgICAgICAgICAgICAgICAgICAgICAgICAgICAgICAgICAgICAgICAgICAgICAgICAgICAgICAg ICAgICAgICAgICAgICAgICAgICAgICAgICAgICAgDQogICAgICAgICAgICAgICAgICAgICAgICAgICAg ICAgICAgICAgICAgICAgICAgICAgICAgICAgICAgIC AgICAgICAgICAgICAgICAgICAgICAgICAgICAgICAgICAgICAgICAgDQogICAgICAgICAgICAgICAgIC AgICAgICAgICAgICAgICAgICAgICAgICAgICAgICAgICAgICAgICAgICAgICAgICAgICAgICAgICAgIC AgICAgICAgICAgICAgICAgICAgICAgDQogICAgICAg ICAgICAgICAgICAgICAgICAgICAgICAgICAgICAgICAgICAgICAgICAgICAgICAgICAgICAgICAgICAg ICAgICAgICAgICAgICAgICAgICAgICAgICAgICAgICAgDQogICAgICAgICAgICAgICAgICAgICAgICAg ICAgICAgICAgICAgICAgICAgICAgICAgICAgICAgIC AgICAgICAgICAgICAgICAgICAgICAgICAgICAgICAgICAgICAgICAgICAgDQogICAgICAgICAgICAgIC AgICAgICAgICAgICAgICAgICAgICAgICAgICAgICAgICAgICAgICAgICAgICAgICAgICAgICAgICAgIC AgICAgICAgICAgICAgICAgICAgICAgICAgDQogICAg ICAgICAgICAgICAgICAgICAgICAgICAgICAgICAgICAgICAgICAgICAgICAgICAgICAgICAgICAgICAg CUMgTHBiIRSyUXQpJPIzOJLdYNSuTNGjHQEvWONvBTMsMXWjBWm4K4bgBWJyXCJnBI2iCKt6Te9+DQoN KmTfMHM3smOlaZ7RUC3vt4XlEFfnPGKpz6JnCZn7HM 6RHLGlOHqbAZ3DXQlreu9FNQWfKULbhCXZf7shXxXmECX0MLNtGoycSP3ZLURkD6wrigIyEFZkPPWOKE smFBSDDQkjEEHNOKLjHMWtRxAoZyWnHHTqQCIoUYJCZC0EFdZtT7KphV53SONYBa3+DQplbmRvYmoNCj XwERQqc5FiEUs4HD8EZNYeZcrzg2MlTeXvCMDKTCbu [id number]XQ2VLp3FDzTtUU8vue8KPkVfPIHpWuuELcn4HPygFT6DeFHj MInHpj6tvhXeibSPf4HouaPtlNEMu97cR8QjWCPLf6NsZS2oOP8MQYH6PXvaSp4qLUFvRCEfOhZrSMCB JH3BRFFeJNQkqJMaKCSkNVGMSR2NLRfuLRC4PSHias UerVJbFSjcGX8VULLfasBdOaFyFUOSOHe+Mi0UNX9py3GmJKopBBNfSG9upt8TZYlDPsSpX3V0eDOwS8 Q0HCmeGk9PKOQiUVSyOyMsIQCOSLupKR6FJT4qppB1BI1RzYDzTAIgCFYttCLtQId1X78krVXmNKvtLY 0KICA+Bob+Pw7ZTVCkMDQjLNVmLsOqSPKUQbKzG2Kf U7FCd8KcO6QmOG58pVlhnzWqHAoeRK2PSU9hPLWtACQYOY4DsXBvyJ6lllRcFlDeYXWMCkYdT20sjWAx JMQiWSVhLHFjRa7OUNQuW5FxsoXzoMujyhJySTYqZCEAGD2BGKtxilOydXYzwYbqJF99wLimPV3ZJh7P UmIxER4jdh7RqEBkGa2AGINoEN4ISJDoQUDkARTzXW Y3GEJmTfKfUKkwVFEaLIWiXIS4IKFfEESyUY2YAiBuPRDtUOAsSiAdFDVyYVOfxu5LOOBxRLS5ZnyhOM MyKQOzVLZqEIheQHErITInDLL0NKCaWUOpUQ8QAmUkHVAbOCN2MIVwCWUtSGUrnn3TBGWlCKEiMuJ9Wl BmGBKmVFOrLPugMERhKBB8YhuqXEIlOGTwPP3PMtZb HIFtOAC2XlZzUWZaPJXygl7YXZNuMJXeOKF1MIAoRIIwHKUjQAcbCGNvGTK0IYuhQKMvXSUmBD8VOzMp KUVxHEC3PijlIFEuHSUead2PBTIoXBOqZop9HdRyJHJvPHMiJEuaYFUbOHT6IqX2KXNoSXRiPW9RGzXz USXyYSW5MGFiUCHvKLEoot2XJYQeNFTuLauyEOHdSN WbZRAdRKplMSOwAFU3TWA9IBCkRQQsAO0IHxTfFWIjONnlHIVvMWQvOSXipk0KPCIfAFAuCBQ0NtDyRB WyVUPuJQqdAOJyJQS8CSJ4ADIqDVFlGV8SVgUkUIYiCzP3PxEyQSEbTKVeev0GHAFeSREpZQGwAvZvIY GnRHKtDEajDBLcLXSsTFX5JUVdVTYeAZ8WBnPhTFDz CZT8FGwvMOWoDOPbsn7BSIXmSYC4NaG5DbFuACEsUJIjIZuwHGSaFLGyElqwTORlCJDyHU8LQlByFXTn XRV2QTlgFRHmBYMyup0XXYEeZCG3DqklDLGsTEDbCFKaDZdmMWLwJGW4Xhy5JQOcUTXjHC7LZaFjJYPx YRQ9QrYyUSJpHSBlmr8SPHAvTUD8SKL3IYWxNRTuWJ BiRDefCPZlQRK5EBUmNRQaJJBuER3ZApTqSTKtCCX4PvOjAAUpLVJwij4YHQWzYSX4VhFsLaVhFLOrQG PoAPiaFZAvPVU1OEFsQEFdVPGnGF3QEeBoAOehNJBRKlg8XEjjR2z8MRSwJE9WA9Wmf8RwZuJqMKJHHF wxAC9ybdNnECWsCd0WF2jGZes0ANF9UQAiCBPxWPI0 EOK9T9EeKCTkHQjnULCuIMdrHv7oWHFkMzxwBUR9GnWxGTf3LKllSEF0JtT5YFE7OPUiAbLiKcMnXI5B Xl5BTxN0RTT7lDFmVv7WTHxbSYWNUbLvNN0BCCa= Procedure Social History Code Duration Value Status Description Data Source(s ) Smoking 09/23/2020 12:00:00 AM EST Never Smoker completed Never S moker eCW1 ([facility]) Smoking 09/23/2020 12:00:00 AM EST Never Smoker completed Never S moker eCW1 ([facility]) Smoking 09/03/2020 12:00:00 AM EST Never Smoker completed Never S moker eCW1 ([facility]) Alcohol intake 05/21/2020 12:00:00 AM EDT Current non-d maggi of alcohol (finding) completed Current non-drinker of alcohol (finding) [facility] Tobacco use and exposure 05/21/2020 12:00:00 AM EDT Never used co mpleted Never used [facility] Smoking 05/21/2020 12:00:00 AM EDT Never smoker completed Never s [facility] Alcohol intake 04/10/2020 12:00:00 AM EDT Current non-d maggi of alcohol (finding) completed Current non-drinker of alcohol (finding) [facility] Vital Signs ID Date Data Source UNK Name Value Range Interpretation Code Description Data Source(s) Systolic blood pressure 158 mm[Hg] 158 mm[Hg] M EDENT ([facility]) RT Arm Systolic blood pressure 144 mm[Hg] 144 mm[Hg] M EDENT ([facility]) Diastolic blood pressure 84 mm[Hg] 84 mm[Hg] MEDENT ([facility]) Heart rate 68 /min 68 /min MEDENT ([facility]) Body height 58.50 [in_i] 58.50 [in_i] MEDENT ( [facility]) 4'10.50" Body weight 226.38 [lb_av] 226.38 [lb_av] MEDEN T ([facility]) Body mass index (BMI) [Ratio] 46.5 kg/m2 46.5 k g/m2 MEDENT ([facility]) Diastolic blood pressure 82 mm[Hg] 82 mm[Hg] MEDENT ([facility]) RT Arm Body weight 218.8 [lb_av] 218.8 [lb_av] eCW1 ([facility]) Body weight 99.2 kg 99.2 kg W1 ([facility]) Body height 59 [in_i] 59 [in_i] eCW1 ([facility]) Body mass index (BMI) [Ratio] 44.19 kg/m2 44.19 kg/m2 [facility] ([facility]) Heart rate 86 /min 86 /min eCW1 ([facility]) Respiratory rate 18 /min 18 /min eCW1 ([facility]) Body temperature 96.1 [degF] 96.1 [degF] eCW1 ( [facility]) Systolic blood pressure 122 mm[Hg] 122 mm[Hg] e CW1 ([facility]) Diastolic blood pressure 62 mm[Hg] 62 mm[Hg] eCW1 ([facility]) Systolic blood pressure 148 mm[Hg] 148 mm[Hg] M EDENT ([facility]) RT Arm Diastolic blood pressure 76 mm[Hg] 76 mm[Hg] MEDENT ([facility]) RT Arm Systolic blood pressure 130 mm[Hg] 130 mm[Hg] M EDENT ([facility]) Heart rate 60 /min 60 /min MEDENT ([facility]) Body height 58.50 [in_i] 58.50 [in_i] MEDENT ([facility]) 4'10.50" Body weight 219.00 [lb_av] 219.00 [lb_av] MEDEN T ([facility]) Body mass index (BMI) [Ratio] 45.0 kg/m2 45.0 k g/m2 MEDENT ([facility]) Diastolic blood pressure 86 mm[Hg] 86 mm[Hg] MEDENT ([facility]) Body weight 98.2 kg 98.2 kg eCW1 ([facility]) Heart rate 87 /min 87 /min eCW1 ([facility]) Respiratory rate 18 /min 18 /min eCW1 ([facility]) Body height 59 [in_i] 59 [in_i] eCW1 ([facility]) Body mass index (BMI) [Ratio] 43.74 kg/m2 43.74 kg/m2 W1 ([facility]) Body weight 216.6 [lb_av] 216.6 [lb_av] eCW1 ([facility]) Diastolic blood pressure 68 mm[Hg] 68 mm[Hg] eCW1 ([facility]) Body temperature 96.7 [degF] 96.7 [degF] eCW1 ( [facility]) Systolic blood pressure 126 mm[Hg] 126 mm[Hg] e CW1 ([facility]) Body mass index (BMI) [Ratio] 44.2 kg/m2 44.2 k g/m2 MEDENT ([facility]) Systolic blood pressure 122 mm[Hg] 122 mm[Hg] M EDENT ([facility]) RT Arm Diastolic blood pressure 82 mm[Hg] 82 mm[Hg] MEDENT ([facility]) RT Arm Heart rate 76 /min 76 /min MEDENT ([facility]) Body height 58.50 [in_i] 58.50 [in_i] MEDENT ([facility]) 4'10.50" Body weight 215.38 [lb_av] 215.38 [lb_av] MEDEN T ([facility]) Heart rate 56 /min 56 /min [facility] ([facility]) Body weight 218.00 [lb_av] 218.00 [lb_av] MEDEN T ([facility]) Diastolic blood pressure 60 mm[Hg] 60 mm[Hg] [facility] ([facility]) RT Arm Systolic blood pressure 140 mm[Hg] 140 [facility] Diastolic blood pressure 70 mm[Hg] 70 mm[Hg] [facility] ([facility]) Body height 58.50 [in_i] 58.50 [in_i] [facility] ( [facility]) 4'10.50" Body mass index (BMI) [Ratio] 44.8 kg/m2 44.8 k g/m2 [facility] ([facility]) Systolic blood pressure 164 mm[Hg] 164 mm[Hg] [facility] ([facility]) RT Arm Patient Treatment Plan of Care Planned Activity Planned Date Details Description Data Source (s) Hydroxychloroquine Sulfate 200 MG Oral Tablet [[place]] 09/03/2020 12:00:00 AM EST eCW1 ([facility]) Hydroxychloroquine Sulfate 200 MG Oral Tablet [[place]] 09/03/2020 12:00:00 AM EST eCW1 ([facility]) Hydroxychloroquine Sulfate 200 MG Oral Tablet [[place]] 09/03/2020 12:00:00 AM EST eCW1 ([facility]) Mupirocin 0.02 MG/MG Topical Ointment 05/21/2020 11:00:00 AM [facility] Famotidine 40 MG Oral Tablet 05/12/2020 12:00:00 AM [facility]
--- NOTE | 2021-05-30 18:24 | ECGEPIP ---
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: jp : 1950 Requested By: Florence Coles Order Number: [id number] Reading MD: Florence Coles Measurements Intervals [place] Rate: 119 P: 81 KS: 72 QRS: -65 QRSD: 166 T: 123 QT: 396 QTc: 557 Interpretive Statements Sinus tachycardia with short KS Left axis deviation NSTTW abnormalities Nonspecific intraventricular block Left ventricular hypertrophy with repolarization abnormality ( R in aVL , Nguyễn product , Romhilt-Gonzalez ) Lateral infarct , age undetermined Inferior infarct , age undetermined prolonged qtc, clinical correlation increased rate 05/18/21 Electronically Signed on 05-30-2021 18:24:26 EDT by Florence Coles
[2021-05-30] MEDS ORDERED: VANCOMYCIN HCL 1,000 MG, VIAL MATE ADAPTER 1 EACH in NS 250 ML IV ONE (18:30)
--- NOTE | 2021-05-30 18:48 | HPEPDOC ---
General Date of Admission May 30, 2021 at 17:36 Date of Service: May 30, 2021 Chief Complaint The patient is a 70-year-old female admitted with a reason for visit of Acute Kidney Injury,Hypotension,Syncope. Source: Patient, RN/MD History of Present Illness Mrs. Estrella is a 70 year old female who was recently admitted for COVID pneumonia and syncope returns for syncope 2/2 hypotension and symptomatic anemia. During hospitalization, patient received 11 doses of baricitinib and she had already completed a course of remdesivir. She was put on a prednisone taper to go home. At home, she is resting in bed. Her daughter helped her to get up to go to the commode, and she passed out. She was brought back to the ED for evaluation. While here she has been hypotensive. Supine pressure was 73/40. Patient has a slowly worsening hemoglobin. When I saw the patient, she denied shortness of breath but does report lightheadedness and dizziness and constipation. Denies any fever, chest pain, abdominal pain, or dysuria. She does report poor oral intake which may be the cause of her hypokalemia. On physical exam, her lungs sounded clear. She had abdominal tenderness, but this may be secondary to her constipation. We discussed the risk and benefits of blood transfusions, and she agreed to blood transfusions. She signed consent. Patient will be admitted for syncope secondary to hypotension and symptomatic anemia. Home Medications Scheduled Ergocalciferol (Vitamin D2) (Vitamin D2) 50,000 Units Cap, 50,000 UNITS PO 1XWK, (Reported) ON WEDNESDAYS Omeprazole (Omeprazole) 20 Mg Capsule.dr, 20 MG PO DAILY, (Reported) Oxybutynin Chloride (Oxybutynin Chloride ER) 10 Mg Tab, 10 MG PO DAILY, (Reported) Prednisone (Prednisone) 10 Mg Tablet, 10 MG PO TAPER, (Reported) Take 4 tabs daily x 3 days, then 3 tabs daily x 3 days, then 2 tabs daily x 3 days, then 1 tab daily x 3 days and stop Allergies Coded Allergies: cephalexin (Verified Allergy, Intermediate, hives, 11/27/18) Past Medical History Medical History 1. Hypertension 2. CKD stage III 3. Hyperactive bladder 4. Seasonal allergies 5. Covid pneumonia Surgical History 1. Cholecystectomy 2. 3. Hysterectomy 4. Tubal ligation Family History Father: History of stroke and CHF Mother: No significant past medical history Social History * Smoker: Denies Alcohol: Denies Drugs: denies A-FIB/CHADSVASC A-FIB History Current/History of A-Fib/PAF?: No Review of Systems Constitutional: Reports: Weakness; Denies: Chills, Fever Eyes: Denies: Vision change ENT: Denies: Sore Throat Skin: Denies: Rash Pulmonary: Denies: Dyspnea Cardiovascular: Reports: Lt Headedness; Denies: Chest Pain Gastrointestinal: Denies: Abdominal Pain Genitourinary: Denies: Dysuria Hematologic: Denies: Bruising Neurological: Denies: Numbness Psych: Denies: Anxiety, Depression Physical Examination General Exam: Positive: Alert, Cooperative Eye Exam: Positive: EOMI; Negative: Sclera icteric ENT Exam: Positive: Atraumatic Neck Exam: Positive: Supple Chest Exam: Positive: Clear to auscultation Heart Exam: Positive: Tachycardic, Regular Rhythm Abdomen Exam: Positive: Normal bowel sounds, Soft, Tenderness (Mild) Extremity Exam: Positive: Edema (Very mild pitting edema) Neuro Exam: Positive: Normal Speech, Cranial Nerves 3-12 NL Psych Exam: Positive: Mental status NL, Mood NL Vital Signs Vital Signs Date Time Temp Pulse Resp B/P (MAP) Pulse Ox O2 Delivery O2 Flow Rate FiO2 05/30/21 16:12 119 73/48 (56) 05/30/21 16:10 96.6 28 96 Nasal Cannula 3.0 Laboratory Data Labs 24H Laboratory Tests 2 05/30/21 16:00: Bedside Glucose (Misc Panel) 155H 05/30/21 16:03: Immature Granulocyte % (Auto) 4.3H, Neutrophils (%) (Auto) 86.8H, Lymphocytes (%) (Auto) 5.3L, Monocytes (%) (Auto) 3.5, Eosinophils (%) (Auto) 0.0, Basophils (%) (Auto) 0.1, Neutrophils # (Auto) 21.5H, Lymphocytes # (Auto) 1.3L, Monocytes # (Auto) 0.9H, Eosinophils # (Auto) 0.0, Basophils # (Auto) 0.0, Nucleated Red Blood Cells % (auto) 0.0, Prothrombin Time 14.4H, Prothromb Time International Ratio 1.08, Blood Gas Bicarbonate Standard 18.5, Venous Blood pH 7.339, Venous Blood Partial Pressure CO2 35.0L, Venous Blood Partial Pressure O2 37.4, Venous Blood Total Carbon Dioxide 19.5L, Venous Blood HCO3 18.4L, Venous Blood Oxygen Saturation 63.6, Venous Blood Base Excess -6.7L, Anion Gap 11, Glomerular Filtr ation Rate 29.6L, Calcium Level 7.9L, Magnesium Level 2.0, Total Creatine Kinase 156, Creatine Kinase MB 7.8H, Creatine Kinase MB Relative Index 5.00H, Troponin I 0.17H, Thyroid Stimulating Hormone (TSH) 1.090, Free Thyroxine 1.27 CBC/BMP Laboratory Tests 05/30/21 16:03 Assessment/Plan Mrs. Estrella is a 70 year old female who was recently admitted for COVID pneumonia and syncope returns for syncope 2/2 hypotension and symptomatic anemia. Hypotension may be secondary to poor oral intake versus blood loss anemia versus sepsis. She does have leukocytosis and tachycardia. The tachycardia may be secondary to hypovolemia and leukocytosis may be secondary to steroids. Patient will be transfused with 1 unit of blood. She will be given 30 mg/kg of fluid. Since she was recently hospitalized, patient be put on Zosyn and vancomycin. Plan / VTE VTE Prophylaxis Ordered?: Yes Plan Plan 1. Syncope secondary to hypotension -Unclear etiology, may be multifactorial. Possibly secondary to anemia vs poor oral intake vs sepsis -Patient receiving blood, fluid, and antibiotics 2. Symptomatic anemia Patient reports lightheadedness and dizziness Hemoglobin has been slowly declining Patient was on enoxaparin on previous admission Unlikely GI source as she is constipated Anemia work-up initiated Patient be transfused with 1 unit of blood 3. SIRS versus sepsis Patient has sinus tachycardia and leukocytosis Sinus tachycardia may be secondary to hypotension Leukocytosis may be secondary to steroid use Blood cultures will be obtained. UA ordered. Patient was given levofloxacin in the ED. 30 mg/kg of fluid ordered Due to recent hospitalization, patient will be started on Zosyn and vancomycin day 1 4. Covid pneumonia Patient was recently hospitalized for Covid pneumonia Completed course of remdesivir Had 11 days of baricitinib Patient was discharged home with p.o. prednisone Continue with prednisone taper Supplemental oxygen Isolation precautions 5. Recent left arm fracture Left arm is in cast Patient to see orthopedic surgery on Tuesday for readjustment of cast 6. GERD Continue omeprazole 7. DVT prophylaxis SCDs and teds due to anemia Disposition: Pending clinical improvement CROW FITZGERALD DO May 30, 2021 18:48
[2021-05-30] MEDS ORDERED: MEROPENEM INJ 1 GM in IV 1 EA IV SCH (21:00)
[2021-05-30] MEDS: DOCUSATE SODIUM 100MG CAPSULE PO SCH (21:00)
[2021-05-31] VITALS (34 sets, daily range): BP systolic 88–137; BP diastolic 56–91; O2SAT 91–100
[2021-05-31 08:16] LABS: C REACTIVE PROTEIN QUANTITATIV 0.48 MG/DL (0.00-0.30); CALCIUM LEVEL 7.2 MG/DL (8.8-10.2); CREATININE FOR GFR 1.51 MG/DL (0.55-1.30); GLOMERULAR FILTRATION RATE 36.5 (>45); POTASSIUM SERUM 4.3 MEQ/L (3.5-5.1); TROPONIN I 0.69 NG/ML (< 0.10)
[2021-05-31 08:57] LABS: HEMATOCRIT 21.9 % (36.0-47.0); HEMOGLOBIN 7.4 g/dl (12.0-15.5); MEAN CORPUSCULAR HEMOGLOBIN 28.6 pg (27.0-33.0); MEAN CORPUSCULAR HGB CONC 33.8 g/dl (32.0-36.5); MEAN CORPUSCULAR VOLUME 84.6 fl (80.0-96.0); RED BLOOD COUNT 2.59 10^6/uL (4.00-5.40); WHITE BLOOD COUNT 27.8 10^3/uL (4.0-10.0)
[2021-05-31 09:12] LABS: PLATELET COUNT, AUTOMATED 272 10^3/uL (150-450)
[2021-05-31 09:31] LABS: ERYTHROCYTE SEDIMENTATION RATE 40 mm/hr (0-30)
[2021-05-31] MEDS: oxyBUTYnin *DITROPAN XL* 5 MG TABCR PO SCH (10:19)
[2021-05-31] MEDS: DOCUSATE SODIUM 100MG CAPSULE PO SCH ×2 (10:19→22:09)
[2021-05-31] MEDS: VANCOMYCIN HCL 1,000 MG, VIAL MATE ADAPTER 1 EACH in NS 250 ML IV SCH (10:19)
[2021-05-31] MEDS: predniSONE 10 MG TAB PO SCH (10:19)
[2021-05-31] MEDS: OMEPRAZOLE 20 MG CAP PO SCH (10:20)
[2021-05-31] MEDS ORDERED: ACETAMINOPHEN TAB 650MG DOSE (2X325MG) PO PRN (10:50)
[2021-05-31] MEDS ORDERED: traMADol 50 MG TAB PO PRN (10:55)
[2021-05-31] MEDS: LIDOCAINE 5% (LIDODERM) PATCH TD SCH (11:46)
--- NOTE | 2021-05-31 16:44 | IPNPDOC ---
Subjective Date Seen The patient was seen on 05/31/21. Subjective Chief Complaint/HPI Mrs. Estrella is a 70 year old female who was recently admitted for COVID pneumonia and syncope returns for syncope 2/2 hypotension and symptomatic anemia. This morning she denies any chest pain, dyspnea, or lightheadedness/dizziness. Hemoglobin did not respond to single unit transfusion. Hemoglobin has not responded due to dilution effects of fluid boluses. We will transfuse 2 more units. Blood pressure did respond, and her blood pressure is now stable. Objective Physical Examination General Exam: Positive: Alert, Cooperative Eye Exam: Positive: EOMI; Negative: Sclera icteric ENT Exam: Positive: Atraumatic Neck Exam: Positive: Supple Chest Exam: Positive: Clear to auscultation Heart Exam: Positive: Rate Normal, Regular Rhythm Abdomen Exam: Positive: Normal bowel sounds, Soft Extremity Exam: Positive: Edema (Very mild pitting edema) Neuro Exam: Positive: Normal Speech, Cranial Nerves 3-12 NL Psych Exam: Positive: Mental status NL, Mood NL Assessment /Plan Assessment Mrs. Estrella is a 70 year old female who was recently admitted for COVID pneumonia and syncope returns for syncope 2/2 hypotension and symptomatic anemia. Hypotension may be secondary to poor oral intake versus blood loss anemia versus sepsis. She does have leukocytosis and tachycardia. The tachycardia may be secondary to hypovolemia and leukocytosis may be secondary to steroids. Patient will be transfused with blood. She will be given 30 mg/kg of fluid. Since she was recently hospitalized, patient be put on Zosyn and vancomycin. Plan/VTE VTE Prophylaxis Ordered?: Yes Plan 1. Syncope secondary to hypotension -Unclear etiology, may be multifactorial. Possibly secondary to anemia vs poor oral intake vs sepsis -Patient receiving blood, fluid, and antibiotics Hypotension improved 2. Symptomatic anemia Patient reports lightheadedness and dizziness Hemoglobin has been slowly declining Patient was on enoxaparin on previous admission Unlikely GI source as she is constipated Patient has received 3 units of blood 3. SIRS versus sepsis Patient has sinus tachycardia and leukocytosis Sinus tachycardia may be secondary to hypotension Leukocytosis may be secondary to steroid use Blood cultures will be obtained. UA ordered. Patient was given levofloxacin in the ED. 30 mg/kg of fluid ordered Due to recent hospitalization, patient will be started on Zosyn and vancomycin day 2 4. Covid pneumonia Patient was recently hospitalized for Covid pneumonia Completed course of remdesivir Had 11 days of baricitinib Patient was discharged home with p.o. prednisone Continue with prednisone taper Supplemental oxygen Isolation precautions 5. Recent left arm fracture Left arm is in cast Patient to see orthopedic surgery on Tuesday for readjustment of cast 6. GERD Continue omeprazole 7. DVT prophylaxis SCDs and teds due to anemia Disposition: Pending clinical improvement VS, I&O, 24H, Fishbone Vital Signs/I&O Vital Signs Date Time Temp Pulse Resp B/P (MAP) Pulse Ox O2 Delivery O2 Flow Rate FiO2 05/31/21 15:15 82 123/80 (94) 98 Nasal Cannula 3.0 05/31/21 14:35 97.7 17 I&O- Last 24 Hours up to 6 AM 05/31/21 06:00 Intake Total 4317 ml Balance 4317 ml Laboratory Data 24H LABS Laboratory Tests 2 05/31/21 03:39: 05/31/21 07:44: Anion Gap 11, Glomerular Filtration Rate 36.5L, Calcium Level 7.2L, Troponin I 0.69#H, C-Reactive Protein, Quantitative 0.48H 05/31/21 08:41: Nucleated Red Blood Cells % (auto) 0.0, Erythrocyte Sedimentation Rate 40H, Lactate Dehydrogenase 617H CBC/BMP Laboratory Tests 05/31/21 07:44 05/31/21 08:41 CROW FITZGERALD DO May 31, 2021 16:44
[2021-05-31] MEDS: MEROPENEM INJ 1 GM in IV 1 EA IV SCH (17:00)
[2021-05-31] MEDS: **NOTE PATIENT COMMENT** MISC XX SCH (21:00)
[2021-06-01] VITALS (8 sets, daily range): BP systolic 99–101; BP diastolic 62–67; O2SAT 93–96
[2021-06-01 01:03] LABS: HEMOGLOBIN 9.5 g/dl (12.0-15.5); MEAN CORPUSCULAR HEMOGLOBIN 28.3 pg (27.0-33.0); MEAN CORPUSCULAR HGB CONC 33.9 g/dl (32.0-36.5); MEAN CORPUSCULAR VOLUME 83.3 fl (80.0-96.0); PLATELET COUNT, AUTOMATED 260 10^3/uL (150-450); RED BLOOD COUNT 3.36 10^6/uL (4.00-5.40)
[2021-06-01 01:06] LABS: WHITE BLOOD COUNT 34.3 10^3/uL (4.0-10.0)
[2021-06-01] MEDS: MEROPENEM INJ 1 GM in IV 1 EA IV SCH ×2 (05:16→16:56)
[2021-06-01] MEDS: DOCUSATE SODIUM 100MG CAPSULE PO SCH ×2 (09:28→20:47)
[2021-06-01] MEDS: VANCOMYCIN HCL 1,000 MG, VIAL MATE ADAPTER 1 EACH in NS 250 ML IV SCH (09:28)
[2021-06-01] MEDS: oxyBUTYnin *DITROPAN XL* 5 MG TABCR PO SCH (09:29)
[2021-06-01] MEDS: LIDOCAINE 5% (LIDODERM) PATCH TD SCH (09:29)
[2021-06-01] MEDS: OMEPRAZOLE 20 MG CAP PO SCH (09:29)
[2021-06-01] MEDS: predniSONE 10 MG TAB PO SCH (09:29)
[2021-06-01 10:13] LABS: HEMATOCRIT 26.5 % (36.0-47.0); MEAN CORPUSCULAR HEMOGLOBIN 28.5 pg (27.0-33.0); MEAN CORPUSCULAR VOLUME 83.9 fl (80.0-96.0); PLATELET COUNT, AUTOMATED 256 10^3/uL (150-450); RED BLOOD COUNT 3.16 10^6/uL (4.00-5.40); WHITE BLOOD COUNT 30.9 10^3/uL (4.0-10.0)
[2021-06-01 10:38] LABS: CALCIUM LEVEL 8.4 MG/DL (8.8-10.2); CREATININE FOR GFR 1.44 MG/DL (0.55-1.30); GLOMERULAR FILTRATION RATE 38.5 (>45); POTASSIUM SERUM 3.7 MEQ/L (3.5-5.1); TROPONIN I 0.44 NG/ML (< 0.10); VANCOMYCIN LEVEL TROUGH 13.8 UG/ML (10.0-20.0)
[2021-06-01] MEDS ORDERED: LIDOCAINE 1% MDV 20ML VIAL As Ordered ONE (17:04)
--- NOTE | 2021-06-01 20:31 | IPNPDOC ---
Subjective Date Seen The patient was seen on 06/01/21. Subjective Chief Complaint/HPI Mrs. Estrella is a 70 year old female who was recently admitted for COVID pneumonia and syncope returns for syncope 2/2 hypotension and symptomatic anemia. This morning, she denied any chest pain or dyspnea. Objective Physical Examination General Exam: Positive: Alert, Cooperative Eye Exam: Positive: EOMI; Negative: Sclera icteric ENT Exam: Positive: Atraumatic Neck Exam: Positive: Supple Chest Exam: Positive: Clear to auscultation Heart Exam: Positive: Rate Normal, Regular Rhythm Abdomen Exam: Positive: Normal bowel sounds, Soft Extremity Exam: Positive: Edema (Very mild pitting edema) Neuro Exam: Positive: Normal Speech, Cranial Nerves 3-12 NL Psych Exam: Positive: Mental status NL, Mood NL Assessment /Plan Assessment Mrs. Estrella is a 70 year old female who was recently admitted for COVID pneumonia and syncope returns for syncope 2/2 hypotension and symptomatic anemia. Hypotension may be secondary to poor oral intake versus blood loss anem ia versus sepsis. She does have leukocytosis and tachycardia. The tachycardia may be secondary to hypovolemia and leukocytosis may be secondary to steroids. Patient will be transfused with blood. She will be given 30 mL/kg of fluid. Since she was recently hospitalized, patient be put on Zosyn and vancomycin. Patient did not initially respond to the first blood transfusion, but she was given 30mL/kg of fluid. She may have been dehydrated prior and her actual hemoglobin was below 7.4. Gave 2 more units, and she responded up to 9.5. Will need to continue monitoring hemoglobin. Plan/VTE VTE Prophylaxis Ordered?: Yes Plan 1. Syncope secondary to hypotension -Unclear etiology, may be multifactorial. Possibly secondary to anemia vs poor oral intake vs sepsis -Patient receiving blood, fluid, and antibiotics Hypotension improved 2. Symptomatic anemia Patient reports lightheadedness and dizziness Hemoglobin has been slowly declining Patient was on enoxaparin on previous admission Unlikely GI source as she is constipated Patient has received 3 units of blood 3. SIRS versus sepsis Patient has sinus tachycardia and leukocytosis Sinus tachycardia may be secondary to hypotension Leukocytosis may be secondary to steroid use Blood cultures will be obtained. UA ordered. Patient was given levofloxacin in the ED. 30 mg/kg of fluid ordered Due to recent hospitalization, patient will be started on Zosyn and vancomycin day 2 4. Covid pneumonia Patient was recently hospitalized for Covid pneumonia Completed course of remdesivir Had 11 days of baricitinib Patient was discharged home with p.o. prednisone Continue with prednisone taper Supplemental oxygen Isolation precautions 5. Recent left arm fracture Left arm is in cast Patient to see orthopedic surgery on Tuesday for readjustment of cast 6. GERD Continue omeprazole 7. DVT prophylaxis SCDs and teds due to anemia Disposition: Pending stability of hemoglobin and blood pressure. PT/OT recommending rehab. VS, I&O, 24H, Fishbone Vital Signs/I&O Vital Signs Date Time Temp Pulse Resp B/P (MAP) Pulse Ox O2 Delivery O2 Flow Rate FiO2 06/01/21 18:00 98.4 74 18 99/67 (78) 97 Nasal Cannula 2.0 I&O- Last 24 Hours up to 6 AM 06/01/21 06:00 Intake Total 1530 ml Output Total 351 ml Balance 1179 ml Laboratory Data 24H LABS Laboratory Tests 2 06/01/21 00:52: Nucleated Red Blood Cells % (auto) 0.1H 06/01/21 09:29: Nucleated Red Blood Cells % (auto) 0.2H, Differential Slide Review Report, Peripheral Blood Smear Path Consult PERIPHERAL SMEAR, Anion Gap 11, Glomerular Filtration Rate 38.5L, Calcium Level 8.4#L, Troponin I 0.44#H, Vancomycin Level Trough 13.8 CBC/BMP Laboratory Tests 06/01/21 00:52 06/01/21 09:29 CROW FITZGERALD DO Jun 01, 2021 20:31
[2021-06-01] MEDS: **NOTE PATIENT COMMENT** MISC XX SCH (20:48)
[2021-06-02] VITALS (9 sets, daily range): BP systolic 90–124; BP diastolic 51–87; O2SAT 93–97
[2021-06-02] MEDS ORDERED: SODIUM CHLORIDE 0.9% INJ 10 ML SYR IV PRN ×2 (03:25)
[2021-06-02] MEDS: SODIUM CHLORIDE 0.9% INJ 10 ML SYR IV SCH ×2 (05:31→18:44)
[2021-06-02] MEDS: MEROPENEM INJ 1 GM in IV 1 EA IV SCH ×2 (05:31→17:42)
[2021-06-02 06:16] LABS: CALCIUM LEVEL 7.6 MG/DL (8.8-10.2); CREATININE FOR GFR 1.19 MG/DL (0.55-1.30); POTASSIUM SERUM 3.7 MEQ/L (3.5-5.1)
[2021-06-02] MEDS: predniSONE 10 MG TAB PO SCH (08:47)
[2021-06-02] MEDS: DOCUSATE SODIUM 100MG CAPSULE PO SCH ×2 (08:47→20:56)
[2021-06-02] MEDS: OMEPRAZOLE 20 MG CAP PO SCH (08:47)
[2021-06-02] MEDS: oxyBUTYnin *DITROPAN XL* 5 MG TABCR PO SCH (08:47)
[2021-06-02] MEDS: LIDOCAINE 5% (LIDODERM) PATCH TD SCH (08:48)
[2021-06-02] MEDS: VANCOMYCIN HCL 1,000 MG, VIAL MATE ADAPTER 1 EACH in NS 250 ML IV SCH (08:57)
[2021-06-02 09:53] LABS: HEMATOCRIT 23.1 % (36.0-47.0); HEMOGLOBIN 7.7 g/dl (12.0-15.5); MEAN CORPUSCULAR HEMOGLOBIN 28.4 pg (27.0-33.0); MEAN CORPUSCULAR HGB CONC 33.3 g/dl (32.0-36.5); MEAN CORPUSCULAR VOLUME 85.2 fl (80.0-96.0); PLATELET COUNT, AUTOMATED 218 10^3/uL (150-450); RED BLOOD COUNT 2.71 10^6/uL (4.00-5.40); WHITE BLOOD COUNT 22.3 10^3/uL (4.0-10.0)
--- NOTE | 2021-06-02 17:36 | REP ---
PROCEDURE NAME: PICC LINE INSERTION W/SITERITE CLINICAL INFORMATION: poor access. COMPARISON: None. PROCEDURE DESCRIPTION: The procedure was performed by NAPOLEON Villalobos, under the direct supervision of Dr. Castillo. The risks and benefits of the procedure were explained to the patient and an informed consent was obtained both verbally and written. Directly prior to the start of the procedure a formal time-out was completed at the patient's bedside. The right basilic vein was localized using ultrasound guidance. The skin was prepped and draped in sterile fashion. Five mL of 1% lidocaine 10 mg/mL was used as a local anesthetic. Using ultrasound guidance the right basilic vein was cannulated, and a 0.018 guidewire was inserted and advanced to the level of SVC using fluoroscopic guidance. The needle was removed and a 6 Cambodian dilator and peel-away sheath was inserted over the guidewire. A 6 Cambodian double lumen catheter was cut to a length of 30 cm. The dilator was removed and the catheter was inserted over the guidewire with the tip ending at the level of the SVC. Location of the tip is confirmed with a chest radiograph. The peel-away sheath was removed and the catheter was flushed with heparinized saline as per hospital protocol. The catheter was affixed to the skin and a sterile dressing was applied. The patient tolerated the procedure well and there were no immediate complications. CONCLUSION: PICC line insertion into the right basilic vein. The tip is in the superior vena cava. <Electronically signed by Phuong Ortega > 06/02/21 [id number] <Electronically signed by Ajit Castillo > 06/02/21 [id number]
--- NOTE | 2021-06-02 20:09 | IPNPDOC ---
Date Seen The patient was seen on 06/02/21. Progress Note SUBJECTIVE: Seen examined at bedside. Good spirits. Doing well. States that she is likely too much work for her family to handle at home. On 4 L nasal cannula. Denies chest pain palpitations or diarrhea. OBJECTIVE PHYSICAL EXAMINATION: VITAL SIGNS: please see below General: NAD, comfortable HEENT: PERRLA, EOMI, sclerae clear Neck: supple, normal ROM, no JVD Respiratory: lungs CTAB, no wheeze, no rales, no crackles CVS: RRR, normal S1, S2, no murmurs Abdo: soft, no masses, no hepatosplenomegaly, BS+, no rebound tenderness Extremities: Left arm in cast. PICC line in right basilic vein. MSK: no joint deformities, normal ROM Neuro: no focal neuro deficits, moving all 4 extremities, CN2-12 intact. Strength 5/5 in all 4 extremities. No nystagmus. Psych: calm, cooperative, AAO x 3 LABORATORY DATA, IMAGING STUDIES, MICROBIOLOGY: Please see below Echo (ordered on 06/02/21) DVT prophylaxis ordered?: SCDs. TEDs. ASSESSMENT AND PLAN: Mrs. Estrella is a 70 year old female who was recently admitted for COVID pneumonia and syncope returns for syncope 2/2 hypotension and symptomatic anemia. Hypotension may be secondary to poor oral intake versus blood loss anemia versus sepsis. She does have leukocytosis and tachycardia. The tachycardia may be secondary to hypovolemia and leukocytosis may be secondary to steroids. Hgb responded to 2 unitspRBC transfusion. PROBLEMS: # Syncope secondary to hypotension -Unclear etiology, may be multifactorial. Possibly secondary to anemia vs poor oral intake vs sepsis -Patient receiving blood, fluid, and antibiotics Hypotension improved -check 2D echo. #. Symptomatic anemia Patient reports lightheadedness and dizziness - transfused 3 units prbc - Hgb decreased from 9 to 7.7. - stop omeprazole 20 gm daily, convert to IV pantroprazol 40 mg daily -Check FOBT #. SIRS versus sepsis Patient has sinus tachycardia and leukocytosis Sinus tachycardia may be secondary to hypotension Leukocytosis may be secondary to steroid use Blood cultures were not sent. Ordered. UA ordered. Patient was given levofloxacin in the ED. 30 mg/kg of fluid ordered Due to recent hospitalization, patient will be started on Zosyn and vancomycin day 3 - MRSA Swab positive. #. Covid pneumonia Patient was recently hospitalized for Covid pneumonia Completed course of remdesivir Had 11 days of baricitinib Patient was discharged home with p.o. prednisone Continue with prednisone taper Supplemental oxygen Isolation precautions #. Recent left arm fracture Left arm is in cast Patient to see orthopedic surgery on Tuesday for readjustment of cast #. GERD Continue omeprazole # DVT prophylaxis SCDs and teds due to anemia Disposition: Pending stability of hemoglobin and blood pressure. PT/OT recommending rehab. VS, I&O, 24H, Fishbone Vital Signs/I&O Vital Signs Date Time Temp Pulse Resp B/P (MAP) Pulse Ox O2 Delivery O2 Flow Rate FiO2 06/02/21 16:00 93 Nasal Cannula 4.0 06/02/21 14:00 97.1 92 18 90/87 (88) I&O- Last 24 Hours up to 6 AM 06/02/21 06:00 Intake Total 550 ml Balance 550 ml Laboratory Data 24H LABS Laboratory Tests 2 06/02/21 05:30: Anion Gap 6L, Glomerular Filtration Rate 48.0, Calcium Level 7.6L 06/02/21 06:25: Nucleated Red Blood Cells % (auto) 0.1H 06/02/21 08:22: Procalcitonin 0.06, Vancomycin Level Trough 19.5 06/02/21 10:45: Methicillin-Resist S.aureus DNA PCR DETECTEDA CBC/BMP Laboratory Tests 06/02/21 05:30 06/02/21 06:25 DIANA LLANOS MD Jun 02, 2021 20:09
[2021-06-02 20:38] LABS: BASO % 0.1 % (0.0-1.0); HEMATOCRIT 25.5 % (36.0-47.0); HEMOGLOBIN 8.5 g/dl (12.0-15.5); LYMPH # 0.4 10^3/uL (1.5-5.0); LYMPH % 1.6 % (24.0-44.0); MEAN CORPUSCULAR HEMOGLOBIN 28.6 pg (27.0-33.0); MEAN CORPUSCULAR HGB CONC 33.3 g/dl (32.0-36.5); MEAN CORPUSCULAR VOLUME 85.9 fl (80.0-96.0); MONO % 7.9 % (2.0-8.0); NEUTROPHILS # 20.7 10^3/uL (1.5-8.5); NEUTROPHILS % 87.3 % (36.0-66.0); PLATELET COUNT, AUTOMATED 227 10^3/uL (150-450); RED BLOOD COUNT 2.97 10^6/uL (4.00-5.40); WHITE BLOOD COUNT 23.7 10^3/uL (4.0-10.0)
[2021-06-02 20:54] LABS: MONO # 1.9 10^3/uL (0.0-0.8)
[2021-06-02] MEDS: **NOTE PATIENT COMMENT** MISC XX SCH (20:56)
[2021-06-02] MEDS: PANTOPRAZOLE 40MG VIAL (C9113 PER 1) IV SCH (20:56)
[2021-06-03 03:30] VITALS: O2SAT 91
[2021-06-03] MEDS: BENZONATATE 100MG CAPSULE PO PRN ×2 (03:52→20:59)
[2021-06-03 04:00] VITALS: BP 95/52
[2021-06-03] MEDS: MEROPENEM INJ 1 GM in IV 1 EA IV SCH (04:00)
[2021-06-03] MEDS: SODIUM CHLORIDE 0.9% INJ 10 ML SYR IV SCH ×2 (05:29→16:56)
[2021-06-03 06:13] LABS: HEMATOCRIT 22.5 % (36.0-47.0); HEMOGLOBIN 7.5 g/dl (12.0-15.5); MEAN CORPUSCULAR HEMOGLOBIN 29.1 pg (27.0-33.0); MEAN CORPUSCULAR HGB CONC 33.3 g/dl (32.0-36.5); MEAN CORPUSCULAR VOLUME 87.2 fl (80.0-96.0); PLATELET COUNT, AUTOMATED 211 10^3/uL (150-450); RED BLOOD COUNT 2.58 10^6/uL (4.00-5.40); WHITE BLOOD COUNT 22.9 10^3/uL (4.0-10.0)
[2021-06-03 06:38] LABS: CALCIUM LEVEL 7.7 MG/DL (8.8-10.2); CREATININE FOR GFR 1.15 MG/DL (0.55-1.30); POTASSIUM SERUM 3.7 MEQ/L (3.5-5.1)
[2021-06-03 08:00] VITALS: O2SAT 92
[2021-06-03] MEDS: LIDOCAINE 5% (LIDODERM) PATCH TD SCH (08:08)
[2021-06-03] MEDS: DOCUSATE SODIUM 100MG CAPSULE PO SCH ×2 (08:09→20:59)
[2021-06-03] MEDS: DOXYCYCLINE HYCLATE 100MG TABLET PO SCH ×2 (08:09→20:59)
[2021-06-03] MEDS: predniSONE 10 MG TAB PO SCH (08:09)
[2021-06-03] MEDS: LevoFLOXacin 750 MG TABLET PO SCH (08:09)
[2021-06-03] MEDS: oxyBUTYnin *DITROPAN XL* 5 MG TABCR PO SCH (08:09)
[2021-06-03 12:00] VITALS: O2SAT 94
[2021-06-03 14:00] VITALS: BP 97/54
--- NOTE | 2021-06-03 18:22 | IPNPDOC ---
Date Seen The patient was seen on 06/03/21. Progress Note SUBJECTIVE: Seen examined at bedside. Good spirits. Doing well. States that she is likely too much work for her family to handle at home. On 4 L nasal cannula. Denies chest pain palpitations or diarrhea. OBJECTIVE PHYSICAL EXAMINATION: VITAL SIGNS: please see below General: NAD, comfortable HEENT: PERRLA, EOMI, sclerae clear Neck: supple, normal ROM, no JVD Respiratory: lungs CTAB, no wheeze, no rales, no crackles CVS: RRR, normal S1, S2, no murmurs Abdo: soft, no masses, no hepatosplenomegaly, BS+, no rebound tenderness Extremities: Left arm in cast. PICC line in right basilic vein. MSK: no joint deformities, normal ROM Neuro: no focal neuro deficits, moving all 4 extremities, CN2-12 intact. Strength 5/5 in all 4 extremities. No nystagmus. Psych: calm, cooperative, AAO x 3 LABORATORY DATA, IMAGING STUDIES, MICROBIOLOGY: Please see below Echo (ordered on 06/02/21) DVT prophylaxis ordered?: SCDs. TEDs. ASSESSMENT AND PLAN: Mrs. Estrella is a 70 year old female who was recently admitted for COVID pneumonia and syncope returns for syncope 2/2 hypotension and symptomatic anemia. Hypotension may be secondary to poor oral intake versus blood loss anemia versus sepsis. She does have leukocytosis and tachycardia. The tachycardia may be secondary to hypovolemia and leukocytosis may be secondary to steroids. Hgb responded to 2 unitspRBC transfusion. PROBLEMS: # Syncope secondary to hypotension -Unclear etiology, may be multifactorial. Possibly secondary to anemia vs poor oral intake vs sepsis -Patient receiving blood, fluid, and antibiotics Hypotension improved -check 2D echo. #. Symptomatic anemia Patient reports lightheadedness and dizziness - transfused 3 units prbc - Hgb decreased from 9 to 7.7. - stop omeprazole 20 gm daily, convert to IV pantroprazol 40 mg daily -Check FOBT #. SIRS versus sepsis Patient has sinus tachycardia and leukocytosis Sinus tachycardia may be secondary to hypotension Leukocytosis may be secondary to steroid use Blood cultures were not sent. Ordered. UA ordered. Patient was given levofloxacin in the ED. 30 mg/kg of fluid ordered Due to recent hospitalization, patient will be started on Zosyn and vancomycin 3 days total - MRSA Swab positive. - convert to PO abx, doxycycline and levaquiin 750 mg q48h. #anemia - no report of bloody stool - check FOBT - check LDH, retic. Peripheral smear. #. Covid pneumonia Patient was recently hospitalized for Covid pneumonia Completed course of remdesivir Had 11 days of baricitinib Patient was discharged home with p.o. prednisone Continue with prednisone taper Supplemental oxygen Isolation precautions #. Recent left arm fracture Left arm is in cast Patient to see orthopedic surgery on Tuesday for readjustment of cast #. GERD Continue omeprazole # DVT prophylaxis SCDs and teds due to anemia Disposition: Pending stability of hemoglobin and blood pressure. PT/OT recommending rehab. VS, I&O, 24H, Fishbone Vital Signs/I&O Vital Signs Date Time Temp Pulse Resp B/P (MAP) Pulse Ox O2 Delivery O2 Flow Rate FiO2 06/03/21 14:00 98.4 84 20 97/54 (68) 97 High Flow Cannula 12.0 I&O- Last 24 Hours up to 6 AM 06/03/21 06:00 Intake Total 1300 ml Balance 1300 ml Laboratory Data 24H LABS Laboratory Tests 2 06/02/21 20:23: Immature Granulocyte % (Auto) 3.1H, Neutrophils (%) (Auto) 87.3H, Lymphocytes (%) (Auto) 1.6L, Monocytes (%) (Auto) 7.9, Eosinophils (%) (Auto) 0.0, Basophils (%) (Auto) 0.1, Neutrophils # (Auto) 20.7H, Lymphocytes # (Auto) 0.4L, Monocytes # (Auto) 1.9H, Eosinophils # (Auto) 0.0, Basophils # (Auto) 0.0, Nucleated Red Blood Cells % (auto) 0.1H 06/03/21 05:26: Nucleated Red Blood Cells % (auto) 0.1H, Anion Gap 6L, Glomerular Filtration Rate 50.0, Calcium Level 7.7L 06/03/21 11:28: Vancomycin Level Trough 19.4 CBC/BMP Laboratory Tests 06/02/21 20:23 06/03/21 05:26 Microbiology Microbiology 06/02/21 Blood Culture, Received Pending 06/02/21 Blood Culture, Received Pending DIANA LLANOS MD Jun 03, 2021 18:22
[2021-06-03] MEDS ORDERED: ISOVUE-370 76% 100ML VIAL As Ordered ONE ×2 (18:32→20:12)
[2021-06-03 20:00] VITALS: BP 116/59; O2SAT 88
[2021-06-03] MEDS: **NOTE PATIENT COMMENT** MISC XX SCH (20:59)
[2021-06-03] MEDS: PANTOPRAZOLE 40MG VIAL (C9113 PER 1) IV SCH (20:59)
--- NOTE | 2021-06-03 23:23 | REPVR ---
PROCEDURE INFORMATION: Exam: XR Chest Exam date and time: 06/03/2021 10:15 PM Age: 70 years old Clinical indication: Other: Hypoxia TECHNIQUE: Imaging protocol: XR of the chest. Views: 1 view. COMPARISON: CR Chest, 1 view 05/30/2021 4:44 PM FINDINGS: Tubes, catheters and devices: Interval placement of a right PICC line to the mid right subclavian vein. Lungs: Increased bilateral infiltrates and atelectasis since the prior study. Pleural spaces: Question of minimal bilateral pleural effusions. Heart/Mediastinum: The heart and mediastinum are unchanged. Bones/joints: Unremarkable. IMPRESSION: 1. Increased bilateral infiltrates and atelectasis since 05/30/2021 with question of minimal pleural effusions which may reflect interval congestive failure. Pneumonia is not excluded. 2. Interval placement of a right PICC line to the mid right subclavian vein. Electronically signed by: Jose Loja On 06/03/2021 23:23:10 PM
[2021-06-04] VITALS (16 sets, daily range): BP systolic 90–126; BP diastolic 55–81; O2SAT 85–97
[2021-06-04 02:54] LABS: HEMOGLOBIN 8.3 g/dl (12.0-15.5); MEAN CORPUSCULAR HEMOGLOBIN 29.3 pg (27.0-33.0); MEAN CORPUSCULAR HGB CONC 33.2 g/dl (32.0-36.5); MEAN CORPUSCULAR VOLUME 88.3 fl (80.0-96.0); PLATELET COUNT, AUTOMATED 231 10^3/uL (150-450); RED BLOOD COUNT 2.83 10^6/uL (4.00-5.40); WHITE BLOOD COUNT 26.9 10^3/uL (4.0-10.0)
[2021-06-04 02:55] LABS: VENOUS BASE EXCESS -0.6 (-2.0-2.0); VENOUS HCO3 24.2 MEQ/L (23.0-27.0); VENOUS PARTIAL PRESSURE O2 29.1 mmHg (30.0-50.0); VENOUS PH 7.399 UNITS (7.330-7.430); VENOUS STANDARD HCO3 23.4 MEQ/L; VENOUS TOTAL CO2 25.4 MEQ/L (24.0-28.0)
[2021-06-04 03:11] LABS: INR 1.09; PROTHROMBIN TIME 14.5 SECONDS (12.7-14.5)
[2021-06-04 03:12] LABS: FIBRINOGEN 396 MG/DL (268-480); PARTIAL THROMBOPLASTIN TIME 28.2 SECONDS (25.9-37.0)
[2021-06-04 03:47] LABS: C REACTIVE PROTEIN QUANTITATIV 7.41 MG/DL (0.00-0.30); CALCIUM LEVEL 8.2 MG/DL (8.8-10.2); CREATININE FOR GFR 1.16 MG/DL (0.55-1.30); GLOMERULAR FILTRATION RATE 49.5 (>45); POTASSIUM SERUM 3.8 MEQ/L (3.5-5.1); TROPONIN I 0.15 NG/ML (< 0.10)
[2021-06-04 03:50] LABS: D-DIMER QUANT > 4000 ng/ml (<500)
[2021-06-04] MEDS: SODIUM CHLORIDE 0.9% INJ 10 ML SYR IV SCH ×2 (05:15→17:18)
[2021-06-04] MEDS ORDERED: FUROSEMIDE 40MG/4ML VIAL (J1940) IV ONE (08:30)
[2021-06-04] MEDS: DOCUSATE SODIUM 100MG CAPSULE PO SCH ×2 (09:46→20:22)
[2021-06-04] MEDS: oxyBUTYnin *DITROPAN XL* 5 MG TABCR PO SCH (09:47)
[2021-06-04] MEDS: DOXYCYCLINE HYCLATE 100MG TABLET PO SCH ×2 (09:48→20:22)
[2021-06-04] MEDS: predniSONE 10 MG TAB PO SCH (09:48)
[2021-06-04] MEDS: LIDOCAINE 5% (LIDODERM) PATCH TD SCH (09:49)
[2021-06-04] MEDS ORDERED: HEPARIN SOD (PORCINE) 5000UNITS/ML 1ML VIAL/SYRINGE IV PRN (12:05)
[2021-06-04 13:48] LABS: HEMATOCRIT 26.5 % (36.0-47.0); HEMOGLOBIN 8.8 g/dl (12.0-15.5); MEAN CORPUSCULAR HGB CONC 33.2 g/dl (32.0-36.5); MEAN CORPUSCULAR VOLUME 87.5 fl (80.0-96.0); PLATELET COUNT, AUTOMATED 213 10^3/uL (150-450); RED BLOOD COUNT 3.03 10^6/uL (4.00-5.40); WHITE BLOOD COUNT 29.1 10^3/uL (4.0-10.0)
[2021-06-04 14:13] LABS: ALBUMIN 2.1 GM/DL (3.2-5.2); BILIRUBIN,TOTAL 0.8 MG/DL (0.2-1.0); CALCIUM LEVEL 8.3 MG/DL (8.8-10.2); CREATININE FOR GFR 1.1 MG/DL (0.55-1.30); GLOMERULAR FILTRATION RATE 52.6 (>45); MAGNESIUM LEVEL 1.8 MG/DL (1.8-2.4); POTASSIUM SERUM 3.6 MEQ/L (3.5-5.1); TOTAL PROTEIN 5.7 GM/DL (6.4-8.2)
[2021-06-04] MEDS: FUROSEMIDE 40MG/4ML VIAL (J1940) IV SCH ×2 (14:15→21:00)
[2021-06-04 14:23] LABS: BASO % 0.1 % (0.0-1.0); LYMPH # 0.3 10^3/uL (1.5-5.0); LYMPH % 0.9 % (24.0-44.0); MONO # 2.2 10^3/uL (0.0-0.8); MONO % 7.6 % (2.0-8.0); NEUTROPHILS # 25.8 10^3/uL (1.5-8.5); NEUTROPHILS % 88.9 % (36.0-66.0)
[2021-06-04] MEDS: HEPARIN DRIP 25,000 UNITS in IV 1 EA IV SCH (14:27)
--- NOTE | 2021-06-04 15:26 | REP ---
INDICATION: r/o dvt COMPARISON: 05/18/2021. TECHNIQUE: Real time compression and duplex Doppler interrogation of the bilateral lower extremity deep venous system is performed. Compression ultrasound is attempted of the bilateral peroneal and posterior tibial veins, but these veins could not be visualized due to body habitus and soft tissue edema. FINDINGS: Bilaterally, the common femoral, superficial femoral and popliteal veins are fully compressible with transducer pressure and demonstrate normal spontaneous and phasic flow, without evidence of deep venous thrombosis. IMPRESSION: No evidence of deep venous thrombosis of the bilateral lower extremity femoral popliteal venous system. <Electronically signed by Ajit Castillo > 06/04/21 [id number]
[2021-06-04] MEDS: PANTOPRAZOLE 40MG VIAL (C9113 PER 1) IV SCH (20:22)
[2021-06-04] MEDS: **NOTE PATIENT COMMENT** MISC XX SCH (20:22)
--- NOTE | 2021-06-04 21:21 | IPNPDOC ---
Date Seen The patient was seen on 06/04/21. Progress Note SUBJECTIVE: Seen examined at bedside. On max vapotherm. Denies CP, palpitaitons, fevers, chills. OBJECTIVE PHYSICAL EXAMINATION: VITAL SIGNS: please see below General: NAD, comfortable HEENT: PERRLA, EOMI, sclerae clear Neck: supple, normal ROM, no JVD Respiratory: poor inspiratory effort, rales bilterall. CVS: RRR, normal S1, S2, no murmurs Abdo: soft, no masses, no hepatosplenomegaly, BS+, no rebound tenderness Extremities: Left arm in cast. Fingers warm, cap refill < 2 sec. PICC line in right basilic vein. MSK: no joint deformities, normal ROM Neuro: no focal neuro deficits, moving all 4 extremities, CN2-12 intact. Strength 5/5 in all 4 extremities. No nystagmus. Psych: calm, cooperative, AAO x 3 LABORATORY DATA, IMAGING STUDIES, MICROBIOLOGY: Please see below Echo (ordered on 06/02/21) - report is pending. DVT prophylaxis ordered?: SCDs. TEDs. ASSESSMENT AND PLAN: Mrs. Estrella is a 70 year old female who was recently admitted for COVID pneumonia and syncope returns for syncope 2/2 hypotension and symptomatic anemia. Hypotension may be secondary to poor oral intake versus blood loss anemia versus sepsis. She does have leukocytosis and tachycardia. The tachycardia may be secondary to hypovolemia and leukocytosis may be secondary to steroids. Hgb responded to 2 unitspRBC transfusion. PROBLEMS: # Syncope secondary to hypotension -Unclear etiology, may be multifactorial. Possibly secondary to anemia vs poor oral intake vs sepsis -Patient receiving blood, fluid, and antibiotics Hypotension improved -check 2D echo - report pending. I reached out to Dr. Larson today, plan to speak again tomorrow. #. Symptomatic anemia Patient reports lightheadedness and dizziness - transfused 3 units prbc - Hgb decreased from 9 to 7.7, but has remained stable. Peripheral smear wnl. - stop omeprazole 20 gm daily, convert to IV pantroprazol 40 mg daily -Check FOBT #. SIRS versus sepsis Patient has sinus tachycardia and leukocytosis Sinus tachycardia may be secondary to hypotension Leukocytosis may be secondary to steroid use Blood cultures were not sent. Ordered. UA ordered. Patient was given levofloxacin in the ED. 30 mg/kg of fluid ordered Due to recent hospitalization, was started on Zosyn and vancomycin, completed 3 days total - MRSA Swab positive. - convert to PO abx, doxycycline and Levaquin 750 mg q48h. #Acute hypoxic respitraoty failre - possibly 2/2 covid vs CHF exacerbation - BNP 81052 - requires max vapotherm - D dimer > 4000 - patient was started on heparin ggt for suspected PE. Duplex of BLE negative - check CBC q12h - c/w lasix 40 mg IV q8h. monitor UOP - I discussed the plan with patient and her daughter, both are in agreement - to otain CTA chest once not aerosolizing. #. Covid pneumonia Patient was recently hospitalized for Covid pneumonia Completed course of remdesivir Had 11 days of baricitinib Patient was discharged home with p.o. prednisone Continue with prednisone taper Supplemental oxygen - max vapotjhrm Isolation precautions #. Recent left arm fracture Left arm is in cast -patient was unable to f/u with ortho, as re-hospitalized - per request of daughter, to speak with ortho about replacing with a short cast #. GERD Continue omeprazole # DVT prophylaxis SCDs and teds due to anemia Disposition: Pending stability of hemoglobin and blood pressure. PT/OT recommending rehab. I spoke to patient's daughter Clarisa today, twice. VS, I&O, 24H, Opal Vital Signs/I&O Vital Signs Date Time Temp Pulse Resp B/P (MAP) Pulse Ox O2 Delivery O2 Flow Rate FiO2 06/04/21 17:24 100 06/04/21 17:00 121 93 HVNI-Vapotherm 40.0 06/04/21 16:14 98.6 25 102/69 (80) I&O- Last 24 Hours up to 6 AM 06/04/21 06:00 Intake Total 1170 ml Output Total 450 ml Balance 720 ml Laboratory Data 24H LABS Laboratory Tests 2 06/04/21 02:21: Prothrombin Time 14.5H, Prothromb Time International Ratio 1.09, Activated Partial Thromboplast Time 28.2, Fibrinogen 396, D-Dimer, Quantitative > 4000H 06/04/21 02:22: Reticulocyte # (auto) 83.5H, Nucleated Red Blood Cells % (auto) 0.0, Percent Reticulocyte Count 3.0H, Reticulocyte Hemoglobin Equivalent 37.1H, Blood Gas Bicarbonate Standard 23.4, Venous Blood pH 7.399, Venous Blood Partial Pressure CO2 40.0, Venous Blood Partial Pressure O2 29.1L, Venous Blood Total Carbon Dioxide 25.4, Venous Blood HCO3 24.2, Venous Blood Oxygen Saturation 59.0L, Venous Blood Base Excess -0.6, Anion Gap 3L, Glomerular Filtration Rate 49.5, Calcium Level 8.2L, Ferritin 664H, Lactate Dehydrogenase 731H, Total Creatine Kinase 111, Troponin I 0.15H, C-Reactive Protein, Quantitative 7.41H, KM-Gds-D-Type Natriuretic Peptide [id number] 06/04/21 12:39: Activated Partial Thromboplast Time 30.2, Nucleated Red Blood Cells % (auto) 0.0, Anion Gap 7L, Glomerular Filtration Rate 52.6, Calcium Level 8.3L, Immature Granulocyte % (Auto) 2.5, Neutrophils (%) (Auto) 88.9H, Lymphocytes (%) (Auto) 0.9L, Monocytes (%) (Auto) 7.6, Eosinophils (%) (Auto) 0.0, Basophils (%) (Auto) 0.1, Neutrophils # (Auto) 25.8H, Lymphocytes # (Auto) 0.3L, Monocytes # (Auto) 2.2H, Eosinophils # (Auto) 0.0, Basophils # (Auto) 0.0, Immature Granulocyte # (Auto) 0.7H, Platelet Estimate , Magnesium Level 1.8, Total Bilirubin 0.8, Aspartate Amino Transf (AST/SGOT) 52H, Alanine Aminotransferase (ALT/SGPT) 42, Alkaline Phosphatase 86, Total Protein 5.7L, Albumin 2.1L, Albumin/Globulin Ratio 0.6L CBC/BMP Laboratory Tests 06/04/21 02:22 06/04/21 12:39 Microbiology Microbiology 06/02/21 Blood Culture - Preliminary, Resulted No Growth after 48 hours. All Specime... 06/02/21 Blood Culture - Preliminary, Resulted No Growth after 48 hours. All Specime... DIANA LLANOS MD Jun 04, 2021 21:21
[2021-06-04 21:43] LABS: BASO % 0.1 % (0.0-1.0); HEMATOCRIT 24.7 % (36.0-47.0); HEMOGLOBIN 8.3 g/dl (12.0-15.5); LYMPH # 0.5 10^3/uL (1.5-5.0); LYMPH % 1.7 % (24.0-44.0); MEAN CORPUSCULAR HEMOGLOBIN 29.2 pg (27.0-33.0); MEAN CORPUSCULAR HGB CONC 33.6 g/dl (32.0-36.5); MONO # 2.3 10^3/uL (0.0-0.8); MONO % 8.3 % (2.0-8.0); NEUTROPHILS % 87.5 % (36.0-66.0); PLATELET COUNT, AUTOMATED 211 10^3/uL (150-450); RED BLOOD COUNT 2.84 10^6/uL (4.00-5.40); WHITE BLOOD COUNT 27.5 10^3/uL (4.0-10.0)
[2021-06-05] VITALS (42 sets, daily range): BP systolic 80–109; BP diastolic 52–72; O2SAT 89–90
[2021-06-05] MEDS ORDERED: NS 1,000 ML IV ONE (00:55)
[2021-06-05 01:38] LABS: HEMATOCRIT 24.8 % (36.0-47.0); HEMOGLOBIN 8.2 g/dl (12.0-15.5); MEAN CORPUSCULAR HEMOGLOBIN 28.9 pg (27.0-33.0); MEAN CORPUSCULAR HGB CONC 33.1 g/dl (32.0-36.5); MEAN CORPUSCULAR VOLUME 87.3 fl (80.0-96.0); PLATELET COUNT, AUTOMATED 199 10^3/uL (150-450); RED BLOOD COUNT 2.84 10^6/uL (4.00-5.40); WHITE BLOOD COUNT 24.7 10^3/uL (4.0-10.0)
[2021-06-05 05:05] LABS: ABG BASE EXCESS 2.4 (-2.0-2.0); ABG HCO3 27.2 MEQ/L (22.0-26.0); ABG O2 SATURATION 92.9 % (95.0-99.0); ABG PARTIAL PRESSURE CO2 43.5 mmHg (35.0-45.0); ABG PARTIAL PRESSURE O2 66.8 mmHg (75.0-100.0); ABG STANDARD HCO3 26.5 MEQ/L (22.0-26.0); ABG TOTAL CO2 28.5 MEQ/L (23.0-31.0); ABG pH (ARTERIAL) 7.414 UNITS (7.350-7.450)
[2021-06-05 05:43] LABS: HEMATOCRIT 25.4 % (36.0-47.0); HEMOGLOBIN 8.3 g/dl (12.0-15.5); MEAN CORPUSCULAR HEMOGLOBIN 28.7 pg (27.0-33.0); MEAN CORPUSCULAR HGB CONC 32.7 g/dl (32.0-36.5); MEAN CORPUSCULAR VOLUME 87.9 fl (80.0-96.0); PLATELET COUNT, AUTOMATED 233 10^3/uL (150-450); RED BLOOD COUNT 2.89 10^6/uL (4.00-5.40)
[2021-06-05 06:02] LABS: CREATININE FOR GFR 1.16 MG/DL (0.55-1.30); GLOMERULAR FILTRATION RATE 49.5 (>45); POTASSIUM SERUM 3.3 MEQ/L (3.5-5.1)
[2021-06-05] MEDS: LevoFLOXacin 750 MG TABLET PO SCH (06:10)
[2021-06-05] MEDS: SODIUM CHLORIDE 0.9% INJ 10 ML SYR IV SCH ×2 (06:10→18:00)
--- NOTE | 2021-06-05 06:39 | REPVR ---
PROCEDURE INFORMATION: Exam: XR Chest Exam date and time: 06/05/2021 4:33 AM Age: 70 years old Clinical indication: Other: Hypoxemia TECHNIQUE: Imaging protocol: XR of the chest. Views: 1 view. COMPARISON: CR PORTABLE CHEST X-RAY 06/03/2021 10:30 PM FINDINGS: Tubes, catheters and devices: Right-sided PICC line is stable in position with its tip in the region of the right subclavian vein. Overlying EKG leads. Lungs: Persistent bilateral ground-glass and consolidative airspace opacities. Improving airspace opacity within the right upper lobe and peripheral right lower lung. Increasing consolidation at the retrocardiac lung bases. Pleural spaces: Possible small bilateral pleural effusions, unchanged. No pneumothorax. Heart/Mediastinum: Cardiomediastinal silhouette is stable. Bones/joints: Bones are stable. IMPRESSION: Bilateral airspace disease consistent with pulmonary edema and/or pneumonia. Some improvement in the airspace disease within the right lung, however, there is increasing consolidation at the retrocardiac lung bases. Electronically signed by: Chilango Barahona On 06/05/2021 06:39:04 AM
[2021-06-05] MEDS ORDERED: NS 500 ML IV ONE (07:15)
[2021-06-05] MEDS: predniSONE 10 MG TAB PO SCH (08:06)
[2021-06-05] MEDS: DOXYCYCLINE HYCLATE 100MG TABLET PO SCH ×2 (08:06→20:35)
[2021-06-05] MEDS: LIDOCAINE 5% (LIDODERM) PATCH TD SCH (08:06)
[2021-06-05] MEDS: oxyBUTYnin *DITROPAN XL* 5 MG TABCR PO SCH (08:06)
[2021-06-05] MEDS: DOCUSATE SODIUM 100MG CAPSULE PO SCH ×2 (08:06→20:36)
[2021-06-05] MEDS ORDERED: NS 250 ML IV ONE (09:55)
[2021-06-05] MEDS: HEPARIN DRIP 25,000 UNITS in IV 1 EA IV SCH (12:02)
--- NOTE | 2021-06-05 13:06 | CR.PDOC ---
General Date of Consultation: Jun 05, 2021 Consultation REASON FOR CRITICAL CARE CONSULTATION/CHIEF COMPLAINT: Respiratory failure HISTORY OF PRESENT ILLNESS: 70-year-old female with past medical history below and recent hospitalization for Covid pneumonia who was then discharged on tapering doses of prednisone presents again to the hospital for syncopal episode. On admission patient was septic from an unknown source and was started on broad-spectrum antibiotics. She was also found to be anemic and received 3 units of PRBC. She also received several liters of IV fluids and and since admission her weight is up 3 kg and she has a fluid balance that is 6 L positive. During her hospitalization here she she started to have increasing oxygen requirements and she then had a BNP of 15,000 and it was suspected that she may have been in decompensated heart failure and she was thus started on Lasix. Her respiratory status continued to decline to the point where she needed Vapotherm 100/40 and today she was noted to need BiPAP. Because of her worsening oxygen requirements she was started on heparin drip for presumed PE. She is also became hypotensive and her diuretics were held and she received 1.25 L this morning. Patient is seen and examined at bedside. It is difficult to take a history from her as she is dependent on the NIV. She is not in any distress. She is on BiPAP 15/10 with an FiO2 of 100%. Her SPO2 is 94%. PAST MEDICAL/SURGICAL HISTORY: Hypertension, CKD, cholecystectomy, , hysterectomy, tubal ligation FAMILY HISTORY: Father had stroke and CHF. Mother no significant past medical history. SOCIAL HISTORY: Denies smoker, alcohol, illicit drug use. ALLERGIES: Please see below. HOME MEDICATIONS: Please see below. REVIEW OF SYSTEMS: Unable to obtain as the patient is on noninvasive positive pressure ventilation. PHYSICAL EXAMINATION: VITAL SIGNS: Please see below. GENERAL APPEARANCE: Noticed. Alert and awake. HEENT: no thyromegaly, trachea midline, PERRLA. normal mucous membranes RESPIRATORY: On BiPAP. Crackles bilateral CARDIOVASCULAR: +s1 s2, no murmurs. ABDOMEN: nontender, not distended, +BS EXTREMITIES: no edema or erythema. palpable distal pulses SKIN: no rash, no purpura NEUROLOGICAL: no sensory or motor deficits, orientedx3. LABS/IMAGING: Chest x-ray today shows unchanged bilateral opacities. Lower extremity ultrasound shows there is no evidence of DVT. ASSESSMENT: The most critical problems requiring my immediate presence at bedside are: 1. Acute hypoxic respiratory failure secondary to Covid pneumonia with suspected component of pulmonary edema/volume overload as she has significantly positive fluid balance and elevated BNP 2. Sepsis present on admission 3. Community-acquired pneumonia with risk factors for multidrug-resistant organisms, MRSA nare positive, procalcitonin 0.06 4. Anemia with no evidence of GI bleed status post PRBC transfusion 5. Suspected PE given tachycardia, hypotension and increasing oxygen requirements, elevated D-dimer, however lower extremity ultrasound is negative for DVT PLAN: * Continue with BiPAP for now 15/10 and titrate down FiO2 as tolerated to maintain SPO2 92 to 96%. Can alternate BiPAP and Vapotherm if tolerates. * PE is unlikely based on Wells score but can continue heparin drip for now as D -dimer is very elevated however it is nonspecific. Agree with obtaining CTA of the chest. Also will help evaluate the lung parenchyma and if there is significant groundglass opacities then would recommend to increase her steroids. * Patient was aggressively diuresed yesterday and today she had hypotension so would hold off on Lasix today, her blood pressure improved with 1 L bolus. When she is more hemodynamically stable then can resume diuretics. * Check 2D echo. * Monitor PTT while on heparin * Patient is currently on tapering dose of prednisone from prior hospitalization for respiratory failure from Covid and she is also status post baricitinib and remdesivir from prior hospitalization. * Continue with broad-spectrum antibiotics, follow-up cultures * DVT prophylaxis Critical care time spent on including procedures, 41 minutes. Thank you for the courtsey of this consult. Please text me on Vocera for any questions or concerns. Robson Van MD Pulmonary/Critical Care Vital Signs/I&O Vital Signs Date Time Temp Pulse Resp B/P (MAP) Pulse Ox O2 Delivery O2 Flow Rate FiO2 06/05/21 11:30 123 93/54 (67) 94 NIPPV (BIPAP/CPAP) 100 06/05/21 08:00 99.0 50 06/05/21 02:00 40.0 I&O- Last 24 Hours up to 6 AM 06/05/21 06:00 Intake Total 953 ml Output Total 2970 ml Balance -2017 ml Laboratory Data Labs 24H Laboratory Tests 2 06/04/21 21:23: Activated Partial Thromboplast Time 135.9*H 06/04/21 21:24: Immature Granulocyte % (Auto) 2.4, Neutrophils (%) (Auto) 87.5H, Lymphocytes (%) (Auto) 1.7L, Monocytes (%) (Auto) 8.3H, Eosinophils (%) (Auto) 0.0, Basophils (%) (Auto) 0.1, Neutrophils # (Auto) 24.0H, Lymphocytes # (Auto) 0.5L, Monocytes # (Auto) 2.3H, Eosinophils # (Auto) 0.0, Basophils # (Auto) 0.0, Nucleated Red Blood Cells % (auto) 0.0 06/05/21 01:29: Nucleated Red Blood Cells % (auto) 0.1H 06/05/21 04:23: Blood Gas Bicarbonate Standard 26.5H, Arterial Blood pH 7.414, Arterial Blood Partial Pressure CO2 43.5, Arterial Blood Partial Pressure O2 66.8L, Arterial Blood Total CO2 28.5, Arterial Blood HCO3 27.2H, Arterial Blood Base Excess 2.4H, Arterial Blood Oxygen Saturation 92.9L 06/05/21 04:59: Nucleated Red Blood Cells % (auto) 0.1H, Anion Gap 10, Glomerular Filtration Rate 49.5, Calcium Level 8.0L 06/05/21 05:00: Activated Partial Thromboplast Time 72.6H 06/05/21 12:06: CBC/BMP Laboratory Tests 06/04/21 21:24 06/05/21 01:29 06/05/21 04:59 Microbiology Microbiology 06/02/21 Blood Culture - Preliminary, Resulted No Growth after 48 hours. All Specime... 06/02/21 Blood Culture - Preliminary, Resulted No Growth after 48 hours. All Specime... Allergies Coded Allergies: cephalexin (Verified Allergy, Intermediate, hives, 11/27/18) Home Medications Scheduled Ergocalciferol (Vitamin D2) (Vitamin D2) 50,000 Units Cap, 50,000 UNITS PO 1XWK, (Reported) ON WEDNESDAYS Omeprazole (Omeprazole) 20 Mg Capsule.dr, 20 MG PO DAILY, (Reported) Oxybutynin Chloride (Oxybutynin Chloride ER) 10 Mg Tab, 10 MG PO DAILY, (Reported) Prednisone (Prednisone) 10 Mg Tablet, 10 MG PO TAPER, (Reported) Take 4 tabs daily x 3 days, then 3 tabs daily x 3 days, then 2 tabs daily x 3 days, then 1 tab daily x 3 days and stop ROBSON VAN MD Jun 05, 2021 13:06
[2021-06-05] MEDS ORDERED: PERCOCET 5MG/325MG TAB PO PRN (14:00)
--- NOTE | 2021-06-05 16:22 | IPNPDOC ---
Subjective Date Seen The patient was seen on 06/05/21. Subjective Chief Complaint/HPI Mrs. Estrella is a 70 year old female who was recently admitted for COVID pneumonia and syncope returns for syncope 2/2 hypotension and symptomatic anemia. Yesterday, her oxygen requirements increased from 4 L up to Vapotherm. Her BNP was elevated at 15,788. CRP increased to 7.41. D-dimers were greater than 4000. Patient was also tachycardic. Patient was started on diuretics. That evening, patient required BiPAP. Otherwise, she was also hypotensive, received a total of 1 L normal saline. Diuretics were discontinued. This morning, when I saw patient, she was on BiPAP. While on BiPAP, she denies any chest pain or dyspnea. Her blood pressure was low and I gave her another 250 mL bolus which gave her a total of 1.25 L today. I consulted pulm/critical care, recommendations appreciated. Otherwise, daughter had concerns about the cast. I reached out to patient's orthopedic provider CHACHA Worthington. Due to patient's unstable condition, recommended continued cast until she is more stable. I relayed this information to the daughter. Objective Physical Examination General Exam: Positive: Alert, Cooperative Eye Exam: Positive: EOMI; Negative: Sclera icteric ENT Exam: Positive: Atraumatic Neck Exam: Positive: Supple Chest Exam: Positive: Rhonchi Heart Exam: Positive: Tachycardic, Regular Rhythm Abdomen Exam: Positive: Normal bowel sounds, Soft Psych Exam: Positive: Mental status NL, Mood NL Assessment /Plan Assessment Mrs. Estrella is a 70 year old female who was recently admitted for COVID pneumonia and syncope returns for syncope 2/2 hypotension and symptomatic anemia. Her anemia has responded to the transfusion and not declined. Otherwise patient's oxygen requirements have decreased. Unclear if this is secondary to iatrogenic fluid overload versus PE versus worsening Covid. Unable to do CT angio chest as she is unstable. Will be until she is more stable to o btain a CT angio chest. Will empirically treat for PE. Pulmonary/critical care was consulted, recommendations appreciated. Plan/VTE VTE Prophylaxis Ordered?: Yes Plan 1. Acute hypoxic respiratory failure requiring BiPAP Possibly secondary to PE versus iatrogenic CHF versus worsening Covid Patient empirically on heparin drip Echocardiogram ordered, pending echo read. Pulmonary care consulted, recommendations appreciated 2. Suspected PE Patient has had a long hospitalization. Due to the acute anemia, anticoagulation was held. Patient not stable for CT angio chest We will empirically treat for PE until patient is stable for CT angio chest 3. Syncope secondary to hypotension Patient was hypovolemic. She was given blood and fluids and blood pressure initially improved Patient was thought to be in CHF and was put on diuretics. Patient's blood pressure declined. Diuretics held 4. Symptomatic anemia During hospitalization, patient required 3 units of packed red blood cells H&H is remained stable Continue IV Protonix 5. SIRS versus sepsis Procalcitonin is very low at 0.06 Due to patient hypotension, tachycardia, leukocytosis, and recent hospitalization patient was started on Zosyn and Vanco Due to low procalcitonin, antibiotics were deescalated to doxycycline and levofloxacin Day 4 of antibiotics 6. Covid pneumonia Patient hospitalized for Covid pneumonia Patient completed remdesivir and 11 days of baricitinib Continue with prednisone taper Continue with isolation precautions 7. Recent left arm fracture Patient is neurovascularly intact. Hands felt warm with good strength Patient's orthopedic provider is from [facility]. CHACHA Worthington I spoke with CHACHA Worthington. Is not urgent to have the cast removed. When the patient is more stable, can consider cast removal 8. GERD Continue Protonix 9. DVT prophylaxis Currently on heparin drip Disposition: Pending clinical improvement VS, I&O, 24H, Opal Vital Signs/I&O Vital Signs Date Time Temp Pulse Resp B/P (MAP) Pulse Ox O2 Delivery O2 Flow Rate FiO2 06/05/21 15:48 90 06/05/21 14:00 116 90/56 (67) 96 NIPPV (BIPAP/CPAP) 06/05/21 12:00 98.9 40 06/05/21 02:00 40.0 I&O- Last 24 Hours up to 6 AM 06/05/21 05:59 Intake Total 953 ml Output Total 3360 ml Balance -2407 ml Laboratory Data 24H LABS Laboratory Tests 2 06/04/21 21:23: Activated Partial Thromboplast Time 135.9*H 06/04/21 21:24: Immature Granulocyte % (Auto) 2.4, Neutrophils (%) (Auto) 87.5H, Lymphocytes (%) (Auto) 1.7L, Monocytes (%) (Auto) 8.3H, Eosinophils (%) (Auto) 0.0, Basophils (%) (Auto) 0.1, Neutrophils # (Auto) 24.0H, Lymphocytes # (Auto) 0.5L, Monocytes # (Auto) 2.3H, Eosinophils # (Auto) 0.0, Basophils # (Auto) 0.0, Nucleated Red Blood Cells % (auto) 0.0 06/05/21 01:29: Nucleated Red Blood Cells % (auto) 0.1H 06/05/21 04:23: Blood Gas Bicarbonate Standard 26.5H, Arterial Blood pH 7.414, Arterial Blood Partial Pressure CO2 43.5, Arterial Blood Partial Pressure O2 66.8L, Arterial Blood Total CO2 28.5, Arterial Blood HCO3 27.2H, Arterial Blood Base Excess 2.4H, Arterial Blood Oxygen Saturation 92.9L 06/05/21 04:59: Nucleated Red Blood Cells % (auto) 0.1H, Anion Gap 10, Glomerular Filtration Rate 49.5, Calcium Level 8.0L 06/05/21 05:00: Activated Partial Thromboplast Time 72.6H 06/05/21 12:06: Activated Partial Thromboplast Time 77.9H CBC/BMP Laboratory Tests 06/04/21 21:24 06/05/21 01:29 06/05/21 04:59 Microbiology Microbiology 06/02/21 Blood Culture - Preliminary, Resulted No Growth after 48 hours. All Specime... 06/02/21 Blood Culture - Preliminary, Resulted No Growth after 48 hours. All Specime... CROW FITZGERALD DO Jun 05, 2021 16:22
[2021-06-05] MEDS: PANTOPRAZOLE 40MG VIAL (C9113 PER 1) IV SCH (20:35)
[2021-06-05] MEDS: **NOTE PATIENT COMMENT** MISC XX SCH (20:42)
[2021-06-06] VITALS (81 sets, daily range): BP systolic 75–117; BP diastolic 48–68
[2021-06-06 04:43] LABS: HEMATOCRIT 23.7 % (36.0-47.0); HEMOGLOBIN 7.7 g/dl (12.0-15.5); MEAN CORPUSCULAR HEMOGLOBIN 28.5 pg (27.0-33.0); MEAN CORPUSCULAR HGB CONC 32.5 g/dl (32.0-36.5); MEAN CORPUSCULAR VOLUME 87.8 fl (80.0-96.0); PLATELET COUNT, AUTOMATED 198 10^3/uL (150-450); WHITE BLOOD COUNT 26.8 10^3/uL (4.0-10.0)
[2021-06-06 06:04] LABS: BLOOD UREA NITROGEN 41 MG/DL (7-18); CALCIUM LEVEL 8.1 MG/DL (8.8-10.2); CARBON DIOXIDE LEVEL 26 MEQ/L (21-32); CHLORIDE LEVEL 105 MEQ/L (98-107); CREATININE FOR GFR 0.97 MG/DL (0.55-1.30); GLOMERULAR FILTRATION RATE > 60.0 (>45); GLUCOSE, FASTING 87 MG/DL (70-100); MAGNESIUM LEVEL 1.5 MG/DL (1.8-2.4); POTASSIUM SERUM 3.4 MEQ/L (3.5-5.1); SODIUM LEVEL 140 MEQ/L (136-145)
[2021-06-06] MEDS: SODIUM CHLORIDE 0.9% INJ 10 ML SYR IV SCH ×2 (06:14→18:00)
[2021-06-06 06:15] LABS: ABG BASE EXCESS 0.5 (-2.0-2.0); ABG HCO3 25.4 MEQ/L (22.0-26.0); ABG O2 SATURATION 88.7 % (95.0-99.0); ABG PARTIAL PRESSURE CO2 41.6 mmHg (35.0-45.0); ABG PARTIAL PRESSURE O2 56.5 mmHg (75.0-100.0); ABG STANDARD HCO3 24.8 MEQ/L (22.0-26.0); ABG TOTAL CO2 26.6 MEQ/L (23.0-31.0); ABG pH (ARTERIAL) 7.403 UNITS (7.350-7.450)
[2021-06-06] MEDS ORDERED: ETOMIDATE INJ 20MG/10ML VIAL As Ordered ONE (06:42)
[2021-06-06] MEDS ORDERED: SUCCINYLCHOLINE INJ 200 MG/10 ML VIAL (J0330) As Ordered ONE (06:42)
[2021-06-06] MEDS ORDERED: MIDAZOLAM INJ 2MG/2ML VIAL (J2250 PER 1MG) IV STA ×2 (06:45→07:25)
[2021-06-06] MEDS ORDERED: MIDAZOLAM INJ 2MG/2ML VIAL (J2250 PER 1MG) As Ordered ONE ×2 (06:55→07:01)
[2021-06-06] MEDS ORDERED: NOREPINEPHRINE 4 MG/4 ML AMP As Ordered ONE (07:01)
[2021-06-06] MEDS ORDERED: REFRIGERATOR IV KEYS XX PRN (07:10)
[2021-06-06] MEDS ORDERED: CISATRACURIUM 10MG/ML 20 ML VIAL IV ONE (07:20)
[2021-06-06] MEDS ORDERED: CISATRACURIUM 10MG/ML 20 ML VIAL As Ordered ONE (07:23)
[2021-06-06] MEDS ORDERED: NOREPINEPHRINE BITARTRATE 8 MG in D5W 492 ML IV SCH (07:30)
[2021-06-06] MEDS ORDERED: SENNA 8.6 MG TAB (SENOKOT) PO PRN (07:45)
[2021-06-06] MEDS ORDERED: CISATRACURIUM 200 MG in NS 480 ML IV SCH (08:00)
[2021-06-06] MEDS ORDERED: MIRALAX *UNIT DOSE* 17GM PACKET GT PRN (08:15)
[2021-06-06] MEDS ORDERED: SENNA 8.6 MG TAB (SENOKOT) GT PRN (08:15)
[2021-06-06] MEDS ORDERED: MAGNESIUM OXIDE 400MG TAB (MAG-OX) NG ONE (08:15)
[2021-06-06] MEDS ORDERED: POTASSIUM CHLORIDE 10% LIQ 20 MEQ/15 ML UDC PO ONE (08:30)
[2021-06-06 08:36] LABS: ABG BASE EXCESS -1.4 (-2.0-2.0); ABG HCO3 22.9 MEQ/L (22.0-26.0); ABG O2 SATURATION 95.4 % (95.0-99.0); ABG PARTIAL PRESSURE O2 81.2 mmHg (75.0-100.0); ABG STANDARD HCO3 23.2 MEQ/L (22.0-26.0); ABG TOTAL CO2 24.1 MEQ/L (23.0-31.0)
[2021-06-06] MEDS: CHLORHEXIDINE GLUCONATE 0.12 % 15ML UDC (PERIDEX ORAL RINSE) MT SCH ×2 (08:53→22:38)
--- NOTE | 2021-06-06 08:53 | REP ---
INDICATION: intubation. COMPARISON: Portable chest, 06/05/2021. TECHNIQUE: AP portable chest image was obtained. FINDINGS: There is mixed interstitial and alveolar airspace disease consistent with congestive heart failure with pulmonary edema. There is superimposed atelectasis or pneumonia in the mid and lower lung zones on the left and the upper lung zone on the right. There are probable bilateral pleural effusions. There has been interval placement of an endotracheal tube, with the tip approximately 3 cm above the kathia. There is a right PICC line with the tip in the area of the right subclavian vein. IMPRESSION: 1. Mixed interstitial and alveolar lung disease consistent with congestive heart failure with superimposed atelectasis or pneumonia as described. Not significantly changed. 2. Interval placement of an endotracheal tube which appears in good position. 3. Other findings as noted not significantly changed. <Electronically signed by Silvino Garcia > 06/06/21 [id number]
[2021-06-06] MEDS: dexameTHASONE 4 MG/ML 1ML VIAL (J1100 PER 1MG) IV SCH ×2 (08:54→22:38)
[2021-06-06] MEDS: LIDOCAINE 5% (LIDODERM) PATCH TD SCH (08:54)
[2021-06-06] MEDS: DOCUSATE SOD LIQ 100MG/10ML UDC GT SCH ×2 (08:54→22:38)
[2021-06-06] MEDS ORDERED: DOXYCYCLINE HYCLATE 100MG TABLET GT SCH (09:00)
[2021-06-06] MEDS ORDERED: CHLORHEXIDINE GLUCONATE 0.12 % 15ML UDC (PERIDEX ORAL RINSE) MT SCH (09:00)
[2021-06-06] MEDS ORDERED: CHLORHEXIDINE GLUCONATE 0.12 % 15ML UDC (PERIDEX ORAL RINSE) SSP SCH ×2 (09:00)
[2021-06-06] MEDS: MIDAZOLAM INJ 2MG/2ML VIAL (J2250 PER 1MG) IV PRN ×2 (09:30→11:15)
[2021-06-06] MEDS: fentaNYL CITRATE 1,000 MCG in NS 80 ML IV SCH (09:31)
[2021-06-06] MEDS: MIDAZOLAM HCL 100 MG in D5W 80 ML IV SCH (09:32)
--- NOTE | 2021-06-06 10:18 | REP ---
INDICATION: OGT placement. COMPARISON: Portable chest, 06/06/2021, 7:15 a.m. TECHNIQUE: AP portable chest image was obtained. FINDINGS: There is again noted mixed interstitial and alveolar airspace disease consistent with congestive heart failure and pulmonary edema. There is superimposed atelectasis or pneumonia in the mid and lower lung zones on the left in the upper lung zone on the right. There are probable bilateral pleural effusions. There has been interval development of pneumomediastinum and pneumopericardium. There has been interval placement of a nasogastric tube. The endotracheal tube and right PICC line are unchanged in position. IMPRESSION: 1. There has been interval development of pneumomediastinum and pneumopericardium. No pneumothoraces are evident at this time. 2. There has been interval placement of a nasogastric tube. 3. Other findings not significantly changed. Incidental Findings: Interval development of pneumomediastinum and pneumopericardium. The critical information above was relayed directly by me by telephone to the [facility] ICU on 06/06/2021 at 10:14 am with readback verification. <Electronically signed by Silvino Garcia > 06/06/21 [id number]
[2021-06-06] MEDS ORDERED: fentaNYL 100 MCG/2 ML INJECTION (J3010) As Ordered ONE (11:17)
[2021-06-06] MEDS ORDERED: fentaNYL 100 MCG/2 ML INJECTION (J3010) IV ONE (11:25)
--- NOTE | 2021-06-06 11:59 | REP ---
INDICATION: line placement. COMPARISON: AP portable chest 06/06/2021, 9:57 a.m. TECHNIQUE: AP portable chest image was obtained. FINDINGS: There is again noted pneumomediastinum and pneumopericardium. Mixed airspace and alveolar lung disease bilaterally again noted. There is a new right internal jugular deep line with the tip in the area of the superior vena cava. Endotracheal tube nasogastric tube and right PICC line are unchanged. IMPRESSION: 1. New right IJ deep line. 2. Other findings as noted, not significantly changed. <Electronically signed by Silvino Garcia > 06/06/21 [id number]
[2021-06-06] MEDS ORDERED: LR 1,000 ML IV ONE (12:00)
--- NOTE | 2021-06-06 12:44 | IPNPDOC ---
Text Note Date of Service The patient was seen on 06/06/21. NOTE CRITICAL CARE PROGRESS NOTE: SUBJECTIVE: Patient seen and examined at bedside. Overnight patient was dependent on noninvasive ventilation and this morning she was intubated for progressive tachypnea and hypoxia. Patient is on Versed, fentanyl. Following intubation she required low-dose Levophed. All other ROS are negative except as mentioned above PHYSICAL EXAMINATION: VITAL SIGNS: Please see below. GENERAL APPEARANCE: Intubated HEENT: no thyromegaly, trachea midline, PERRLA. normal mucous membranes RESPIRATORY: Crackles bilateral, good air entry. CARDIOVASCULAR: +s1 s2, no murmurs. ABDOMEN: nontender, not distended, +BS EXTREMITIES: no edema or erythema. palpable distal pulses SKIN: no rash, no purpura NEUROLOGICAL: no sensory or motor deficits, orientedx3. PERTINENT LABS/IMAGING: Chest x-ray shows bilateral opacities, pneumomediastinum however no overt pneumothorax. Right central line, ET tube and OG tube are in satisfactory position. ASSESSMENT: 1. Acute hypoxic respiratory failure secondary to Covid pneumonia with suspected component of pulmonary edema/volume overload as she has significantly positive fluid balance and elevated BNP 2. Sepsis present on admission 3. Community-acquired pneumonia with risk factors for multidrug-resistant organisms, MRSA nare positive, procalcitonin 0.06 4. Anemia with no evidence of GI bleed status post PRBC transfusion PLAN: [employer]: Light sedation with Versed and fentanyl. PULM: HOB 30 degrees. Maintain Sp02 94-98%. Titrate down oxygen as tolerated. Vent changes: FiO2 80% PEEP 10 rate 25 tidal volume 370. ARDS protocol with low tidal volume ventilation strategy. Decadron 6 mg IV every 12. CARDIO: Follow-up echo report. Maintain MAPs 60-65. 1 L LR bolus for now. Titrate down Levophed as tolerated. GI: OG feeds RENAL: Replete potassium ID: [id number] Levaquin and doxycycline. Broaden coverage with Vanco and meropenem. Deep tracheal aspirate. ENDO: Monitor FS per routine. Goal range 140-180. [] HEME: Lovenox 50 mg every 12 for DVT prophylaxis LINES/CATHETERS: Chambers catheter and right IJ central line DVT/GI PPX CODE STATUS: Full code. DISPOSITION: Requires monitoring in the ICU. VS,Fishbone, I+O VS, Fishbone, I+O Laboratory Tests 06/06/21 04:32 Vital Signs Date Time Temp Pulse Resp B/P (MAP) Pulse Ox O2 Delivery O2 Flow Rate FiO2 06/06/21 12:15 126 82/49 (60) 93 06/06/21 12:00 100 06/06/21 11:45 Ventilator 06/06/21 11:00 25 06/06/21 08:00 99.3 06/05/21 22:30 40.0 I&O- Last 24 Hours up to 6 AM 06/06/21 06:00 Intake Total 570 ml Output Total 865 ml Balance -295 ml NEGRITA MILAN MD Jun 06, 2021 12:44
[2021-06-06] MEDS ORDERED: VANCOMYCIN HCL 1,500 MG in IV FLUID PLACE HOLDER 1 EA IV SCH (13:20)
[2021-06-06] MEDS: MEROPENEM INJ 1 GM in IV 1 EA IV SCH ×2 (14:29→22:39)
--- NOTE | 2021-06-06 14:43 | IPNPDOC ---
Subjective Date Seen The patient was seen on 06/06/21. Subjective Chief Complaint/HPI Mrs. Estrella is a 70 year old female who was recently admitted for COVID pneumonia and syncope returns for syncope 2/2 hypotension and symptomatic anemia. Overnight, patient did not do well. She was intubated this morning and central line placed. I have called family and notified them of patient's intubation. [facility], CHACHA Worthington reached out to me. He said we can obtain XR of left arm on Tuesday or Tuesday and determine if the caste is okay to removed. I notified Jose Enrique that patient was intubated. Jose Enrique said that if we need anything, we can reach out to him at [facility]. He was okay with obtaining imaging of the left arm on Tuesday or Tuesday. Otherwise, I spoke with pulmonary/critical care. They will be primary while patient is intubated. Hospitalist group will sign off at this time. When patient is extubated, please reach out to our group. Objective Physical Examination General Exam: Negative: Alert (Intubated and sedated) Chest Exam: Positive: Rhonchi Heart Exam: Positive: Tachycardic, Regular Rhythm Abdomen Exam: Positive: Normal bowel sounds Neuro Exam: Positive: Other (unable to assess as patient was intubated and sedated) Psych Exam: Positive: Other (unable to assess as patient was intubated and sedated) Assessment /Plan Assessment Mrs. Estrella is a 70 year old female who was recently admitted for COVID pneumonia and syncope returns for syncope 2/2 hypotension and symptomatic anemia. Her anemia has responded to the transfusion and not declined. Otherwise patient's oxygen requirements have decreased. Unclear if this is secondary to iatrogenic fluid overload versus PE versus worsening Covid. Unable to do CT angio chest as she is unstable. Will be until she is more stable to obtain a CT angio chest. Will empirically treat for PE. Pulmonary/critical car e was consulted, recommendations appreciated. Plan/VTE VTE Prophylaxis Ordered?: Yes Plan 1. Acute hypoxic respiratory failure requiring ventilation Possibly secondary to PE versus iatrogenic CHF versus worsening Covid Patient on Lovenox twice daily Pending echocardiogram read Patient on ventilator. Pulmonology/critical care now is managing patient 2. Suspected PE Patient has had a long hospitalization. Due to the acute anemia, anticoagulation was held. Patient not stable for CT angio chest Patient has been put on Lovenox twice daily 3. Syncope secondary to hypotension Patient was hypovolemic. She was given blood and fluids and blood pressure initially improved Patient was thought to be in CHF and was put on diuretics. Patient's blood pressure declined. Diuretics held 4. Symptomatic anemia During hospitalization, patient required 3 units of packed red blood cells H&H is remained stable Continue IV Protonix 5. SIRS versus sepsis Procalcitonin is very low at 0.06 Due to patient hypotension, tachycardia, leukocytosis, and recent hospitalization patient was started on Zosyn and Vanco Due to low procalcitonin, antibiotics were deescalated to doxycycline and levofloxacin. Since patient was intubated, antibiotics were broadened to vancomycin and meropenem day 1 6. Covid pneumonia Patient hospitalized for Covid pneumonia Patient completed remdesivir and 11 days of baricitinib Steroids were increased to dexamethasone twice a day Continue with isolation precautions 7. Recent left arm fracture Patient is neurovascularly intact. Hands felt warm with good strength Patient's orthopedic provider is from [facility]. CHACHA Worthington I spoke with CHACHA Worthington. Is not urgent to have the cast removed. When the patient is more stable, can consider cast removal PA called again on 06/06/2021. Recommended obtaining imaging of left arm on Tuesday or Tuesday 8. GERD Continue Protonix 9. DVT prophylaxis Lovenox twice a day Disposition: Since patient is intubated and sedated, pulmonology/critical care will be managing patient. Hospitalist team will sign off at this time. When patient is extubated, please reach out to our group VS, I&O, 24H, Opal Vital Signs/I&O Vital Signs Date Time Temp Pulse Resp B/P (MAP) Pulse Ox O2 Delivery O2 Flow Rate FiO2 06/06/21 13:55 126 29 94 70 06/06/21 12:30 85/52 (63) Ventilator 06/06/21 12:00 98.3 06/05/21 22:30 40.0 I&O- Last 24 Hours up to 6 AM 06/06/21 06:00 Intake Total 570 ml Output Total 865 ml Balance -295 ml Laboratory Data 24H LABS Laboratory Tests 2 06/06/21 04:32: Nucleated Red Blood Cells % (auto) 0.1H, Activated Partial Thromboplast Time 99.5H, Anion Gap 9, Glomerular Filtration Rate > 60.0, Calcium Level 8.1L, Magnesium Level 1.5L 06/06/21 05:39: Blood Gas Bicarbonate Standard 24.8, Arterial Blood pH 7.403, Arterial Blood Partial Pressure CO2 41.6, Arterial Blood Partial Pressure O2 56.5L, Arterial Blood Total CO2 26.6, Arterial Blood HCO3 25.4, Arterial Blood Base Excess 0.5, Arterial Blood Oxygen Saturation 88.7L 06/06/21 08:23: Blood Gas Bicarbonate Standard 23.2, Arterial Blood pH 7.410, Arterial Blood Partial Pressure CO2 37.0, Arterial Blood Partial Pressure O2 81.2, Arterial Blood Total CO2 24.1, Arterial Blood HCO3 22.9, Arterial Blood Base Excess -1.4, Arterial Blood Oxygen Saturation 95.4 CBC/BMP Laboratory Tests 06/06/21 04:32 Microbiology Microbiology 06/02/21 Blood Culture - Preliminary, Resulted No Growth after 72 hours. All specime... 06/02/21 Blood Culture - Preliminary, Resulted No Growth after 72 hours. All specime... CROW FITZGERALD DO Jun 06, 2021 14:43
--- NOTE | 2021-06-06 14:50 | ECHO ---
ECHOCARDIOGRAM DATE OF PROCEDURE: 06/03/2021 Age: 70 Gender: Female Height: 157 cm Weight: 99 kilos REFERRING PROVIDER: Liam Pendleton M.D. PATIENT LOCATION: Room 4109. REASON FOR THE TESTING: Edema, COVID-19. MEASUREMENTS: 2D Measurements: IVS 1.2 cm LV 4.2 cm LVPW 1.2 cm LA 3.4 cm Aorta 3.3 cm IVC 1.35 cm Doppler Measurements: Peak velocity across the aortic valve 3.0 m/sec Peak velocity across the LVOT 1.1 m/sec Mitral E 1.6 Maximum tricuspid valve velocity 3.2 m/sec 2D COMMENTS: 1. Normal left ventricular size, wall thickness and normal global left ventricular systolic function. The estimated left ventricular systolic ejection fraction is 60-65%. 2. Normal left atrium. Normal right atrium and right ventricle. 3. The atrial septum appeared to be normal without evidence of defect or shunt. 4. Normal aortic root. 5. A small pericardial effusion was noted. No evidence of cardiac tamponade. 6. Moderately calcified aortic valve. Leaflet excursion was not well visualized. Mildly calcified mitral annulus with normal anterior mitral valve leaflet motion. Normal tricuspid valve and pulmonic valve. The proximal pulmonary artery branches were not well visualized. 7. The inferior vena cava was normal in size. Central venous pressure was most likely normal. DOPPLER: It detects probably moderate aortic regurgitation noted in limited views, moderate mitral regurgitation and mild to moderate tricuspid regurgitation. The proximal calculated pulmonary artery systolic pressure varies between 40-50 mmHg. There are findings suggestive of grade one left ventricular diastolic dysfunction. IMPRESSION: 1. Normal global left ventricular systolic function with findings suggestive of grade 1 left ventricular diastolic dysfunction. 2. Aortic valve sclerosis with moderate aortic regurgitation and probably moderate aortic stenosis. 3. Mitral annulus calcification with moderate eccentric mitral regurgitation. Cannot rule out anterior mitral valve leaflet prolapse. 4. Mild to moderate tricuspid regurgitation with moderate pulmonary hypertension. 5. A small pericardial effusion was noted. No evidence of cardiac tamponade. 6. The above findings were discussed with patient's hospitalist earlier today, Dr. Pendleton.
[2021-06-06] MEDS: VANCOMYCIN HCL 1,000 MG, VIAL MATE ADAPTER 1 EACH in NS 250 ML IV SCH (15:00)
--- NOTE | 2021-06-06 15:24 | ROOPDOC ---
[facility] Report Of Operation Report of Operation INDICATION: Need for emergent venous access PROCEDURE: Right internal jugular triple-lumen catheter placement PROCEDURE DATA ENTRY REPRESENTATIVE: Dr. Van CONSENT: Consent was implied as this procedure was done under emergency circumstances PROCEDURE SUMMARY: A time out was performed. My hands were washed immediately prior to the procedure. I wore a surgical cap, mask with protective eyewear, full gown and sterile gloves throughout the procedure. The patient was placed in Trendelenburg position. The right chest region was prepped using chlorhexidine scrub and draped in sterile fashion using a full drape and sterile probe cover and sterile gel employed. The right internal Jugular vein was identified using the ultrasound. Anesthesia was achieved over the vein using 1% lidocaine. Using real-time out of plane guidance, the introducer needle was inserted into the Internal Jugular vein under direct ultrasound visualization. Venous blood was withdrawn. The syringe was removed and a guidewire was advanced into the introducer needle. The guidewire was visualized in the Internal Jugular Vein by ultrasound. A small incision was made at the skin surface with a scalpel and the introducer needle was exchanged for a dilator over the guidewire. After appropriate dilation was obtained, the dilator was exchanged over the wire for a central venous catheter. The wire was removed and the catheter was sutured in place at 17 cm. A sterile shield was placed over the catheter at the insertion site. The patient tolerated the procedure without any hemodynamic compromise. At time of procedure completion, all ports aspirated and flushed properly. Post- procedure chest x-ray line is in good position. Estimated blood loss is 5 cc. NEGRITA VAN MD Jun 06, 2021 15:24
[2021-06-06 15:57] LABS: ABG FIO2 70; ABG MODE OF VENT AC; ABG O2 SATURATION 93.8 % (95.0-99.0); ABG PARTIAL PRESSURE CO2 41.4 mmHg (35.0-45.0); ABG PARTIAL PRESSURE O2 72.7 mmHg (75.0-100.0); ABG PATIENT RESP RATE 28 /MIN; ABG PEEP 10; ABG STANDARD HCO3 23.5 MEQ/L (22.0-26.0); ABG TIDAL VOLUME 320 cc; ABG TOTAL CO2 25.3 MEQ/L (23.0-31.0); ABG pH (ARTERIAL) 7.381 UNITS (7.350-7.450)
[2021-06-06] MEDS ORDERED: VANCOMYCIN HCL 1,000 MG, VIAL MATE ADAPTER 1 EACH in NS 250 ML IV ONE (16:00)
[2021-06-06] MEDS ORDERED: ENOXAPARIN 60MG/0.6ML SYRINGE (J1650 PER 10MG) SC ONE (16:00)
--- NOTE | 2021-06-06 18:13 | ECGEPIP ---
[facility] Test Date: 2021-06-05 Pat Name: GALINA GREENWOOD Department: Room: [place] [address] Gender: Female Setter Off: FUNMI : 1950 Requested By: NEGRITA Renteria Order Number: [id number] Reading MD: Dash Larson Measurements Intervals [place] Rate: 129 P: 16 MT: 132 QRS: -56 QRSD: 116 T: 114 QT: 328 QTc: 480 Interpretive Statements Poor data quality, interpretation may be adversely affected Sinus tachycardia Possible Left atrial enlargement Left anterior fascicular block Left ventricular hypertrophy with QRS widening and repolarization abnormality ( R in aVL , Nguyễn product , Romhilt-Gonzalez ) Lateral infarct , age undetermined Compared to prior tracings in the system No remarkable changes but now faster heart rate Electronically Signed on 06-06-2021 18:13:31 EDT by Dash Larson
[2021-06-06] MEDS: NOREPINEPHRINE BITARTRATE 8 MG in D5W 492 ML IV SCH (19:24)
[2021-06-06] MEDS: **NOTE PATIENT COMMENT** MISC XX SCH (21:00)
[2021-06-06] MEDS ORDERED: ENOXAPARIN 60MG/0.6ML SYRINGE (J1650 PER 10MG) SC SCH (22:00)
[2021-06-06] MEDS: PANTOPRAZOLE 40MG VIAL (C9113 PER 1) IV SCH (22:38)
[2021-06-07] VITALS (59 sets, daily range): BP systolic 81–111; BP diastolic 46–70
[2021-06-07] MEDS: MIDAZOLAM HCL 100 MG in D5W 80 ML IV SCH ×2 (01:41→15:54)
[2021-06-07] MEDS: VANCOMYCIN HCL 1,000 MG, VIAL MATE ADAPTER 1 EACH in NS 250 ML IV SCH ×2 (03:13→14:07)
[2021-06-07] MEDS: fentaNYL CITRATE 1,000 MCG in NS 80 ML IV SCH (04:43)
[2021-06-07] MEDS: ENOXAPARIN 60MG/0.6ML SYRINGE (J1650 PER 10MG) SC SCH ×2 (05:38→18:00)
[2021-06-07] MEDS: MEROPENEM INJ 1 GM in IV 1 EA IV SCH ×3 (05:38→22:14)
[2021-06-07] MEDS: SODIUM CHLORIDE 0.9% INJ 10 ML SYR IV SCH ×2 (05:39→18:00)
[2021-06-07 06:18] LABS: ABG BASE EXCESS -3.6 (-2.0-2.0); ABG HCO3 22.4 MEQ/L (22.0-26.0); ABG O2 SATURATION 91.1 % (95.0-99.0); ABG PARTIAL PRESSURE O2 68.4 mmHg (75.0-100.0); ABG STANDARD HCO3 21.3 MEQ/L (22.0-26.0); ABG TOTAL CO2 23.8 MEQ/L (23.0-31.0); ABG pH (ARTERIAL) 7.315 UNITS (7.350-7.450)
[2021-06-07] MEDS: NOREPINEPHRINE BITARTRATE 8 MG in D5W 492 ML IV SCH ×4 (06:25→15:42)
[2021-06-07 06:30] LABS: HEMATOCRIT 25.2 % (36.0-47.0); HEMOGLOBIN 8.1 g/dl (12.0-15.5); MEAN CORPUSCULAR HEMOGLOBIN 28.5 pg (27.0-33.0); MEAN CORPUSCULAR HGB CONC 32.1 g/dl (32.0-36.5); MEAN CORPUSCULAR VOLUME 88.7 fl (80.0-96.0); PLATELET COUNT, AUTOMATED 263 10^3/uL (150-450); RED BLOOD COUNT 2.84 10^6/uL (4.00-5.40); WHITE BLOOD COUNT 27.5 10^3/uL (4.0-10.0)
[2021-06-07 06:59] LABS: ALBUMIN 1.8 GM/DL (3.2-5.2); BILIRUBIN,TOTAL 0.6 MG/DL (0.2-1.0); CALCIUM LEVEL 8.1 MG/DL (8.8-10.2); CREATININE FOR GFR 1.57 MG/DL (0.55-1.30); GLOMERULAR FILTRATION RATE 34.9 (>45); MAGNESIUM LEVEL 1.8 MG/DL (1.8-2.4); PHOSPHORUS LEVEL 3.2 MG/DL (2.5-4.9); POTASSIUM SERUM 4.5 MEQ/L (3.5-5.1); TOTAL PROTEIN 5.5 GM/DL (6.4-8.2)
[2021-06-07] MEDS: LIDOCAINE 5% (LIDODERM) PATCH TD SCH (08:02)
[2021-06-07] MEDS: dexameTHASONE 4 MG/ML 1ML VIAL (J1100 PER 1MG) IV SCH ×2 (08:07→20:06)
[2021-06-07] MEDS: CHLORHEXIDINE GLUCONATE 0.12 % 15ML UDC (PERIDEX ORAL RINSE) MT SCH ×2 (08:08→20:07)
--- NOTE | 2021-06-07 08:25 | REP ---
INDICATION: intubation. COMPARISON: 06/06/2021 at 11:29 a.m. TECHNIQUE: Portable FINDINGS: The technique utilized in obtaining the radiograph has magnified the cardiac silhouette and accentuated the interstitial markings. The cardiomediastinal silhouette lung olson are unchanged. Diffuse patchy interstitial and airspace opacities are noted status quo. The tubes and lines are unchanged. The osseous structures are unchanged. IMPRESSION: No significant change <Electronically signed by Iban Sierra > 06/07/21 0557
[2021-06-07] MEDS: DOCUSATE SOD LIQ 100MG/10ML UDC GT SCH ×2 (09:44→20:06)
[2021-06-07] MEDS: ACETAMINOPHEN 325 MG/10.15 ML UDC GT PRN (09:44)
--- NOTE | 2021-06-07 10:42 | IPNPDOC ---
Text Note Date of Service The patient was seen on 06/07/21. CRITICAL CARE PROGRESS NOTE: SUBJECTIVE: Patient seen and examined this morning, patient remains on mechanical ventilation. T-max last 24 hours 100.9. Patient is currently on the following drips: Fentanyl 50, Versed 6, levo 11. Fluid balance is +1100 cc, urine output is okay. She is persistently sinus tach into the 120s. There were no overnight events. This morning she was found to have some suspected tube feeds in her mouth that were suctioned and potentially tube feeds coming from her endot rossy tube though it may just be thick secretions however her tube feeds were hold for this concern. She does follow commands on sedation. All other ROS are negative except as mentioned above PHYSICAL EXAMINATION: VITAL SIGNS: Please see below. GENERAL APPEARANCE: Alert on mechanical ventilation HEENT: no thyromegaly, trachea midline, PERRLA. normal mucous membranes RESPIRATORY: Intubated, crackles bilateral CARDIOVASCULAR: Systolic ejection murmur. +s1 s2, ABDOMEN: nontender, not distended, +BS EXTREMITIES: Leg edema bilaterally, palpable distal pulses SKIN: no rash, no purpura NEUROLOGICAL: no sensory or motor deficits, sedated PERTINENT LABS/IMAGING: Chest x-ray this morning no evidence of pneumothorax or pneumomediastinum, ET tube and central lines are in satisfactory position, there are bilateral infiltrates. echo 06/02 1. Normal global left ventricular systolic function with findings suggestive of grade 1 left ventricular diastolic dysfunction. 2. Aortic valve sclerosis with moderate aortic regurgitation and probably moderate aortic stenosis. 3. Mitral annulus calcification with moderate eccentric mitral regurgitation. Cannot rule out anterior mitral valve leaflet prolapse. 4. Mild to moderate tricuspid regurgitation with moderate pulmonary hypertension. 5. A small pericardial effusion was noted. No evidence of cardiac tamponade. ASSESSMENT: 1. Acute hypoxic respiratory failure secondary to Covid pneumonia/ARDS cant rule out bacterial co-infection 2. Sepsis present on admission, persistent leukocytosis 3. Community-acquired pneumonia with risk factors for multidrug-resistant organisms, MRSA nare positive 4. Anemia with no evidence of GI bleed status post PRBC transfusion 5. TRINA nonoliguric PLAN: REJECT OPENER: DC lidocaine patch, continue with light sedation with fentanyl and Versed PULM: HOB 30 degrees. Maintain Sp02 94-98%. Titrate down oxygen as tolerated. Vent changes: PEEP 14 tidal volume 300 respiratory rate 30, repeat ABG in 1 hour. ARDS protocol with low tidal volume ventilation strategy and maintain plateau pressure less than 30. Decadron 6 mg IV every 12. CARDIO: Echo showing moderate aortic stenosis and mild aortic regurgitation. Diastolic dysfunction grade 1. Maintain MAPs 60-65. Goal-directed echo at [facility] showed collapsible IVC will give 500 LR bolus. Titrate down Levophed and if unable will start vasopressin at 0.04 as patient has tachycardia. GI: OG feeds to resume at trophic rate RENAL: Strict I and O's, follow-up urine output after fluid bolus ID: Broaden coverage with Vanco and meropenem. Pro-Nik 0.06, MRSA nare +, blood culture negative 06/02. DTA is pending. Vanco level before fourth dose ENDO: Monitor FS per routine. Goal range 140-180. HEME: Lovenox 50 mg every 12 for DVT prophylaxis LINES/CATHETERS: Chambers catheter and right IJ central line DVT/GI PPX CODE STATUS: Full code. DISPOSITION: Requires monitoring in the ICU. VS,Fishbone, I+O VS, Fishbone, I+O Laboratory Tests 06/07/21 05:22 Vital Signs Date Time Temp Pulse Resp B/P (MAP) Pulse Ox O2 Delivery O2 Flow Rate FiO2 06/07/21 10:00 100 06/07/21 10:00 121 94/61 (72) 90 Ventilator 06/07/21 08:04 28 06/07/21 08:00 100.9 06/05/21 22:30 40.0 I&O- Last 24 Hours up to 6 AM 06/07/21 06:00 Intake Total 1828.7 ml Output Total 590 ml Balance 1238.7 ml NEGRITA MILAN MD Jun 07, 2021 10:42
[2021-06-07 11:34] LABS: ABG BASE EXCESS -1.9 (-2.0-2.0); ABG HCO3 25.3 MEQ/L (22.0-26.0); ABG O2 SATURATION 88.9 % (95.0-99.0); ABG PARTIAL PRESSURE CO2 57.9 mmHg (35.0-45.0); ABG PARTIAL PRESSURE O2 63.4 mmHg (75.0-100.0); ABG STANDARD HCO3 22.7 MEQ/L (22.0-26.0); ABG TOTAL CO2 27.1 MEQ/L (23.0-31.0); ABG pH (ARTERIAL) 7.259 UNITS (7.350-7.450)
[2021-06-07] MEDS: VASOPRESSIN INJ 20 UNITS in NS 499 ML IV SCH ×2 (13:08→19:54)
[2021-06-07] MEDS ORDERED: VANCOMYCIN INTERMITTENT/PULSE DOSING BY CLINICAL PHARMACIST PER DOSING PROTOCOL XX SCH (14:55)
[2021-06-07 18:04] LABS: ABG BASE EXCESS -4.5 (-2.0-2.0); ABG HCO3 22.3 MEQ/L (22.0-26.0); ABG O2 SATURATION 94.1 % (95.0-99.0); ABG PARTIAL PRESSURE CO2 49.7 mmHg (35.0-45.0); ABG PARTIAL PRESSURE O2 78.3 mmHg (75.0-100.0); ABG STANDARD HCO3 20.6 MEQ/L (22.0-26.0); ABG TOTAL CO2 23.8 MEQ/L (23.0-31.0); ABG pH (ARTERIAL) 7.269 UNITS (7.350-7.450)
[2021-06-07] MEDS: **NOTE PATIENT COMMENT** MISC XX SCH (20:07)
[2021-06-07] MEDS: PANTOPRAZOLE 40MG VIAL (C9113 PER 1) IV SCH (20:07)
[2021-06-07] MEDS ORDERED: SENNA 8.6 MG TAB (SENOKOT) GT SCH (21:00)
[2021-06-08] VITALS (37 sets, daily range): BP systolic 59–132; BP diastolic 29–61
[2021-06-08] MEDS: fentaNYL CITRATE 1,000 MCG in NS 80 ML IV SCH (00:07)
[2021-06-08 04:34] LABS: MEAN CORPUSCULAR HEMOGLOBIN 28.4 pg (27.0-33.0); MEAN CORPUSCULAR HGB CONC 30.8 g/dl (32.0-36.5); MEAN CORPUSCULAR VOLUME 92.2 fl (80.0-96.0); PLATELET COUNT, AUTOMATED 234 10^3/uL (150-450); RED BLOOD COUNT 2.82 10^6/uL (4.00-5.40); WHITE BLOOD COUNT 24.9 10^3/uL (4.0-10.0)
[2021-06-08] MEDS: VASOPRESSIN INJ 20 UNITS in NS 499 ML IV SCH ×3 (05:00→20:22)
[2021-06-08] MEDS: MEROPENEM INJ 1 GM in IV 1 EA IV SCH ×2 (05:06→15:26)
[2021-06-08] MEDS: ENOXAPARIN 60MG/0.6ML SYRINGE (J1650 PER 10MG) SC SCH (05:06)
[2021-06-08] MEDS: SODIUM CHLORIDE 0.9% INJ 10 ML SYR IV SCH ×2 (05:06→17:16)
[2021-06-08 05:11] LABS: ALBUMIN 1.8 GM/DL (3.2-5.2); BILIRUBIN,TOTAL 0.6 MG/DL (0.2-1.0); CALCIUM LEVEL 8.2 MG/DL (8.8-10.2); CREATININE FOR GFR 2.15 MG/DL (0.55-1.30); GLOMERULAR FILTRATION RATE 24.3 (>45); PHOSPHORUS LEVEL 5.1 MG/DL (2.5-4.9); POTASSIUM SERUM 5.5 MEQ/L (3.5-5.1); TOTAL PROTEIN 6.2 GM/DL (6.4-8.2); VANCOMYCIN RANDOM 29.2 UG/ML
[2021-06-08] MEDS: NOREPINEPHRINE BITARTRATE 8 MG in D5W 492 ML IV SCH ×2 (08:11→17:02)
[2021-06-08] MEDS: dexameTHASONE 4 MG/ML 1ML VIAL (J1100 PER 1MG) IV SCH (08:13)
[2021-06-08] MEDS: CHLORHEXIDINE GLUCONATE 0.12 % 15ML UDC (PERIDEX ORAL RINSE) MT SCH (08:13)
[2021-06-08] MEDS: DOCUSATE SOD LIQ 100MG/10ML UDC GT SCH (08:13)
[2021-06-08] MEDS ORDERED: BARICITINIB 2MG TABLET (OLUMIANT) FOR EUA PO SCH (09:00)
[2021-06-08] MEDS ORDERED: SOD POLYSTYRENE SULFONATE SUSP 15 GM/60 ML UD NG ONE (09:00)
--- NOTE | 2021-06-08 09:09 | REP ---
INDICATION: intubation. COMPARISON: 06/07/2021, 06/06/2021 (3) TECHNIQUE: AP portable semi-erect FINDINGS: Endotracheal and nasogastric tubes along with a right jugular central venous catheter are all unchanged. There is a right-sided PICC line terminating in the right subclavian region. Pneumomediastinum and pneumopericardium noted and they now a extensive subcutaneous emphysema over the bilateral chest and neck bases. This could certainly obscure small pneumothoraces but I cannot definitely identify any. Diffuse alveolar and interstitial airspace opacities are again noted, heaviest in the retrocardiac left lower lobe. Enlargement of the left atrium with elevation of the left mainstem bronchus and some left ventricular configuration of the heart as before. IMPRESSION: Lines and tubes unchanged and presence of pneumopericardium and pneumomediastinum again seen. However, there is new extensive subcutaneous emphysema over both sides of the chest into the shoulders and neck base bilaterally. This extensive subcutaneous emphysema could certainly obscure small pneumothorax although I cannot confidently identify one at this time. Cardiomediastinal silhouette and extensive lung opacification are unchanged. <Electronically signed by Kendall Comer > 06/08/21 0906
[2021-06-08] MEDS: LACTULOSE 20 GM/30 ML SYRUP UD NG SCH ×2 (09:49→15:49)
[2021-06-08 09:59] LABS: ABG BASE EXCESS -7.1 (-2.0-2.0); ABG HCO3 20.7 MEQ/L (22.0-26.0); ABG O2 SATURATION 96.1 % (95.0-99.0); ABG PARTIAL PRESSURE CO2 53.8 mmHg (35.0-45.0); ABG PARTIAL PRESSURE O2 96.3 mmHg (75.0-100.0); ABG STANDARD HCO3 18.6 MEQ/L (22.0-26.0); ABG TOTAL CO2 22.4 MEQ/L (23.0-31.0)
[2021-06-08 10:06] LABS: ABG pH (ARTERIAL) 7.204 UNITS (7.350-7.450)
--- NOTE | 2021-06-08 10:45 | IPNPDOC ---
Text Note Date of Service The patient was seen on 06/08/21. NOTE CRITICAL CARE PROGRESS NOTE: SUBJECTIVE: Patient seen and examined at bedside. There were no overnight events. The patient has been requiring increasing doses of vasopressors and currently is on levo 12 and vasozero 0.04. The patient is on Versed drip, fentanyl drip. She is deeply sedated. She has a positive fluid balance and she has reduced urine output. She is tolerating tube feeds at 15 cc an hour. There were no bowel movements in the last 24 hours and she has low gastric residuals. All other ROS are negative except as mentioned above PHYSICAL EXAMINATION: VITAL SIGNS: Please see below. GENERAL APPEARANCE: On mechanical ventilation HEENT: no thyromegaly, trachea midline, PERRLA. normal mucous membranes RESPIRATORY: Intubated, crackles bilateral CARDIOVASCULAR: +s1 s2, no murmurs. ABDOMEN: nontender, not distended, +BS EXTREMITIES: no edema or erythema. palpable distal pulses SKIN: Diffuse subcu emphysema throughout the body NEUROLOGICAL: Sedated does not follow commands has brainstem reflexes PERTINENT LABS/IMAGING: Chest x-ray this morning TLC, ET tube and OG tube okay. Diffuse subcu emphysema is present. Right arm PICC line in place. echo 06/02 1. Normal global left ventricular systolic function with findings suggestive of grade 1 left ventricular diastolic dysfunction. 2. Aortic valve sclerosis with moderate aortic regurgitation and probably moderate aortic stenosis. 3. Mitral annulus calcification with moderate eccentric mitral regurgitation. Cannot rule out anterior mitral valve leaflet prolapse. 4. Mild to moderate tricuspid regurgitation with moderate pulmonary hypertension. 5. A small pericardial effusion was noted. No evidence of cardiac tamponade. ASSESSMENT: 1. Acute hypoxic respiratory failure secondary to Covid pneumonia/ARDS cant rule out bacterial co-infection. 2. Sepsis present on admission 3. Community-acquired pneumonia with risk factors for multidrug-resistant organisms, MRSA nare positive 4. Anemia with no evidence of GI bleed status post PRBC transfusion 5. TRINA oliguric likely ATN from sepsis and supratherapeutic Vanco level, hyperkalemic 6. Diffuse subcutaneous emphysema likely due to an air leak however there is no apparent pneumothorax PLAN: PUBLIC ADDRESS ANNOUNCER: Sedation vacation to assess mental status then keep lightly sedated with Versed and fentanyl. PULM: HOB 30 degrees. Maintain Sp02 94-98%. Titrate down oxygen as tolerated. ARDS protocol with low tidal volume ventilation strategy and maintain plateau pressure less than 30. Decadron 6 mg IV every 12. ABG 7.2/58/96 on 100/14/30/300, vent changes: PEEP 12, FiO2 90%. CARDIO: Maintain MAPs 60-65. Continue with vaso and levo titrate down as tolerated. We will place a line today. GI: Continue with trickle feeds, start lactulose and give Kayexalate x1. RENAL: Renal consult for CRRT as patient is oliguric, hyperkalemic and needs volume management ID: Pharmacy to monitor Vanco levels and redose Vanco when appropriate, continue with meropenem, start micafungin as patient is having worsening shock and leukocytosis, repeat blood cultures, continue with baricitinib 1 mg dailyday 2, check fungitell ENDO: Monitor FS per routine. Goal range 140-180. Does not currently need any insulin at this time. HEME: Lovenox 50 mg every 12 for DVT prophylaxis LINES/CATHETERS: Chambers catheter and right IJ central line. Will place hemodialysis catheter DVT/GI PPX CODE STATUS: Full code. I spoke with the daughter Clarisa and updated her with her mother's poor prognosis. DISPOSITION: Requires monitoring in the ICU. VS,Fishbone, I+O VS, Fishbone, I+O Laboratory Tests 06/08/21 04:00 Vital Signs Date Time Temp Pulse Resp B/P (MAP) Pulse Ox O2 Delivery O2 Flow Rate FiO2 06/08/21 08:40 30 96 100 06/08/21 08:11 88/54 06/08/21 06:00 126 Ventilator 06/08/21 04:00 98.1 06/05/21 22:30 40.0 I&O- Last 24 Hours up to 6 AM 06/08/21 06:00 Intake Total 2227.3 ml Output Total 735 ml Balance 1492.3 ml NEGRITA MILAN MD Jun 08, 2021 10:45
[2021-06-08] MEDS ORDERED: PILL CUTTER 1 EACH XX PRN (10:50)
[2021-06-08] MEDS ORDERED: SODIUM CHLORIDE 0.9% INJ 10 ML SYR IV PRN (10:55)
[2021-06-08] MEDS ORDERED: MICAFUNGIN SODIUM 100 MG in D5W MINI-BAG PLUS 100 ML IV SCH (11:00)
[2021-06-08] MEDS: ACETAMINOPHEN 325 MG/10.15 ML UDC GT PRN (12:25)
[2021-06-08] MEDS: LACRILUBE (AKWA TEARS) OPHTH OINT 3.5 GM OU SCH ×3 (12:38→17:05)
[2021-06-08] MEDS ORDERED: HEPARIN SOD (PORCINE) 5000UNITS/ML 1ML VIAL/SYRINGE IV PRN (14:15)
[2021-06-08] MEDS ORDERED: ESMOLOL HCL 2,000 MG in IV 1 EA IV SCH (14:55)
[2021-06-08] MEDS ORDERED: HEPARIN DRIP 25,000 UNITS in IV 1 EA IV SCH (15:00)
--- NOTE | 2021-06-08 15:34 | ROOPDOC ---
[facility] Report Of Operation Report of Operation INDICATION: Hypotension PROCEDURE: Right femoral arterial line placement PROCEDURE SAND MILL OPERATOR: Dr Van CONSENT: Consent was implied as the procedure was done under emergency circumstances PROCEDURE SUMMARY: A time out was performed. My hands were washed immediately prior to the procedure. I wore a surgical cap, mask with protective eyewear, sterile gown and sterile gloves throughout the procedure. The right inguinal region was prepped using chlorhexidine scrub and draped in sterile fashion using a three quarter sheet drape and sterile towels. Using ultrasound guidance the right femoral artery was identified. Anesthesia was achieved using 1% lidocaine. The introducer needle was inserted into the femoral artery. Arterial blood was withdrawn. The syringe was removed and a guidewire was advanced through the needle into the femoral artery. The needle was exchanged over the wire for an arterial catheter. The wire was removed and the catheter was secured to the skin using a suture. The patient tolerated the procedure without any hemodynamic compromise. At time of procedure completion, the catheter was connected to the game designer and calibrated. Appropriate waveform and blood pressure tracing was observed. Estimated blood loss is 10 cc. NEGRITA VAN MD Jun 08, 2021 15:34
--- NOTE | 2021-06-08 15:39 | ROOPDOC ---
[facility] Report Of Operation Report of Operation INDICATION: Access for hemodialysis PROCEDURE: Left femoral dual-lumen catheter for dialysis PROCEDURE MAIL PROCESSING ASSOCIATE: Dr Van CONSENT: Consent was implied as the procedure was done under emergency circumstances PROCEDURE SUMMARY: A time out was performed. My hands were washed immediately prior to the procedure. I wore a surgical cap, mask with protective eyewear, sterile gown and sterile gloves throughout the procedure. The left inguinal region was prepped using chlorhexidine scrub and draped in sterile fashion using a full drape and sterile probe cover and sterile gel employed. Anesthesia was achieved using 1% lidocaine. Using ultraound guidance the left femoral vein was accessed with the introducer needle. Venous blood was withdrawn. The syringe was removed and a guidewire was advanced into the introducer needle. A small incision was made at the skin surface with a scalpel and the introducer needle was exchanged for a dilator over the guidewire. After appropriate dilation was obtained, the dilator was exchanged over the wire for a dual-lumen central venous catheter. The wire was removed and the catheter was sutured in place at 20 cm. A sterile shield was placed over the catheter at the insertion site. The patient tolerated the procedure without any hemodynamic compromise. At time of procedure completion, all ports aspirated and flushed properly. Estimated blood loss is 20 cc. NEGRITA VAN MD Jun 08, 2021 15:39
[2021-06-08] MEDS ORDERED: MORPHINE 2 MG/ML 1ML VIAL (J2270) IV PRN (20:40)
[2021-06-08] MEDS ORDERED: LORazepam 2 MG/ML VIAL IV PRN (20:40)
--- NOTE | 2021-06-08 21:04 | IPNPDOC ---
Date Seen The patient was seen on 06/08/21. Progress Note Full consult was dictated, please see my separate note. Pt w/ multiorgan failure; VDRF on maximum Fi02 of 100%. Shock on high dose levophed and on Vasopressin. Oligoanuric renal failure secondary to shock. Trial of CRRT failed. Prognosis is grim. Discussed w/ Dr Van. I reached out to pt's Edmundo ([phone]) and discussed pt's clinical condition and high likelihood of . Her stated he was able to see her today and that "she would not have wanted all these machines." He did not want any attempt at resuscitation. I then spoke to pt's daughter Clarisa ([phone]) and reviewed her mother's current clinical condition. I discussed w/ Clarisa regarding options of continuing current measures with a DNR status VS option of withdrawal of life support/paving rammer. I also advised her that they could pick a time for withdrawal of life support if they liked. Daughter indicated understanding of the above and voiced option of FINISHING RANGE FEEDER at present time. I communicated the same to ICU attending. VS, I&O, 24H, [place] Vital Signs/I&O Vital Signs Date Time Temp Pulse Resp B/P (MAP) Pulse Ox O2 Delivery O2 Flow Rate FiO2 06/08/21 20:00 34 100 06/08/21 20:00 98.8 124 102/41 (61) 95 Ventilator 06/05/21 22:30 40.0 I&O- Last 24 Hours up to 6 AM 06/08/21 06:00 Intake Total 2227.3 ml Output Total 735 ml Balance 1492.3 ml Laboratory Data 24H LABS Laboratory Tests 2 06/08/21 04:00: Nucleated Red Blood Cells % (auto) 1.8H, Anion Gap 6L, Glomerular Filtration Rate 24.3L, Calcium Level 8.2L, Phosphorus Level 5.1#H, Magnesium Level 2.0, Total Bilirubin 0.6, Aspartate Amino Transf (AST/SGOT) 550H, Alanine Aminotransferase (ALT/SGPT) 269H, Alkaline Phosphatase 84, Total Protein 6.2L, Albumin 1.8L, Albumin/Globulin Ratio 0.4L, Random Vancomycin Level 29.2 06/08/21 09:22: Blood Gas Bicarbonate Standard 18.6L, Arterial Blood pH 7.204*L, Arterial Blood Partial Pressure CO2 53.8H, Arterial Blood Partial Pressure O2 96.3, Arterial Blood Total CO2 22.4L, Arterial Blood HCO3 20.7L, Arterial Blood Base Excess - 7.1L, Arterial Blood Oxygen Saturation 96.1 06/08/21 13:35: CBC/BMP Laboratory Tests 06/08/21 04:00 Microbiology Microbiology 06/08/21 Blood Culture, Received Pending 06/08/21 Blood Culture, Received Pending 06/06/21 Gram Stain - Final, Complete 06/06/21 Sputum Culture - Final, Complete Yeast Like Organism 06/02/21 Blood Culture - Final, Complete NO GROWTH AFTER 5 DAYS 06/02/21 Blood Culture - Final, Complete NO GROWTH AFTER 5 DAYS BROOK DYER DO Jun 08, 2021 21:04
--- NOTE | 2021-06-08 21:29 | CR ---
CONSULTATION DATE: 06/08/2021 REQUESTING PHYSICIAN: Robson Van MD REASON FOR CONSULTATION: Oligoanuric kidney injury in this patient with fluid overload and ventilator dependent respiratory failure and severe hypotension/sepsis. HISTORY OF PRESENT ILLNESS: Miss Dana Estrella is previously unknown to me. She is a 70-year-old female with a past medical history of CKD stage 3, hypertension and other comorbid conditions mentioned below. She was recently admitted to [facility] for COVID pneumonia and during that hospitalization was treated with baricitinib and had also completed a course of remdesivir. She was sent home on a prednisone taper. She was admitted again on May 30 because of syncopal episode at home and symptomatic anemia. Hemoglobin was 7.6 on admission. She was given IV fluids and packed blood cells. There was also a concern of sepsis and patient was started on broad spectrum empiric antibiotics. She deteriorated over the course of the admission. She had increasing oxygen requirements and was given a trial of Lasix but did not do well. Eventually she was seen by pulmonary critical care and started on BiPAP and she was also started on anticoagulation for concern of possible pulmonary embolus. The patient was having ongoing hypotension. She was thus given further IV fluids. Echocardiogram was obtained as well. On June 06, she was intubated. She has also recently had a left arm fracture and the arm is in a cast. Following intubation, the patient became more hemodynamically unstable. She was started on Levophed and then vasopressin was added. Her urine output precipitously dropped off. Laboratory studies revealed worsening renal parameters and hyperkalemia. Creatinine on admission was 1.8 and that did improve to 0.9. However, today creatinine is up to 2.1. The patient is on Levophed at 15 mcg per minute and vasopressin at 4 units per minute and she is on maximal FiO2 of 100% and is felt to be in fluid overload and I was requested to see the patient and to arrange for CRRT for help in control of her volume status given her significantly elevated FiO2 requirements and oligoanuric renal failure in the setting of shock. PAST MEDICAL HISTORY: 1. CKD stage 3. 2. Hypertension. 3. Hyperactive bladder. 4. Recent COVID pneumonia. 5. Seasonal allergies. HOME MEDICATIONS: 1. Vitamin B2. 2. Omeprazole. 3. Oxybutynin. 4. Recently on prednisone taper. ALLERGIES: CEPHALEXIN. SURGICAL HISTORY: 1. Cholecystectomy. 2. . 3. Hysterectomy. 4. Tubal ligation. FAMILY HISTORY: Significant for congestive heart failure in her father. SOCIAL HISTORY: She is a nonsmoker, no alcohol, no drugs. REVIEW OF SYSTEMS: Unable to obtain secondary to clinical condition. PHYSICAL EXAMINATION: Vital signs: Temperature 102.7, pulse 127, respiratory rate 30, blood pressure 115/52, saturating 93% on 100% FiO2. Review of Is and Os shows that patient is in cumulative at least 10 liter positive fluid balance. General: Patient is seen intubated and sedated. Obese female. Endotracheal tube in place. OG tube in place. There is a right IJ TLC. There is a right upper extremity PICC line. There is diffuse subcutaneous emphysema with appreciable crepitus in the right arm. The left arm was in a cast. Heart sounds are quite tachycardic. I am unable to appreciate if there is a murmur. Lungs: Show course breath sounds bilaterally. Abdomen: Soft. Genitourinary: Shows indwelling Chambers catheter. Extremities: Show 1+ edema throughout at minimum and in the dependent areas, 2+. Neurologic: She is sedate. Extremities are cool to touch. Chambers catheter has minimal urine. LABORATORY STUDIES: Sodium 132, potassium 5.5, bicarbonate 25, BUN 56, creatinine 2.1, phosphorus 5.1, magnesium 2.0, albumin 1.8, hemoglobin 8.0, platelets 234. Blood gas: pH 7.2, pCO2 53, pO2 96, random vancomycin 29. Blood cultures, June 02: No growth after five days. Sputum culture: Yeast-like organism. Repeat blood cultures, June 08 are pending. Chest x-ray this morning shows pneumopericardium, pneumomediastinum, new extensive subcutaneous emphysema into the shoulders and neck space bilaterally. Cardiomediastinal silhouette and extensive lung opacification, unchanged. INPATIENT MEDICATIONS: At the time of my visit, she was on Levophed infusion at 15 mcg per minute, vasopressin at 4 units per minute, versed, meropenem 1 gm IV q.8 hourly, Micafungin 100 mg IV daily, Tylenol p.r.n., baricitinib 1 mg p.o. daily, dexamethasone 6 mg IV b.i.d., docusate 100 mg b.i.d., Lovenox 50 mg subcu b.i.d., lactulose 30 mL q.8 hourly, Protonix 40 mg IV daily, Senokot two tabs q.h.s., Kayexalate 30 gm x1. PROBLEMS: 1. Oligoanuric acute renal failure in the setting of shock (most likely septic shock). The patient's urine output has precipitously dropped off the past two days coinciding with her hemodynamic instability. She was first started on Levophed infusion following intubation and since then has been pressor dependent and currently on both Levophed and vasopressin to maintain her MAP and renal injury is felt to be secondary to shock. She is oligoanuric yesterday and today and she is in considerable positive fluid status, more than 10 liters over the course of this admission and has significant oxygen requirement. FiO2 was 100%. The patient will have to be started on CRRT for control of her volume status and I think it is prudent to start today rather than to wait given her maximal FiO2 requirement and ongoing fluid administration in the form of various direct, etc. Orders are written for CRRT. I did try multiple times to reach her , Edmundo Estrella, this morning, this afternoon and this evening. However, I was unable to reach the despite multiple attempts. Dr. Van has informed me that he did speak to the about dialysis and her consented for dialysis initiation. 2. Fluid overload in this patient with ventilator dependent respiratory failure and currently with proximal FiO2 requirement of 100%. CRRT orders are written to remove 100 mL per hour if her pressor requirements remain steady. 3. Hyperkalemia. It will improve with CRRT. 4. Sepsis. Patient is febrile today with T max 103.9 this morning and then repeat temperature of 102.7 this afternoon. She has had repeat cultures. She is on broad spectrum antibiotics directed by the critical care team. She is also on antifungal therapy. She is requiring two pressors. She has multi-organ dysfunction and her overall prognosis is extremely poor. 5. Anticoagulation. I note patient is currently on Lovenox. There was also consideration for possible PE. Given that she is also in renal failure, I suggest that she should be switched over to a heparin drip. 6. COVID pneumonia. Manage as per primary team. She is mechanically ventilated. She has maximal FiO2 requirements. She is on IV Decadron. Defer use of baricitinib to the pulmonary critical care team. Suggest to switch to heparin drip given her concomitant renal failure. Overall, the patient's prognosis is very poor I feel given her renal failure, severe hemodynamic instability on two pressors, maximal FiO2 requirement and other comorbid conditions. Thank you for involving me in the care of Miss Estrella.
--- NOTE | 2021-06-09 12:14 | DS.PDOC ---
Discharge Summary General Date of Admission May 30, 2021 at 17:36 Date of Discharge 06/08/21 Discharge Summary PROCEDURES PERFORMED DURING STAY: intubation, arterial lines, central line IJ, dialysis catheter femoral vein ADMITTING DIAGNOSES: 1. acute hypoxic respiratory failure secondary to Covid ARDS DISCHARGE DIAGNOSES: acute hypoxic respiratory failure secondary to Covid ARDS TRINA requiring hemodialysis septic shock COMPLICATIONS/CHIEF COMPLAINT: Acute Kidney Injury,Hypotension,Syncope. HISTORY OF PRESENT ILLNESS: 70-year-old female with past medical history below and recent hospitalization for Covid pneumonia who was then discharged on tapering doses of prednisone presents again to the hospital for syncopal episode. On admission patient was septic from an unknown source and was started on broad-spectrum antibiotics. She was also found to be anemic and received 3 units of PRBC. She also received several liters of IV fluids and and since admission her weight is up 3 kg and she has a fluid balance that is 6 L positive. During her hospitalization here she she started to have increasing oxygen requirements and she then had a BNP of 15,000 and it was suspected that she may have been in decompensated heart failure and she was thus started on Lasix. Her respiratory status continued to decline to the point where she needed Vapotherm 100/40 and today she was noted to need BiPAP. Because of her worsening oxygen requirements she was started on heparin drip for presumed PE. She is also became hypotensive and her diuretics were held and she received 1.25 L this morning. Patient is seen and examined at bedside. It is difficult to take a history from her as she is dependent on the NIV. She is not in any distress. She is on BiPAP 15/10 with an FiO2 of 100%. Her SPO2 is 94%. PAST MEDICAL/SURGICAL HISTORY: Hypertension, CKD, cholecystectomy, , hysterectomy, tubal ligation FAMILY HISTORY: Father had stroke and CHF. Mother no significant past medical history. SOCIAL HISTORY: Denies smoker, alcohol, illicit drug use. HOSPITAL COURSE: patient was admitted to the medical floor initially for AHRF requiring vapotherm, she was transferred to ICU for increasing oxygen requirements. She was dependant on BPAP for 48s and then was subsequently intubated. She developed septic shock and TRINA. She was started on hemodialysis howver due to clot formation in the dialysis catheter the dialysis had to be stopped and was ineffective. After speaking with family they decided to make patient comfort measures and she was terminally extubated and immediately after extubation. DISCHARGE MEDICATIONS: Please see below. ALLERGIES: Please see below. DISPOSITION: 20 . TIME SPENT ON DISCHARGE: 20 minutes. Vital Signs/I&Os Vital Signs Date Time Temp Pulse Resp B/P (MAP) Pulse Ox O2 Delivery O2 Flow Rate FiO2 06/08/21 20:00 34 100 06/08/21 20:00 98.8 124 102/41 (61) 95 Ventilator 06/05/21 22:30 40.0 I&O- Last 24 Hours up to 6 AM 06/09/21 06:00 Intake Total 2278.8 ml Output Total 65 ml Balance 2213.8 ml Laboratory Data Labs 24H Laboratory Tests 2 06/08/21 13:35: Microbiology Microbiology 06/08/21 Blood Culture - Preliminary, Resulted No growth after 24 hours . All specim... 06/08/21 Blood Culture - Preliminary, Resulted No growth after 24 hours . All specim... 06/06/21 Gram Stain - Final, Complete 06/06/21 Sputum Culture - Final, Complete Yeast Like Organism 06/02/21 Blood Culture - Final, Complete NO GROWTH AFTER 5 DAYS 06/02/21 Blood Culture - Final, Complete NO GROWTH AFTER 5 DAYS Discharge Medications Scheduled Ergocalciferol (Vitamin D2) (Vitamin D2) 50,000 Units Cap, 50,000 UNITS PO 1XWK, (Reported) ON WEDNESDAYS Omeprazole (Omeprazole) 20 Mg Capsule.dr, 20 MG PO DAILY, (Reported) Oxybutynin Chloride (Oxybutynin Chloride ER) 10 Mg Tab, 10 MG PO DAILY, (Reported) Prednisone (Prednisone) 10 Mg Tablet, 10 MG PO TAPER, (Reported) Take 4 tabs daily x 3 days, then 3 tabs daily x 3 days, then 2 tabs daily x 3 days, then 1 tab daily x 3 days and stop Allergies Coded Allergies: cephalexin (Verified Allergy, Intermediate, hives, 11/27/18) NEGRITA MILAN MD Jun 09, 2021 12:14
== END 2021-06-08 21:16 | disposition expired | DRG 871 ==
LOC: M ED 15:12 → EDBD 15:12 → EDBEDREQSVC 17:07 → M ED INP 17:36 → EEVIPCON 17:36 → M ICU 05-31 09:34 → M 4MAIN 05-31 16:31 → M ICU 06-04 03:15
PROVIDERS: ADMIT Internal Medicine; ATTEND Internal Medicine Pulmonary Disease
PROC: 5A1945Z Respiratory Ventilation, 24-96 Consecutive Hours (ICD-10-PCS; principal; 2021-05-30)
PROC: 30233N1 Transfusion of Nonautologous Red Blood Cells into Peripheral Vein, Percutaneous Approach (ICD-10-PCS; 2021-05-31)
PROC: 04HK33Z Insertion of Infusion Device into Right Femoral Artery, Percutaneous Approach (ICD-10-PCS; 2021-06-02)
PROC: 05HM33Z Insertion of Infusion Device into Right Internal Jugular Vein, Percutaneous Approach (ICD-10-PCS; 2021-06-06)
DX: A41.9 Sepsis, unspecified organism (principal); U07.1 COVID-19; J12.82 Pneumonia due to coronavirus disease 2019; I26.99 Other pulmonary embolism without acute cor pulmonale; J96.01 Acute respiratory failure with hypoxia; N17.0 Acute kidney failure with tubular necrosis; R65.21 Severe sepsis with septic shock; N17.9 Acute kidney failure, unspecified; J93.82 Other air leak; T82.898A Other specified complication of vascular prosthetic devices, implants and grafts, initial encounter; J98.2 Interstitial emphysema; I95.9 Hypotension, unspecified; K21.9 Gastro-esophageal reflux disease without esophagitis; D64.9 Anemia, unspecified; Z51.5 Encounter for palliative care; Z79.899 Other long term (current) drug therapy; Z79.52 Long term (current) use of systemic steroids; I12.9 Hypertensive chronic kidney disease with stage 1 through stage 4 chronic kidney disease, or unspecified chronic kidney disease; N18.30 Chronic kidney disease, stage 3 unspecified; Y84.1 Kidney dialysis as the cause of abnormal reaction of the patient, or of later complication, without mention of misadventure at the time of the procedure